=== PATIENT | female | born 1980 | race Caucasian/White ===

== ENCOUNTER → 2017-08-13 | Outpatient (CLI) | payer OTHER ==
[~2017-08-13] MED LIST: BENTYL10 MG/1 ML IV; LEVAQUIN500 MG PO; LEXAPRO10 MG PO
[2017-08-13 13:36] LABS: BASOPHILS # (AUTO) 0.1 (0.0-0.1); BASOPHILS % 0.7 % (0.0-1.0); EOSINOPHILS # (AUTO) 0.3 (0.0-0.4); HEMATOCRIT 42.3 % (34.2-44.1); HEMOGLOBIN 14.4 g/dL (12.0-16.0); LYMPHOCYTES # (AUTO) 2.6 (1.0-3.2); LYMPHOCYTES % 27.5 % (18.0-39.1); MEAN CORPUSCULAR HEMOGLOBIN 31.2 pg (28-32); MEAN CORPUSCULAR VOLUME 91.8 fL (81-99); MONOCYTES # (AUTO) 0.8 (0.2-0.8); MONOCYTES % 8.7 % (4.4-11.3); NEUTROPHILS # (AUTO) 5.7 (2.1-6.9); NEUTROPHILS % 59.9 % (38.7-80.0); PLATELET COUNT 315 x10e3/uL (140-360); RED BLOOD COUNT 4.61 x10e6/uL (3.6-5.1); RED CELL DISTRIBUTION WIDTH 12.6 % (11.7-14.4)
[2017-08-13 13:37] LABS: BILIRUBIN,URINE NEGATIVE (NEGATIVE); KETONES,URINE NEGATIVE (NEGATIVE); LEUKOCYTE ESTERASE ,URINE NEGATIVE (NEGATIVE); NITRITE,URINE NEGATIVE (NEGATIVE); PROTEIN,URINE DIPSTICK NEGATIVE (NEGATIVE); URINE UROBILINOGEN 0.2 mg/dL (0.2 - 1)
[2017-08-13 13:45] LABS: CLARITY,URINE SL CLOUDY (CLEAR); COLOR,URINE YELLOW (YELLOW)
[2017-08-13 13:56] LABS: ALANINE AMINOTRANSFERASE 28 IU/L (0-55); ALBUMIN/GLOBULIN RATIO 1.5 (0.8-2.0); ALKALINE PHOSPHATASE 52 IU/L (40-150); ANION GAP 12.2 mmol/L (8-16); BLOOD UREA NITROGEN 14 mg/dL (7-26); BUN/CREATININE RATIO 21 (6-25); CALCIUM 9.5 mg/dL (8.4-10.2); CARBON DIOXIDE 28 mmol/L (22-29); CHLORIDE 104 mmol/L (98-107); CREATININE, SERUM 0.68 mg/dL (0.57-1.11); EST GLOMERULAR FILTRATION RATE > 60 ML/MIN (60-); GLUCOSE 97 mg/dL (74-118); POTASSIUM 5.2 mmol/L (3.5-5.1); SODIUM 139 mmol/L (136-145)
[2017-08-13 14:13] LABS: BACTERIA,URINE RARE /HPF; EPITHELIAL CELLS,URINE MODERATE /LPF; WBC,URINE (MAN) 0-5 /HPF (0-5)
--- NOTE | 2017-08-13 14:59 | Diagnostic Imaging Report ---
PROCEDURE:US GALLBLADDER COMPARISON:None. INDICATIONS:ABDOMINAL PAIN FINDINGS: LIVER: Size:17.2 cm in the right midclavicular line, enlarged Appearance:Increased echogenicity, smooth contour Mass:No focal masses GALLBLADDER: Stones/Sludge:Stones and sludge Appearance:Wall is thickened measuring 5 mm. No pericholecystic fluid or hydrops. Sonographic Qureshi's Sign:Negative BILE DUCTS: Intrahepatic Ducts:No dilation Extrahepatic Ducts:Common bile duct measures 0.9 cm, mildly dilated PANCREAS: Visualized portions of the neck and proximal body are normal. RIGHT KIDNEY: Size:11.3 cm in length Echogenicity:Normal Collecting System:No hydronephrosis Stone:None Cyst/Mass:None VESSELS: Aorta:Visualized portions are normal. Inferior Vena Cava:Visualized portions are normal. Main Portal Vein:1.3 cm, normal size with hepatopetal flow. FREE FLUID: No ascites or pleural effusions. CONCLUSION: Cholelithiasis with mild gallbladder wall thickening but without sonographic Qureshi's sign. Findings are suspicious for acute cholecystitis. Mildly dilated common bile duct measuring 9 mm which raises concern for choledocholithiasis. Consider MRCP for further evaluation. Findings discussed with Dr. Sheffield on 08/13/2017 at 2:55 pm. Dictated by: Oren Morse M.D. on 08/13/2017 at 14:44 Electronically approved by: Oren Morse M.D. on 08/13/2017 at 14:59
== END ==
LOC: US 12:25
PROVIDERS: ATTEND Surgery
DX: R10.9 Unspecified abdominal pain (principal); Z87.19 Personal history of other diseases of the digestive system
CPT/HCPCS: 36415; 76705; 80053; 81001; 85025

== ENCOUNTER → 2017-08-16 | Day surgery (SDC) | payer OTHER ==
[~2017-08-16] MED LIST changes: +ACETAMINOPHEN 1000 MG/100 ML IV ONE; +BUPIVACAINE 0.25%/EPI 30ML SDV INJ ONE; +DEXAMETHASONE SOD PHOS INJ 4 MG/ML VIAL ONE; +FENTANYL CITRATE/PF 100MCG/2 ML INJ ONE; +GLYCOPYRROLATE INJ 1MG/ 5 ML SYR ONE; +LIDOCAINE HCL 2% LOCAL INJ 5 ML SDV VIAL INJ ONE; +MIDAZOLAM HCL 2 MG/2 ML VIAL ONE; +NEOSTIGMINE 5 MG/5ML SYR ONE; +ONDANSETRON HCL INJ 2 MG/ML VIAL ONE; +PROPOFOL IV EMULSION 10 MG/ML 20 ML VIAL ONE; +ROCURONIUM BROMIDE 10 MG/ML 5ML VIAL ONE; +SEVOFLURANE INHAL SOLN 250 ML PEN BTL ONE; +TYLENOL # 31 EA PO
--- OUTSIDE RECORDS SUMMARY | 2017-08-16 07:53 | XMS REPORT ---
Author Author [facility] Address Unknown Phone Unavailable Care Team Providers Care Metal Weather Stripper Name Role Phone ABDOUL SHEFFIELD Unavailable Unavailable Problems This patient has no known problems. Allergies, Adverse Reactions, Alerts This patient has no known allergies or adverse reactions. Medications This patient has no known medications. Results Test Description Test Time Test Comments Text Results Atomic Results Result Comments US GALLBLADDER [place] [address] Patient Name: DARÍO GRAYSON MR #: [id number] : 1980 Age/Sex: 37/F Req #: [id number] Adm Physician: Ordered by: ABDOUL SHEFFIELD MD Report #: [id number] Location: US Room/Bed: __ Procedure: [id number] US/US GALLBLADDER Exam Date: Exam Time: REPORT STATUS: Signed PROCEDURE: US GALLBLADDER COMPARISON: None. INDICATIONS: ABDOMINAL PAIN FINDINGS: LIVER: Size: 17.2 cm in the right midclavicular line, enlarged Appearance: Increased echogenicity, smooth contour Mass: No focal masses GALLBLADDER: Stones/Sludge: Stones and sludge Appearance: Wall is thickened measuring 5 mm. No pericholecystic fluid or hydrops. Sonographic Qureshi's Sign: Negative BILE DUCTS: Intrahepatic Ducts: No dilation Extrahepatic Ducts: Common bile duct measures 0.9 cm, mildly dilated PANCREAS: Visualized portions of the neck and proximal body are normal. RIGHT KIDNEY: Size: 11.3 cm in length Echogenicity : Normal Collecting System: No hydronephrosis Stone: None Cyst/Mass : None VESSELS: Aorta: Visualized portions are normal. Inferior Vena Cava: Visualized portions are normal. Main Portal Vein: 1.3 cm, normal size with hepatopetal flow. FREE FLUID: No ascites or pleural effusions. CONCLUSION: Cholelithiasis with mild gallbladder wall thickening but without sonographic Qureshi's sign. Findings are suspicious for acute cholecystitis. Mildly dilated common bile duct measuring 9 mm which raises concern for choledocholithiasis. Consider MRCP for further evaluation. Findings discussed with Dr. Sheffield on 08/13/2017 at 2:55 pm. Dictated by: Oren Conklin M.D. on 08/13/2017 at 14:44 Electronically approved by: Oren Conklin M.D. on 08/13/2017 at 14:59 Dictated By: OREN CONKLIN MD 0900 Transcribed By: ROSENDA on 08/13/17 [id number] COPY TO: ABDOUL SHEFFIELD MD
--- NOTE | 2017-08-16 13:30 | Operative Report ---
DATE OF PROCEDURE: August 16, 2017 PREOPERATIVE DIAGNOSIS: Cholelithiasis, chronic cholecystitis. POSTOPERATIVE DIAGNOSIS: Cholelithiasis, chronic cholecystitis. PROCEDURE PERFORMED: Laparoscopic cholecystectomy. CENSUS TAKER: DIANA Franklin ESTIMATED BLOOD LOSS: Minimal. DRAINS: None. COMPLICATIONS: None. INDICATIONS AND FINDINGS: This patient is a 37-year-old female with at least an 11 year history of right upper quadrant pain radiating to the back, associated with fatty food. The patient was diagnosed at least 11 years ago when living in [place]. She was advised surgery, because of personal reasons was not able to proceed. The patient was seen by me in the office as an outpatient. She had an ultrasound that revealed gallstones. Liver chemistries were normal. There was no history of jaundice. INTRAOPERATIVE FINDINGS: The patient had a short cystic duct that did not appear to be dilated. There were at least 2 large stones in the neck of the gallbladder. DESCRIPTION OF PROCEDURE: With the patient lying on the operative table in the supine position, after administration of general anesthesia, she was prepped and draped for laparoscopic cholecystectomy. The procedure was begun by establishing a pneumoperitoneum in the right upper quadrant midclavicular line because of a previous tubal ligation. The pneumoperitoneum was insufflated to 15 mm of pressure, and then the 5 mm trocar was placed in that location and then the 5 mm camera introduced. Under direct vision with the camera, we placed an umbilical 10-11 trocar port site away from some adhesions to the omentum in the suprapubic region. After placement of the left anterior trocar, we rotated the patient to the left and with the head up and placed a 10-11 subxiphoid port and finally a right anterior axillary line trocar. The gallbladder was rather long. It was tense. It contained 2 large stones in its neck, and the wall was thickened. The upper part of the gallbladder was intrahepatic. All of this was consistent with chronic cholecystitis. We milked the 2 stones upwards at the area of the neck of the gallbladder and then retracted the gallbladder cephalad with grasping forceps through the 5 mm trocar in the right midclavicular line, and the neck of the gallbladder was retracted laterally and inferiorly with another 5 mm trocar. We began the dissection until we identified the cystic duct as well as the cystic artery. The junction with the common bile duct was seen 360 degrees circumferentially. At this point, we clipped the cystic duct distally 3 times, once proximally, as well as the cystic artery and then transected the 2 structures between titanium clips. Then we took the gallbladder down from the liver bed using a combination of electrocautery, hydrodissection, traction and countertraction. The gallbladder, as stated previously, was very long with the fundus of the gallbladder somewhat intrahepatic. We were able to dissect the gallbladder from the liver bed. Bleeding points were cauterized. The gallbladder was placed in an endobag and removed through the umbilical port. We had to enlarge the incision significantly to remove this large gallbladder. After we did that, we placed under direct vision with the camera four 1 Vicryls to close the large defect in the umbilical site and then reinstituted the pneumoperitoneum with a 10-11 trocar placed in that location. Inspected the operative field. There was no bile leak, no bleeding. We irrigated the right upper quadrant, the subhepatic fossa, and there was no bleeding, no bowel injury, no bile leak. We released the pneumoperitoneum. We tied the umbilical stitches, and then we placed two 0 Vicryls in the umbilical port site as well as the subxiphoid port, and then the skin of the umbilical port was closed using 3-0 silk interrupted vertical mattress. The remaining skin port sites were closed using wally. Marcaine 0.25% with epinephrine was given as a local block at the end of the case. The patient tolerated the procedure well and was taken to the recovery room in stable condition. Job#: [id number] CARMEN
== END | disposition home or self-care (01) ==
LOC: OR 07:50
PROVIDERS: ATTEND Surgery
DX: K80.00 Calculus of gallbladder with acute cholecystitis without obstruction (principal); K80.10 Calculus of gallbladder with chronic cholecystitis without obstruction; Z68.35 Body mass index [BMI] 35.0-35.9, adult; Z87.891 Personal history of nicotine dependence
CPT/HCPCS: 47562; 81025; 88304; C1766; J1100; J2001; J2250; J2405

== ENCOUNTER 2017-08-19 15:36 | Inpatient (IN) | payer OTHER ==
[~2017-08-19] VITALS: Ht 157.5 cm; Wt 88.0 kg
[~2017-08-19 15:36] MED LIST changes: -ACETAMINOPHEN 1000 MG/100 ML IV ONE; -BUPIVACAINE 0.25%/EPI 30ML SDV INJ ONE; -DEXAMETHASONE SOD PHOS INJ 4 MG/ML VIAL ONE; -FENTANYL CITRATE/PF 100MCG/2 ML INJ ONE; -GLYCOPYRROLATE INJ 1MG/ 5 ML SYR ONE; -LIDOCAINE HCL 2% LOCAL INJ 5 ML SDV VIAL INJ ONE; -MIDAZOLAM HCL 2 MG/2 ML VIAL ONE; -NEOSTIGMINE 5 MG/5ML SYR ONE; -ONDANSETRON HCL INJ 2 MG/ML VIAL ONE; -PROPOFOL IV EMULSION 10 MG/ML 20 ML VIAL ONE; -ROCURONIUM BROMIDE 10 MG/ML 5ML VIAL ONE; -SEVOFLURANE INHAL SOLN 250 ML PEN BTL ONE; -TYLENOL # 31 EA PO
[2017-08-19] MEDS ORDERED: KETOROLAC TROMETHAMINE 30 MG/ML VIAL IV STA (16:20)
[2017-08-19 16:26] LABS: BASOPHILS # (AUTO) 0.1 (0.0-0.1); BASOPHILS % 0.4 % (0.0-1.0); EOSINOPHILS # (AUTO) 0.2 (0.0-0.4); EOSINOPHILS % 1.8 % (0.0-6.0); HEMATOCRIT 44.1 % (34.2-44.1); HEMOGLOBIN 15.3 g/dL (12.0-16.0); LYMPHOCYTES # (AUTO) 1.8 (1.0-3.2); LYMPHOCYTES % 16.1 % (18.0-39.1); MEAN CORPUSCULAR HEMOGLOBIN 31.1 pg (28-32); MEAN CORPUSCULAR HGB CONC 34.7 g/dL (31-35); MEAN CORPUSCULAR VOLUME 89.6 fL (81-99); MONOCYTES # (AUTO) 0.8 (0.2-0.8); MONOCYTES % 7.3 % (4.4-11.3); NEUTROPHILS # (AUTO) 8.3 (2.1-6.9); PLATELET COUNT 315 x10e3/uL (140-360); RED BLOOD COUNT 4.92 x10e6/uL (3.6-5.1); RED CELL DISTRIBUTION WIDTH 12.3 % (11.7-14.4)
[2017-08-19 16:28] LABS: BILIRUBIN,URINE NEGATIVE (NEGATIVE); CLARITY,URINE SL CLOUDY (CLEAR); COLOR,URINE YELLOW (YELLOW); KETONES,URINE NEGATIVE (NEGATIVE); LEUKOCYTE ESTERASE ,URINE NEGATIVE (NEGATIVE); NITRITE,URINE NEGATIVE (NEGATIVE); PROTEIN,URINE DIPSTICK NEGATIVE (NEGATIVE); URINE UROBILINOGEN 0.2 mg/dL (0.2 - 1)
[2017-08-19 16:30] LABS: PREGNANCY TEST, URINE NEGATIVE (NEGATIVE)
[2017-08-19 16:38] LABS: ALANINE AMINOTRANSFERASE 672 IU/L (0-55); ALBUMIN/GLOBULIN RATIO 1.2 (0.8-2.0); ALKALINE PHOSPHATASE 193 IU/L (40-150); ANION GAP 14.7 mmol/L (8-16); BLOOD UREA NITROGEN 9 mg/dL (7-26); BUN/CREATININE RATIO 13 (6-25); CARBON DIOXIDE 25 mmol/L (22-29); CHLORIDE 102 mmol/L (98-107); CREATININE, SERUM 0.71 mg/dL (0.57-1.11); EST GLOMERULAR FILTRATION RATE > 60 ML/MIN (60-); GLUCOSE 105 mg/dL (74-118); POTASSIUM 3.7 mmol/L (3.5-5.1); SODIUM 138 mmol/L (136-145)
[2017-08-19 16:39] LABS: AMYLASE 28 U/L (25-125); LIPASE 16 U/L (8-78); RBC,URINE 0-5 /HPF (0-5); WBC,URINE (MAN) 0-5 /HPF (0-5)
[2017-08-19 16:40] LABS: BACTERIA,URINE FEW /HPF; EPITHELIAL CELLS,URINE MANY /LPF
[2017-08-19] MEDS ORDERED: ONDANSETRON HCL 4 MG ORAL DISINTEGRATING TAB PO STA (16:42)
[2017-08-19] MEDS ORDERED: HYDROMORPHONE 1MG/1ML INJ IV STA (16:42)
[2017-08-19] MEDS ORDERED: SODIUM CHLORIDE 0.9% 1000 ML BAG IV ONE (16:45)
[2017-08-19] MEDS ORDERED: DIATRIZOATE MEGL/DIATRIZOA SOD 30 ML BTL PO ONE (17:05)
[2017-08-19] MEDS ORDERED: METRONIDAZOLE 500MG/NS 100ML 100 ML IV STA (17:06)
[2017-08-19] MEDS ORDERED: LEVOFLOXACIN 750MG/D5W 150ML 150 ML IV ONE (17:15)
[2017-08-19 17:28] LABS: CREATINE KINASE 63 IU/L (29-168)
--- NOTE | 2017-08-19 18:51 | Diagnostic Imaging Report ---
PROCEDURE: CT ABDOMEN AND PELVIS WITH CONTRAST TECHNIQUE: The abdomen and pelvis were scanned utilizing a multidetector helical scanner from the diaphragm to the lesser trochanter after the IV administration of 100 cc of Isovue 370 and the oral administration of Gastrografin mixture. Coronal and sagittal multiplanar reformations were obtained. COMPARISON: None. INDICATIONS: ADB PAIN POST CHOLECYSCTECOTMY. Umbilical pain that radiates straight back. Onset around 2:30. FINDINGS: LOWER THORAX: Normal. HEPATOBILIARY: No focal hepatic lesions. No biliary ductal dilatation. Common bile duct measures 0.6 cm. 0.6 cm hypodensity adjacent to the distal common bile duct near the ampulla of Vater. On the sagittal and coronal images this is abutting the duct but does not appear to be intraluminal. Postoperative changes of a cholecystectomy with mild inflammatory changes and trace fluid adjacent to the liver. SPLEEN: No splenomegaly. PANCREAS: No focal masses or ductal dilatation. ADRENALS: No adrenal nodules. KIDNEYS/URETERS: No hydronephrosis, stones, or solid mass lesions. PELVIC ORGANS/BLADDER: Unremarkable. PERITONEUM / RETROPERITONEUM: Trace free fluid in the deep pelvis. LYMPH NODES: No lymphadenopathy. VESSELS: Unremarkable. GI TRACT: No distention or wall thickening. BONES AND SOFT TISSUES:. Fat stranding around the umbilicus related to laparoscopic approach. Several overlying skin wally consistent with arthroscopic port insertion.. IMPRESSION: 1. New postoperative changes of cholecystectomy with postoperative changes in the cholecystectomy bed with trace of free fluid adjacent to the right hepatic lobe anteriorly. 2. 0.6 cm hyperdensity in the pancreatic head and ampulla Vater abutting the common bile duct. This may represent a stone within the common bile duct. However, on several images it appears to abut the duct and is not within the duct. 3. Otherwise, no acute abnormalities identified. Dictated by: Luis Soas M.D. on 08/19/2017 at 18:52 Electronically approved by: Luis Sosa M.D. on 08/19/2017 at 18:52
--- NOTE | 2017-08-19 18:58 | History and Physical ---
CHIEF COMPLAINT: Abdominal pain. The patient is a 37-year-old female, who underwent laparoscopic cholecystectomy on August 16, 2017. The procedure was performed as an outpatient and she was discharged home. She was doing well until today, when she suddenly developed abdominal pain. The pain was located in the umbilical and suprapubic area and radiated to the side. No nausea, no vomiting, no fever or chills. The patient has been seen in the emergency room, where she is awaiting a CAT scan. The patient's white count is 11.7. His liver chemistries show normal bilirubin with an elevation of the AST to 119, ALT to 672, and alkaline phosphatase to 193. The patient's intraoperative findings were cholelithiasis with thickening of the gallbladder, large stones that were impacted in the neck of the gallbladder. Preoperatively, her liver chemistries were normal twice. She had an ultrasound as well as a CT scan preoperatively. Common bile duct was 0.9 cm. The patient's history dates back to at least 11 years with right upper quadrant pain. Because of personal reasons, she was not able to have surgery done at that time, when she lived in [place]. The past medical history and the rest of the history unchanged from the previous admission. Of note is the fact that the patient has a history of anxiety disorder. PAST MEDICAL HISTORY: Unchanged from preivous admission. REVIEW OF SYSTEMS : As per history of present illness. PHYSICAL EXAMINATION GENERAL: A 37-year-old female, in no acute distress. VITALS: She is afebrile with stable vital signs. HEAD, EYES, EARS, NOSE, AND THROAT: No acute process. LUNGS: Clear. HEART: Regular rhythm. ABDOMEN: Soft with some right upper quadrant tenderness. The wounds are healing well. ASSESMENT : Rule bile leak vs retaines common duct stone. PLAN : The patient is currently awaiting to undergo a CT scan of the abdomen and pelvis. This will guide further management. The plans for admission and for workup were discussed with the patient and she agrees with the plan. Job#: [id number] CQ MTDAlicia
[2017-08-19] MEDS ORDERED: ONDANSETRON HCL INJ 2 MG/ML VIAL IV PRN (19:00)
[2017-08-19] MEDS ORDERED: LEVOFLOXACIN 500MG/D5W 100ML IV SCH (19:00)
[2017-08-19] MEDS ORDERED: HYDROMORPHONE 1MG/1ML INJ IV PRN (19:00)
[2017-08-19] MEDS: D5.45%NS/KCL 20MEQ 1,000 ML IV SCH (19:41)
[2017-08-19] MEDS: KETOROLAC TROMETHAMINE 30 MG/ML VIAL IV PRN (21:10)
[2017-08-19 21:25] VITALS: BP 179/80
[2017-08-19] MEDS ORDERED: SODIUM CHLORIDE 0.9% 50ML 50 ML ONE (21:39)
[2017-08-19] MEDS ORDERED: IOPAMIDOL 370 MG/ML 200 ML INFUS..BTL INJ ONE (21:40)
[2017-08-19 23:06] VITALS: BP 179/80
[2017-08-20] VITALS: BP 179/80
[2017-08-20] MEDS ORDERED: METRONIDAZOLE 500MG/NS 100ML IV SCH
[2017-08-20] MEDS ORDERED: SODIUM CHLORIDE 0.9% 50ML 0 ML ONE (02:02)
[2017-08-20] MEDS ORDERED: IOPAMIDOL 370 MG/ML 200 ML INFUS..BTL INJ ONE (02:03)
[2017-08-20] MEDS: METRONIDAZOLE 500MG/NS 100ML 100 ML IV SCH ×4 (02:24→18:14)
[2017-08-20 02:31] VITALS: BP 105/58
[2017-08-20 04:00] VITALS: BP 115/65
[2017-08-20] MEDS: D5.45%NS/KCL 20MEQ 1,000 ML IV SCH ×3 (06:54→19:00)
[2017-08-20] MEDS: KETOROLAC TROMETHAMINE 30 MG/ML VIAL IV PRN (06:55)
[2017-08-20 06:57] LABS: BASOPHILS # (AUTO) 0.1 (0.0-0.1); BASOPHILS % 0.6 % (0.0-1.0); EOSINOPHILS # (AUTO) 0.2 (0.0-0.4); EOSINOPHILS % 2.3 % (0.0-6.0); HEMATOCRIT 35.1 % (34.2-44.1); HEMOGLOBIN 11.9 g/dL (12.0-16.0); LYMPHOCYTES # (AUTO) 1.6 (1.0-3.2); LYMPHOCYTES % 16.5 % (18.0-39.1); MEAN CORPUSCULAR HGB CONC 33.9 g/dL (31-35); MEAN CORPUSCULAR VOLUME 91.4 fL (81-99); MONOCYTES # (AUTO) 0.8 (0.2-0.8); MONOCYTES % 8.4 % (4.4-11.3); NEUTROPHILS % 71.8 % (38.7-80.0); PLATELET COUNT 278 x10e3/uL (140-360); RED BLOOD COUNT 3.84 x10e6/uL (3.6-5.1); RED CELL DISTRIBUTION WIDTH 12.3 % (11.7-14.4)
[2017-08-20 07:18] LABS: ALANINE AMINOTRANSFERASE 394 IU/L (0-55); ALBUMIN 3.2 g/dL (3.5-5.0); ALBUMIN/GLOBULIN RATIO 1.2 (0.8-2.0); ALKALINE PHOSPHATASE 170 IU/L (40-150); ANION GAP 10.7 mmol/L (8-16); BLOOD UREA NITROGEN 7 mg/dL (7-26); BUN/CREATININE RATIO 11 (6-25); CALCIUM 8.9 mg/dL (8.4-10.2); CARBON DIOXIDE 25 mmol/L (22-29); CHLORIDE 106 mmol/L (98-107); CREATININE, SERUM 0.62 mg/dL (0.57-1.11); EST GLOMERULAR FILTRATION RATE > 60 ML/MIN (60-); GLUCOSE 103 mg/dL (74-118); POTASSIUM 3.7 mmol/L (3.5-5.1); SODIUM 138 mmol/L (136-145)
[2017-08-20 08:20] VITALS: BP 114/75
[2017-08-20 20:00] VITALS: BP 122/73
[2017-08-20 20:05] VITALS: BP 122/73
[2017-08-20] MEDS: LEVOFLOXACIN 500MG/D5W 100ML 100 ML IV SCH ×2 (20:46→20:47)
[2017-08-21] VITALS: BP 110/52
[2017-08-21] MEDS: METRONIDAZOLE 500MG/NS 100ML 100 ML IV SCH ×2 (00:20→05:28)
[2017-08-21] MEDS: D5.45%NS/KCL 20MEQ 1,000 ML IV SCH (03:00)
[2017-08-21 04:00] VITALS: BP 125/59
[2017-08-21 07:29] LABS: BASOPHILS # (AUTO) 0.1 (0.0-0.1); BASOPHILS % 0.6 % (0.0-1.0); EOSINOPHILS # (AUTO) 0.4 (0.0-0.4); EOSINOPHILS % 4.9 % (0.0-6.0); HEMATOCRIT 35.2 % (34.2-44.1); HEMOGLOBIN 11.8 g/dL (12.0-16.0); LYMPHOCYTES # (AUTO) 2.1 (1.0-3.2); LYMPHOCYTES % 24.6 % (18.0-39.1); MEAN CORPUSCULAR HGB CONC 33.5 g/dL (31-35); MEAN CORPUSCULAR VOLUME 92.4 fL (81-99); MONOCYTES # (AUTO) 0.7 (0.2-0.8); MONOCYTES % 8.4 % (4.4-11.3); NEUTROPHILS # (AUTO) 5.1 (2.1-6.9); NEUTROPHILS % 61.3 % (38.7-80.0); PLATELET COUNT 278 x10e3/uL (140-360); RED BLOOD COUNT 3.81 x10e6/uL (3.6-5.1); RED CELL DISTRIBUTION WIDTH 12.5 % (11.7-14.4)
[2017-08-21 07:59] LABS: ALANINE AMINOTRANSFERASE 229 IU/L (0-55); ALBUMIN/GLOBULIN RATIO 1.3 (0.8-2.0); ALKALINE PHOSPHATASE 145 IU/L (40-150); ANION GAP 9.7 mmol/L (8-16); BLOOD UREA NITROGEN 10 mg/dL (7-26); BUN/CREATININE RATIO 16 (6-25); CALCIUM 8.9 mg/dL (8.4-10.2); CARBON DIOXIDE 25 mmol/L (22-29); CHLORIDE 108 mmol/L (98-107); CREATININE, SERUM 0.64 mg/dL (0.57-1.11); EST GLOMERULAR FILTRATION RATE > 60 ML/MIN (60-); GLUCOSE 114 mg/dL (74-118); POTASSIUM 3.7 mmol/L (3.5-5.1); SODIUM 139 mmol/L (136-145)
[2017-08-21 08:33] VITALS: BP 123/69
[2017-08-21 11:19] VITALS: BP 123/69
[2017-08-22] MEDS ORDERED: TYLENOL # 31 EA PO (10:32)
--- NOTE | 2017-09-02 09:17 | Diagnostic Imaging Report ---
PROCEDURE: MRCP WITHOUT CONTRAST TECHNIQUE: Multisequence multiplanar MRCP images were obtained of the abdomen without administration contrast. COMPARISON: CT 08/19/2017 INDICATIONS: Not provided. FINDINGS: LACK OF GADOLINIUM DECREASES SENSITIVITY FOR DETECTION OF INTRA-ABDOMINAL PATHOLOGY. LIVER: Normal signal and contour. No focal signal abnormalities. BILIARY: Cholecystectomy with fluid and stranding within the surgical bed. No ductal dilatation or filling defect. Calcifications are difficult to visualize with MRI. Previous punctate density in the pancreatic head on CT is not seen as a filling defect on the current MRI suggesting this represents a parenchymal, CBD wall, or vascular calcification. PANCREAS: No mass or ductal dilatation. SPLEEN: No splenomegaly. ADRENALS: No nodules. KIDNEYS: No hydronephrosis or mass in the imaged portion of the kidneys. PERITONEUM / RETROPERITONEUM: Trace perihepatic free fluid. LYMPH NODES: No upper abdominal lymphadenopathy. VESSELS: Unremarkable. BONES AND SOFT TISSUES: No suspicious marrow signal abnormalities. T2 hyperintense edema in the epigastric fat deep to an area of dephasing from skin wally. IMPRESSION: 1. No intrahepatic or extrahepatic biliary ductal dilatation. No evidence of choledocholithiasis. 2. Cholecystectomy with post-operative stranding and fluid in the surgical bed. Dictated by: Oren Morse M.D. on 08/20/2017 at 13:08 Electronically approved by: Oren Morse M.D. on 08/20/2017 at 13:08
== END 2017-08-21 13:03 | disposition home or self-care (01) | DRG 395 ==
LOC: ER 15:36 → MED/SURG 19:22
PROVIDERS: ADMIT Surgery; ATTEND Surgery
DX: K91.86 Retained cholelithiasis following cholecystectomy (principal); F41.9 Anxiety disorder, unspecified; Y83.6 Removal of other organ (partial) (total) as the cause of abnormal reaction of the patient, or of later complication, without mention of misadventure at the time of the procedure
CPT/HCPCS: 36415; 74177; 74181; 80053; 81001; 81025; 82150; 82550; 82553; 83605; 83690; 84484; 85025; 87040; 99284; J1170; J1885; J1956; J7030; Q9967

== ENCOUNTER 2017-08-22 04:50 | Inpatient (IN) | payer OTHER ==
[~2017-08-22] VITALS: Ht 160 cm; Wt 92.5 kg
--- OUTSIDE RECORDS SUMMARY | 2017-08-22 04:53 | XMS REPORT | Continuity of Care Document ---
Author Author [facility] Organization [facility] Address [address] [place] [address] Phone Unavailable Care Team Providers Care Automotive Sales Professional Name Role Phone JANICEELIANE FLEMING PCP Insurance Providers Guarantor Josette Barajaserine Address [address] [place] [address] Email [email or web address] [email or web address] [employer] Hmo Policy Number [id number] Subscriber's Name YolandasavannahDarío Relationship 18 Self / Same As Patient Group Number [id number] Group Name RAMEZ Effective Date 17 Advance Directives Directive Response Recorded Date/Time Does the patient have an advance directive? No 08/19/17 10:41pm If yes, is advance directive on file with [facility]? No 08/19/17 10:41pm If not on file with [facility] will patient provide a copy? No 08/19/17 10:41pm Do you have a Directive to Physician? No 08/19/17 6:34pm Do you have a Medical Power of Rand Maker? No 08/19/17 6:34pm Do you have an out of hospital Do Not Resuscitate Order? No 08/19/17 6:34pm Do you have any special needs we should be aware of? No 08/19/17 6:34pm Do you have a support person here with you today? Yes 08/19/17 6:34pm Did patient receive Notice of Privacy Practices? Yes 08/19/17 6:34pm Did patient receive patient rights and responsibilities? Yes 08/19/17 6:34pm Problems Medical Problem Onset Date Status Common bile duct stone Unknown Medications Current Home Medications Medication Dose Units Route Directions Days Qty Instructions Start Date Dicyclomine Hcl (Bentyl) 10 Mg/1 Ml Ampul 10 Mg Intraven Four Times Daily Escitalopram Oxalate (Lexapro) 10 Mg Tablet 10 Mg Oral Daily 30 Tab Levofloxacin (Levaquin) 500 Mg Tablet 500 Mg Oral Daily Social History Social History Problem Response Recorded Date/Time Onset Date Status Hx Psychiatric Problems No 08/19/2017 10:41pm Not Applicable Not Applicable Hx Eating Disorder No 08/19/2017 10:41pm Not Applicable Not Applicable Hx Substance Use Disorder No 08/19/2017 10:41pm Not Applicable Not Applicable Hx Depression No 08/19/2017 10:41pm Not Applicable Not Applicable Hx Alcohol Use No 08/19/2017 10:41pm Not Applicable Not Applicable Hx Substance Use Treatment No 08/19/2017 10:41pm Not Applicable Not Applicable Hx Physical Abuse No 08/19/2017 10:41pm Not Applicable Not Applicable Smoking Status Start Date Stop Date Current every day smoker Hospital Discharge Instructions No hospital discharge instruction information available. Plan of Care Discharge Date 08/21/17 1:03pm Disposition HOME, SELF-CARE Instructions/Education Provided Abdominal Pain - Adult Prescriptions See Medication Section Additional Instructions/Education diet as tolerated follow up with your pcp follow up with Dr. Kim Winter in (1) week return to ER if any symptoms persist Functional Status Query Response Date Recorded Assistive Devices None August 19, 2017 11:06pm Ambulation Ability Independent August 19, 2017 11:06pm Toileting Ability Independent August 19, 2017 11:06pm Allergies, Adverse Reactions, Alerts No known allergies. Immunizations No immunization information available. Vital Signs Acute Vital Signs Vital Response Date/Time Temperature (Fahrenheit) 97.8 degrees F (97.6 - 99.5) 08/21/2017 11:19am Pulse Pulse Rate (adult) 81 bpm (60 - 90) 08/21/2017 11:19am Respiratory Rate 18 bpm (12 - 24) 08/21/2017 11:19am Blood Pressure 123/69 mm Hg 08/21/2017 11:19am Height 5 ft 2 in 08/19/2017 4:13pm Weight 194 lb 08/19/2017 4:13pm Body Mass Index 35.5 kg/m^2 08/19/2017 10:41pm Results Laboratory Results Test Name Result Units Flags Reference Collection Date/Time Result Date/ Time Comments White Blood Count 8.33 x10e3/uL 4.8-10.8 08/21/2017 6:40am 08/21/2017 7 :44am Red Blood Count 3.81 x10e6/uL 3.6-5.1 08/21/2017 6:40am 08/21/2017 7: 44am Hemoglobin 11.8 g/dL L 12.0-16.0 08/21/2017 6:40am 08/21/2017 7:44am Hematocrit 35.2 % 34.2-44.1 08/21/2017 6:40am 08/21/2017 7:44am Mean Corpuscular Volume 92.4 fL 81-99 08/21/2017 6:40am 08/21/2017 7: 44am Mean Corpuscular Hemoglobin 31.0 pg 28-32 08/21/2017 6:40am 08/21/2017 7:44am Mean Corpuscular Hemoglobin Concent 33.5 g/dL 31-35 08/21/2017 6:40am 08/21/2017 7:44am Red Cell Distribution Width 12.5 % 11.7-14.4 08/21/2017 6:40am 2017 7:44am Platelet Count 278 x10e3/uL 140-360 08/21/2017 6:40am 08/21/2017 7: 44am Neutrophils (%) (Auto) 61.3 % 38.7-80.0 08/21/2017 6:40am 08/21/2017 7: 44am Lymphocytes (%) (Auto) 24.6 % 18.0-39.1 08/21/2017 6:40am 08/21/2017 7: 44am Monocytes (%) (Auto) 8.4 % 4.4-11.3 08/21/2017 6:40am 08/21/2017 7: 44am Eosinophils (%) (Auto) 4.9 % 0.0-6.0 08/21/2017 6:40am 08/21/2017 7: 44am Basophils (%) (Auto) 0.6 % 0.0-1.0 08/21/2017 6:40am 08/21/2017 7:44am IM GRANULOCYTES % 0.2 % 0.0-1.0 08/21/2017 6:40am 08/21/2017 7:44am Neutrophils # (Auto) 5.1 2.1-6.9 08/21/2017 6:40am 08/21/2017 7:44am Lymphocytes # (Auto) 2.1 1.0-3.2 08/21/2017 6:40am 08/21/2017 7:44am Monocytes # (Auto) 0.7 0.2-0.8 08/21/2017 6:40am 08/21/2017 7:44am Eosinophils # (Auto) 0.4 0.0-0.4 08/21/2017 6:40am 08/21/2017 7:44am Basophils # (Auto) 0.1 0.0-0.1 08/21/2017 6:40am 08/21/2017 7:44am Absolute Immature Granulocyte (auto 0.02 x10e3/uL 0-0.1 08/21/2017 6: 40am 08/21/2017 7:44am Urine Color YELLOW YELLOW 08/19/2017 4:00pm 08/19/2017 4:28pm Urine Clarity SL CLOUDY CLEAR 08/19/2017 4:00pm 08/19/2017 4:28pm Urine Specific Ruth 1.015 1.010-1.025 08/19/2017 4:00pm 2017 4:28pm Urine pH 8 H 5 - 7 08/19/2017 4:00pm 08/19/2017 4:28pm Urine Leukocyte Esterase NEGATIVE NEGATIVE 08/19/2017 4:00pm 2017 4:28pm Urine Nitrite NEGATIVE NEGATIVE 08/19/2017 4:00pm 08/19/2017 4:28pm Urine Protein NEGATIVE NEGATIVE 08/19/2017 4:00pm 08/19/2017 4:28pm Urine Glucose (UA) NEGATIVE NEGATIVE 08/19/2017 4:00pm 08/19/2017 4: 28pm Urine Ketones NEGATIVE NEGATIVE 08/19/2017 4:00pm 08/19/2017 4:28pm Urine Urobilinogen 0.2 mg/dL 0.2 - 1 08/19/2017 4:00pm 08/19/2017 4: 28pm Urine Bilirubin NEGATIVE NEGATIVE 08/19/2017 4:00pm 08/19/2017 4: 28pm Urine Blood 4+ H NEGATIVE 08/19/2017 4:00pm 08/19/2017 4:28pm Urine WBC 0-5 /HPF 0-5 08/19/2017 4:00pm 08/19/2017 4:40pm Urine RBC 0-5 /HPF 0-5 08/19/2017 4:00pm 08/19/2017 4:40pm Urine Bacteria FEW /HPF NONE 08/19/2017 4:00pm 08/19/2017 4:40pm Urine Epithelial Cells MANY /LPF NONE 08/19/2017 4:00pm 08/19/2017 4: 40pm Urine Test NEGATIVE NEGATIVE 08/19/2017 4:00pm 08/19/2017 4 :30pm Sodium Level 139 mmol/L 136-145 08/21/2017 6:40am 08/21/2017 8:01am Potassium Level 3.7 mmol/L 3.5-5.1 08/21/2017 6:40am 08/21/2017 8:01am Chloride Level 108 mmol/L H 98-107 08/21/2017 6:40am 08/21/2017 8:01am Carbon Dioxide Level 25 mmol/L -08/21/2017 6:40am 08/21/2017 8: 01am Anion Gap 9.7 mmol/L 8-08/21/2017 6:40am 08/21/2017 8:01am Blood Urea Nitrogen 10 mg/dL 7-08/21/2017 6:40am 08/21/2017 8:01am Creatinine 0.64 mg/dL 0.57-1.11 08/21/2017 6:40am 08/21/2017 8:01am BUN/Creatinine Ratio 16 6-25 08/21/2017 6:40am 08/21/2017 8:01am Estimat Glomerular Filtration Rate > 60 ML/MIN 60- 08/21/2017 6:40am 8:01am Ranges were taken from the National Kidney Disease Education Program and the National Kidney Foundation literature. Reference ranges: 60 or greater: Normal 16-59 (for 3 consecutive months): Chronic kidney disease 15 or less: Kidney failure Glucose Level 114 mg/dL 74-118 08/21/2017 6:40am 08/21/2017 8:01am Calcium Level 8.9 mg/dL 8.4-10.2 08/21/2017 6:40am 08/21/2017 8:01am Lactic Acid Level 10.0 MG/DL 4.5-19.8 08/19/2017 4:20pm 08/19/2017 5: 15pm Total Bilirubin 0.3 mg/dL 0.2-1.2 08/21/2017 6:40am 08/21/2017 8:01am Aspartate Amino Transf (AST/SGOT) 16 IU/L 5-34 08/21/2017 6:40am 2017 8:01am Alanine Aminotransferase (ALT/SGPT) 229 IU/L H 0-55 08/21/2017 6:40am 8:01am Total Protein 5.4 g/dL L 6.5-8.1 08/21/2017 6:40am 08/21/2017 8:01am Albumin 3.0 g/dL L 3.5-5.0 08/21/2017 6:40am 08/21/2017 8:01am Globulin 2.4 g/dL 2.3-3.5 08/21/2017 6:40am 08/21/2017 8:01am Albumin/Globulin Ratio 1.3 0.8-2.0 08/21/2017 6:40am 08/21/2017 8: 01am Alkaline Phosphatase 145 IU/L 40-150 08/21/2017 6:40am 08/21/2017 8: 01am Creatine Kinase 63 IU/L 29-168 08/19/2017 4:00pm 08/19/2017 5:29pm Creatine Kinase MB 0.30 ng/mL 0-5.0 08/19/2017 4:00pm 08/19/2017 5: 37pm Troponin I < 0.001 ng/mL 0-0.300 08/19/2017 4:00pm 08/19/2017 5:37pm Amylase Level 28 U/L 25-125 08/19/2017 4:00pm 08/19/2017 4:40pm Lipase 16 U/L 8-78 08/19/2017 4:00pm 08/19/2017 4:40pm Microbiology Results Procedure Source Organism/Result Collection Date/Time Result Date/Time Result Status Blood Culture Blood NO GROWTH AFTER 24 HOURS 08/19/2017 4:22pm 08/20/2017 4:43pm Preliminary Procedures Procedure Status Date Provider(s) Laparoscopic cholecystectomy Completed 08/16/17 ABDOUL ORNELAS MD US gallbladder Active 08/13/17 ABDOUL ORNELAS MD Computed tomography of abdomen and pelvis with contrast Active 08/19/17 DESTINEE STEVENS MD Magnetic resonance cholangiopancreatography (MRCP) without contrast Active DESTINEE STEVENS MD Encounters Encounter Location Arrival/Admit Date Discharge/Depart Date Attending Provider Discharged Inpatient [facility] 08/19/17 7:22pm 08/21/17 1:03pm ABDOUL ORNELAS MD Registered Surgical Day Care [facility] 08/16/17 8:13am ABDOUL ORNELAS MD Registered Clinic [facility] 08/13/17 12:25pm ABDOUL ORNELAS MD
[2017-08-22] MEDS ORDERED: KETOROLAC TROMETHAMINE 30 MG/ML VIAL IV STA (05:48)
[2017-08-22] MEDS ORDERED: PANTOPRAZOLE 40 MG 10ML VIAL IV STA (05:48)
[2017-08-22] MEDS ORDERED: SODIUM CHLORIDE 0.9% 1000ML 1,000 ML IV STA (05:48)
--- NOTE | 2017-08-22 05:49 | Diagnostic Imaging Report ---
ABDOMEN COMP INCL UPR or DECUB Clinical history: Laparoscopic cholecystectomy, abdominal pain Technique: AP view abdomen Comparison: None Findings: Limited by portable technique. Clips and wally overlie the right upper abdomen. Moderate stool intermixed with contrast is seen in the colon. Mottled lucencies over the pelvis, presumably intraluminal contents/stool. No evidence of free air. Impression: Nonobstructive bowel gas pattern with moderate stool burden. Signed by: Dr Antoinette Thurman MD on 08/22/2017 5:46 AM
[2017-08-22 06:34] LABS: BASOPHILS # (AUTO) 0.1 (0.0-0.1); BASOPHILS % 0.5 % (0.0-1.0); EOSINOPHILS # (AUTO) 0.2 (0.0-0.4); EOSINOPHILS % 1.7 % (0.0-6.0); HEMATOCRIT 43.1 % (34.2-44.1); HEMOGLOBIN 14.5 g/dL (12.0-16.0); LYMPHOCYTES # (AUTO) 1.8 (1.0-3.2); LYMPHOCYTES % 13.1 % (18.0-39.1); MEAN CORPUSCULAR HEMOGLOBIN 30.9 pg (28-32); MEAN CORPUSCULAR HGB CONC 33.6 g/dL (31-35); MEAN CORPUSCULAR VOLUME 91.7 fL (81-99); NEUTROPHILS # (AUTO) 10.7 (2.1-6.9); NEUTROPHILS % 77.3 % (38.7-80.0); PLATELET COUNT 343 x10e3/uL (140-360); RED CELL DISTRIBUTION WIDTH 12.3 % (11.7-14.4)
[2017-08-22 06:38] LABS: INR 0.99; PROTHROMBIN TIME 12.3 seconds (11.9-14.5)
[2017-08-22 06:39] LABS: PARTIAL THROMBOPLASTIN TIME 31.9 seconds (23.8-35.5)
[2017-08-22 06:49] LABS: ALANINE AMINOTRANSFERASE 223 IU/L (0-55); ALBUMIN/GLOBULIN RATIO 1.2 (0.8-2.0); ALKALINE PHOSPHATASE 169 IU/L (40-150); AMYLASE 43 U/L (25-125); ANION GAP 13.9 mmol/L (8-16); BLOOD UREA NITROGEN 12 mg/dL (7-26); BUN/CREATININE RATIO 17 (6-25); CARBON DIOXIDE 23 mmol/L (22-29); CHLORIDE 103 mmol/L (98-107); CREATINE KINASE 32 IU/L (29-168); CREATININE, SERUM 0.71 mg/dL (0.57-1.11); EST GLOMERULAR FILTRATION RATE > 60 ML/MIN (60-); GLUCOSE 119 mg/dL (74-118); LIPASE 38 U/L (8-78); MAGNESIUM 1.9 MG/DL (1.3-2.1); POTASSIUM 3.9 mmol/L (3.5-5.1); SODIUM 136 mmol/L (136-145)
[2017-08-22] MEDS ORDERED: ONDANSETRON HCL INJ 2 MG/ML VIAL IV STA (07:31)
[2017-08-22] MEDS ORDERED: HYDROMORPHONE 1MG/1ML INJ IV STA ×2 (07:31→21:26)
[2017-08-22 07:32] LABS: CLARITY,URINE HAZY (CLEAR); COLOR,URINE AMBER (YELLOW)
[2017-08-22 07:33] LABS: BILIRUBIN,URINE NEGATIVE (NEGATIVE); KETONES,URINE NEGATIVE (NEGATIVE); LEUKOCYTE ESTERASE ,URINE NEGATIVE (NEGATIVE); NITRITE,URINE NEGATIVE (NEGATIVE); PROTEIN,URINE DIPSTICK NEGATIVE (NEGATIVE); URINE UROBILINOGEN 0.2 mg/dL (0.2 - 1)
[2017-08-22 07:44] LABS: RBC,URINE 0-5 /HPF (0-5); WBC,URINE (MAN) 0-5 /HPF (0-5)
[2017-08-22 07:45] LABS: BACTERIA,URINE MODERATE /HPF; EPITHELIAL CELLS,URINE MANY /LPF
[2017-08-22] MEDS: SODIUM CHLORIDE 0.9% 1000ML 1,000 ML IV SCH ×3 (08:03→23:40)
[2017-08-22] MEDS: METRONIDAZOLE 500MG/NS 100ML 100 ML IV SCH ×3 (08:03→17:30)
[2017-08-22] MEDS: PIPER-TAZ 3.375 GM 50 ML IV SCH ×4 (09:00→23:47)
[2017-08-22] MEDS: HYDROMORPHONE 1MG/1ML INJ IV PRN ×5 (09:45→23:20)
[2017-08-22 10:10] VITALS: BP 183/79
[2017-08-22] MEDS ORDERED: TYLENOL # 31 EA PO (10:32)
[2017-08-22 10:35] VITALS: BP 183/79
[2017-08-22] MEDS: KETOROLAC TROMETHAMINE 30 MG/ML VIAL IV PRN ×2 (11:25→18:15)
[2017-08-22] MEDS ORDERED: KETOROLAC TROMETHAMINE 30 MG/ML VIAL IM PRN (12:00)
[2017-08-22 20:34] VITALS: BP 144/89
[2017-08-22 21:20] VITALS: BP 144/89
[2017-08-22 21:44] LABS: BASOPHILS % 0.2 % (0.0-1.0); EOSINOPHILS % 0.1 % (0.0-6.0); HEMATOCRIT 36.9 % (34.2-44.1); HEMOGLOBIN 12.6 g/dL (12.0-16.0); LYMPHOCYTES # (AUTO) 1.3 (1.0-3.2); LYMPHOCYTES % 6.6 % (18.0-39.1); MEAN CORPUSCULAR HEMOGLOBIN 31.2 pg (28-32); MEAN CORPUSCULAR HGB CONC 34.1 g/dL (31-35); MEAN CORPUSCULAR VOLUME 91.3 fL (81-99); MONOCYTES # (AUTO) 1.5 (0.2-0.8); MONOCYTES % 7.9 % (4.4-11.3); NEUTROPHILS # (AUTO) 16.1 (2.1-6.9); NEUTROPHILS % 84.6 % (38.7-80.0); PLATELET COUNT 308 x10e3/uL (140-360); RED BLOOD COUNT 4.04 x10e6/uL (3.6-5.1); RED CELL DISTRIBUTION WIDTH 12.3 % (11.7-14.4)
[2017-08-22 22:04] LABS: ALANINE AMINOTRANSFERASE 166 IU/L (0-55); ALBUMIN 3.4 g/dL (3.5-5.0); ALBUMIN/GLOBULIN RATIO 1.2 (0.8-2.0); ALKALINE PHOSPHATASE 157 IU/L (40-150); AMYLASE 18 U/L (25-125); ANION GAP 11.9 mmol/L (8-16); BLOOD UREA NITROGEN 16 mg/dL (7-26); BUN/CREATININE RATIO 27 (6-25); CARBON DIOXIDE 24 mmol/L (22-29); CHLORIDE 102 mmol/L (98-107); CREATININE, SERUM 0.59 mg/dL (0.57-1.11); EST GLOMERULAR FILTRATION RATE > 60 ML/MIN (60-); GLUCOSE 113 mg/dL (74-118); POTASSIUM 3.9 mmol/L (3.5-5.1); SODIUM 134 mmol/L (136-145)
[2017-08-22] MEDS ORDERED: SODIUM CHLORIDE 0.9% 50ML 50 ML ONE (22:43)
[2017-08-22] MEDS ORDERED: IOPAMIDOL 370 MG/ML 200 ML INFUS..BTL INJ ONE (22:44)
--- NOTE | 2017-08-22 23:38 | Diagnostic Imaging Report ---
EXAM: CT ABDOMEN/PELVIS W DATE: 08/22/2017 10:34 PM INDICATION: \S\(R) LOWER ANTERIOR ABD PAIN, 03/02 NEW ONSET, IV CONTRAST \S\[id number] \S\2252 \S\Y COMPARISON: CT 08/19/2017, MRI 08/20/2017 TECHNIQUE: The abdomen and pelvis were scanned using a multidetector helical scanner. Coronal and sagittal reformations were obtained. Routine protocol performed. IV Contrast: 100 ml Isovue 370 FINDINGS: LOWER THORAX: New small right greater than left pleural effusions with increasing basilar opacity, likely atelectasis LIVER/BILIARY/PERITONEUM: Status post cholecystectomy. There is mild central intrahepatic and extrahepatic biliary ductal dilation. Radiopaque density seen on prior is lateral to the distal common bile duct (coronal image 48) on current study. There is increasing moderate perihepatic fluid and fluid in the gallbladder fossa. Small to moderate fluid tracks into the right paracolic gutter and pelvis. SPLEEN: Unremarkable PANCREAS: Unremarkable ADRENALS: No nodules KIDNEYS: Symmetric perfusion. No enhancing masses. No hydronephrosis. GI TRACT: Moderate colonic dilation which is also filled with stool contents and oral contrast from prior study. Normal appendix. VESSELS: Mild atherosclerotic changes. LYMPH NODES: No lymphadenopathy REPRODUCTIVE ORGANS/BLADDER: Unremarkable SOFT TISSUES: Unremarkable BONES: No suspicious bone lesions. IMPRESSION: 1. Increasing moderate perihepatic and gallbladder fossa fluid most compatible with a bile/cystic duct leak. 2. Colonic ileus. Findings discussed with Dr. Sheffield at the time of the study. Signed by: Dr Antoinette Thurman MD on 08/22/2017 11:34 PM
[2017-08-23 00:19] VITALS: BP 127/74
[2017-08-23] MEDS: METRONIDAZOLE 500MG/NS 100ML 100 ML IV SCH ×5 (00:20→17:54)
[2017-08-23] MEDS ORDERED: BUPIVACAINE 0.25%/EPI 30ML SDV INJ ONE (01:45)
--- NOTE | 2017-08-23 02:32 | Pre Op History & Physical ---
PREOPERATIVE HISTORY AND PHYSICAL CHIEF COMPLAINT: Abdominal pain. HISTORY OF PRESENT ILLNESS: The patient is a 37-year-old female who a week ago underwent laparoscopic cholecystectomy for chronic cholecystitis. The patient had the procedure performed as an outpatient and she was discharged home and she did well until Good Wednesday, at which time she experienced abdominal pain, which was severe, reason for which she came to the emergency room and subsequently admitted. At that time, workup revealed some mild elevation of the liver chemistries, transaminases, and alkaline phosphatase with normal bilirubin. CT scan of the abdomen revealed postoperative changes. The patient underwent an MRCP that revealed no choledocholithiasis. The patient was observed overnight. She was anxious to go home. She was evaluated by GI during that admission and the plan was to follow her up as an outpatient. She was discharged home on Wednesday, tolerating a regular diet well, she was afebrile, and the liver chemistries were coming down. The patient on August 21, 2017 came back to the hospital through the emergency room complaining again of severe pain. Her white count was 18,000. Her liver chemistries were minimally elevated. A repeat CT scan of the abdomen and pelvis revealed changes consistent with bile leak this time postoperative changes, there was increasing amount of fluid in the gallbladder bed fossa and perihepatic subdiaphragmatic area. There was no evidence of bowel perforation. At this point, the patient appears to have a bile leak and the plan is to proceed with laparoscopy, possible laparotomy and will drain the abdomen unless a major bile duct injury is found and then she will tentatively undergo ERCP first thing in the morning. PAST HISTORY: Remarkable for what has already been stated. There have been no previous changes. REVIEW OF SYSTEMS: Remarkable for what has already been stated. PHYSICAL EXAMINATION: GENERAL: Reveals a 37-year-old female. At this point, she has been sedated and is in no acute distress. ABDOMEN: Revealed some mild tenderness throughout, mainly in the upper abdomen. Bowel sounds are diminished. LUNGS: Clear. HEART: Revealed regular sinus rhythm. IMPRESSION: Probable bile leak. PLAN: As has been stated previously. Job#: [id number]
[2017-08-23] MEDS ORDERED: ACETAMINOPHEN 1000 MG/100 ML IV PRN (03:00)
[2017-08-23] MEDS ORDERED: FENTANYL CITRATE/PF 100MCG/2 ML INJ ONE ×3 (03:29→18:26)
[2017-08-23 04:00] VITALS: BP_SYST 130; BP_SYST 135; BP_DIAS 75
[2017-08-23] MEDS: DEXTROSE 5%/LACTATED RINGERS 1,000 ML IV SCH ×3 (04:30→18:07)
--- NOTE | 2017-08-23 04:45 | Operative Report ---
DATE OF PROCEDURE: August 23, 2017 PREOPERATIVE DIAGNOSIS: Bile peritonitis. POSTOPERATIVE DIAGNOSIS: Bile peritonitis secondary to gallbladder fossa duct of Luschka leak. OPERATIONS PERFORMED 1. Laparoscopic ligation of gallbladder fossa bile leak. 2. Peritoneal lavage and drainage of gallbladder fossa. BLOOD TYPER: Dr. Kody Sheffield ANESTHESIA: General. COMPLICATIONS: None. ESTIMATED BLOOD LOSS: Minimal. DESCRIPTION OF PROCEDURE: With the patient lying in bed in the supine position under good general endotracheal anesthesia, the abdomen was prepped with Betadine solution and draped in the usual manner. The old wally and sutures were then removed. The fascial Vicryl sutures at the umbilicus were then removed, and the abdomen was entered. Upon entering the abdominal cavity, immediately some clear colored bile fluid was encountered. Cultures were taken. A Nelda trocar was then fixed to the fascia. Pneumoperitoneum was then established. Under direct vision, an 11-mm trocar and two 5-mm trocars were placed in the upper abdomen through the old incisions. Laparoscopy at this point revealed the fact that there was as expected some free bile in the abdominal cavity. This was aspirated. At this point, I extended all the way down into the pelvis and also in the left upper quadrant. The majority of the fluid was then perihepatic area where there was already some fibrinous material in the dome of the liver and the undersurface of the diaphragm. All of this was aspirated. The omentum was stuck to the gallbladder fossa and this was slowly and carefully . At this point, we were able to get a good view of the entire gallbladder fossa, as well as the common bile duct and cystic duct junction. The clips of the cystic duct were in good position. There was no sign of any leakage from the cystic duct remnant. The cystic duct appeared to be well sealed. There was, however, upon further examination a small duct in the base of the gallbladder fossa were there was some clear bile emanating from this area. This was clearly the source of the bile leak. The small duct at the base of the gallbladder fossa was then oversewn with a 3-0 silk suture ligature. This seemed to totally stop the leakage. At this point, the abdomen was then copiously irrigated with many liters of saline solution. All 4 quadrants were irrigated. All of the fluid and fibrinous material was aspirated. We went back and checked the gallbladder fossa multiple times, and no further bile leak could be seen. Once the abdomen had been copiously irrigated and all of the bilious material that could be seen had been aspirated, a 10 flat Henry-Phoenix drain was then brought out through the lateral most trocar site, and left in the hepatorenal fossa, and sutured to the skin with 2-0 silk. The pneumoperitoneum was then evacuated, and all of the trocars were removed under direct vision. The midline fascia at the umbilicus was then closed with 3 [id number] of 0 Vicryl. All layers were infiltrated on the way out with a solution of 0.25% Marcaine. Subcutaneous tissue was approximated with 3-0 Vicryl and the skin was closed with clips. Dressings were applied. The sponge, lap and needle count was correct. The patient tolerated the procedure well and returned to the recovery room in stable condition. Job#: [id number] BONI
[2017-08-23] MEDS: PANTOPRAZOLE 40 MG 10ML VIAL IV SCH (05:49)
[2017-08-23] MEDS: PIPER-TAZ 3.375 GM 50 ML IV SCH ×3 (05:50→17:54)
[2017-08-23] MEDS: KETOROLAC TROMETHAMINE 30 MG/ML VIAL IV PRN ×2 (05:50→11:59)
[2017-08-23 09:07] VITALS: BP 132/64
[2017-08-23] MEDS: HYDROMORPHONE 1MG/1ML INJ IV PRN ×4 (09:40→20:59)
[2017-08-23] MEDS: ONDANSETRON HCL INJ 2 MG/ML VIAL IV PRN ×2 (09:40→14:53)
[2017-08-23] MEDS ORDERED: IOPAMIDOL 300MG/ML 50ML INFUS..BTL IV ONE (12:30)
[2017-08-23] MEDS ORDERED: INDOMETHACIN 50 MG SUPP.RECT RC ONE (12:58)
--- NOTE | 2017-08-23 14:07 | Operative Report ---
DATE OF PROCEDURE: August 23, 2017 REFERRING PHYSICIAN: Kim Sheffield MD PROCEDURE PERFORMED: Endoscopic retrograde cholangiopancreatography. INDICATIONS FOR PROCEDURE: Bile leak post lap ciarra. MEDICATION: Patient was done under MAC. Please see anesthesiologist's note. PROCEDURE: With the patient in the prone position, the flexible fiberoptic Olympus side-viewing scope was inserted into the esophagus and advanced all the way to the 2nd portion of the duodenum. The ampulla was identified. It appeared to be within normal limits. There was some bile noted. Despite being in the common bile duct position, the common bile duct could not be cannulated despite multiple attempts. The scope was subsequently withdrawn. Patient tolerated the procedure well. IMPRESSION 1. Ampulla within normal limits. 2. Common bile duct could not be cannulated despite multiple attempts. PLAN: As ordered. Job#: [id number] MH cc:ABDOUL SHEFFIELD MD
[2017-08-23] MEDS ORDERED: SODIUM CHLORIDE 0.9% 1000ML 1,000 ML ONE (14:13)
[2017-08-23 16:00] VITALS: BP 127/74
[2017-08-23 16:45] VITALS: BP 127/74
[2017-08-23] MEDS ORDERED: GLUCAGON FOR INJ 1 MG VIAL ONE (17:21)
[2017-08-23] MEDS ORDERED: PROPOFOL IV EMULSION 10 MG/ML 50 ML VIAL ONE (17:21)
[2017-08-23] MEDS ORDERED: LIDOCAINE HCL 2% LOCAL INJ 5 ML SDV VIAL INJ ONE ×2 (17:21→17:34)
[2017-08-23] MEDS ORDERED: ROCURONIUM BROMIDE 10 MG/ML 5ML VIAL ONE (17:34)
[2017-08-23] MEDS ORDERED: DEXAMETHASONE SOD PHOS INJ 4 MG/ML VIAL ONE (17:34)
[2017-08-23] MEDS ORDERED: SEVOFLURANE INHAL SOLN 250 ML PEN BTL ONE (17:34)
[2017-08-23] MEDS ORDERED: ONDANSETRON HCL INJ 2 MG/ML VIAL ONE (17:34)
[2017-08-23] MEDS ORDERED: LABETALOL HCL 5 MG/ML 20ML VIAL ONE (17:34)
[2017-08-23] MEDS ORDERED: SUCCINYLCHOLINE 200 MG/10 ML SYR ONE (17:34)
[2017-08-23] MEDS ORDERED: PROPOFOL IV EMULSION 10 MG/ML 20 ML VIAL ONE (17:34)
[2017-08-23] MEDS ORDERED: MIDAZOLAM HCL 2 MG/2 ML VIAL ONE ×2 (18:25→18:26)
[2017-08-23 20:00] VITALS: BP 151/72
[2017-08-24] VITALS (7 sets, daily range): BP systolic 112–134; BP diastolic 57–74
[2017-08-24] MEDS: PIPER-TAZ 3.375 GM 50 ML IV SCH ×4 (00:13→18:33)
[2017-08-24] MEDS: METRONIDAZOLE 500MG/NS 100ML 100 ML IV SCH ×4 (00:35→18:33)
[2017-08-24] MEDS: HYDROMORPHONE 1MG/1ML INJ IV PRN ×3 (02:17→21:40)
[2017-08-24] MEDS: DEXTROSE 5%/LACTATED RINGERS 1,000 ML IV SCH ×3 (03:00→18:33)
[2017-08-24] MEDS: PANTOPRAZOLE 40 MG 10ML VIAL IV SCH (05:39)
[2017-08-24] MEDS: KETOROLAC TROMETHAMINE 30 MG/ML VIAL IV PRN ×2 (06:26→17:16)
[2017-08-24 07:24] LABS: BASOPHILS # (AUTO) 0.1 (0.0-0.1); BASOPHILS % 0.5 % (0.0-1.0); EOSINOPHILS # (AUTO) 0.5 (0.0-0.4); EOSINOPHILS % 4.7 % (0.0-6.0); HEMATOCRIT 31.5 % (34.2-44.1); HEMOGLOBIN 10.3 g/dL (12.0-16.0); LYMPHOCYTES # (AUTO) 2.1 (1.0-3.2); LYMPHOCYTES % 21.2 % (18.0-39.1); MEAN CORPUSCULAR HEMOGLOBIN 30.8 pg (28-32); MEAN CORPUSCULAR HGB CONC 32.7 g/dL (31-35); MEAN CORPUSCULAR VOLUME 94.3 fL (81-99); MONOCYTES % 9.8 % (4.4-11.3); NEUTROPHILS # (AUTO) 6.4 (2.1-6.9); NEUTROPHILS % 63.2 % (38.7-80.0); PLATELET COUNT 278 x10e3/uL (140-360); RED BLOOD COUNT 3.34 x10e6/uL (3.6-5.1); RED CELL DISTRIBUTION WIDTH 12.6 % (11.7-14.4)
[2017-08-24 07:55] LABS: ALANINE AMINOTRANSFERASE 92 IU/L (0-55); ALBUMIN 2.6 g/dL (3.5-5.0); ALKALINE PHOSPHATASE 106 IU/L (40-150); AMYLASE 21 U/L (25-125); ANION GAP 9.7 mmol/L (8-16); BLOOD UREA NITROGEN 10 mg/dL (7-26); BUN/CREATININE RATIO 16 (6-25); CALCIUM 8.6 mg/dL (8.4-10.2); CARBON DIOXIDE 26 mmol/L (22-29); CHLORIDE 110 mmol/L (98-107); CREATININE, SERUM 0.64 mg/dL (0.57-1.11); EST GLOMERULAR FILTRATION RATE > 60 ML/MIN (60-); GLUCOSE 94 mg/dL (74-118); POTASSIUM 3.7 mmol/L (3.5-5.1); SODIUM 142 mmol/L (136-145)
[2017-08-24] MEDS: ONDANSETRON HCL INJ 2 MG/ML VIAL IV PRN (21:40)
[2017-08-25] VITALS: BP 123/70
[2017-08-25] MEDS: METRONIDAZOLE 500MG/NS 100ML 100 ML IV SCH ×4 (00:46→18:33)
[2017-08-25] MEDS: PIPER-TAZ 3.375 GM 50 ML IV SCH ×4 (01:00→18:33)
[2017-08-25] MEDS: KETOROLAC TROMETHAMINE 30 MG/ML VIAL IV PRN ×2 (02:30→09:05)
[2017-08-25] MEDS: DEXTROSE 5%/LACTATED RINGERS 1,000 ML IV SCH ×2 (02:51→11:00)
[2017-08-25 04:00] VITALS: BP 130/64
[2017-08-25] MEDS: PANTOPRAZOLE 40 MG 10ML VIAL IV SCH (06:37)
[2017-08-25 07:03] LABS: BASOPHILS # (AUTO) 0.1 (0.0-0.1); BASOPHILS % 0.8 % (0.0-1.0); EOSINOPHILS # (AUTO) 0.4 (0.0-0.4); EOSINOPHILS % 6.3 % (0.0-6.0); HEMATOCRIT 28.8 % (34.2-44.1); HEMOGLOBIN 9.6 g/dL (12.0-16.0); LYMPHOCYTES # (AUTO) 1.7 (1.0-3.2); LYMPHOCYTES % 26.2 % (18.0-39.1); MEAN CORPUSCULAR HEMOGLOBIN 31.1 pg (28-32); MEAN CORPUSCULAR HGB CONC 33.3 g/dL (31-35); MEAN CORPUSCULAR VOLUME 93.2 fL (81-99); MONOCYTES # (AUTO) 0.6 (0.2-0.8); MONOCYTES % 8.4 % (4.4-11.3); NEUTROPHILS # (AUTO) 3.8 (2.1-6.9); NEUTROPHILS % 57.8 % (38.7-80.0); PLATELET COUNT 288 x10e3/uL (140-360); RED BLOOD COUNT 3.09 x10e6/uL (3.6-5.1); RED CELL DISTRIBUTION WIDTH 12.3 % (11.7-14.4)
[2017-08-25 07:22] LABS: ALANINE AMINOTRANSFERASE 60 IU/L (0-55); ALBUMIN 2.4 g/dL (3.5-5.0); ALKALINE PHOSPHATASE 96 IU/L (40-150); AMYLASE 21 U/L (25-125); ANION GAP 7.9 mmol/L (8-16); BLOOD UREA NITROGEN 12 mg/dL (7-26); BUN/CREATININE RATIO 19 (6-25); CALCIUM 8.5 mg/dL (8.4-10.2); CARBON DIOXIDE 26 mmol/L (22-29); CHLORIDE 109 mmol/L (98-107); CREATININE, SERUM 0.63 mg/dL (0.57-1.11); EST GLOMERULAR FILTRATION RATE > 60 ML/MIN (60-); GLUCOSE 98 mg/dL (74-118); POTASSIUM 3.9 mmol/L (3.5-5.1); SODIUM 139 mmol/L (136-145)
[2017-08-25] MEDS: ONDANSETRON HCL INJ 2 MG/ML VIAL IV PRN (09:05)
[2017-08-25 09:19] VITALS: BP 141/70
[2017-08-25 13:31] VITALS: BP 158/77
[2017-08-25 20:00] VITALS: BP 160/81
[2017-08-26] VITALS: BP 160/81
[2017-08-26] MEDS: METRONIDAZOLE 500MG/NS 100ML 100 ML IV SCH ×4 (00:25→17:34)
[2017-08-26] MEDS: KETOROLAC TROMETHAMINE 30 MG/ML VIAL IV PRN (00:35)
[2017-08-26] MEDS: PIPER-TAZ 3.375 GM 50 ML IV SCH ×4 (01:58→17:34)
[2017-08-26 03:13] VITALS: BP 145/68
[2017-08-26 04:00] VITALS: BP 139/66
[2017-08-26] MEDS: PANTOPRAZOLE 40 MG 10ML VIAL IV SCH (05:59)
[2017-08-26 07:14] LABS: BASOPHILS # (AUTO) 0.1 (0.0-0.1); BASOPHILS % 0.9 % (0.0-1.0); EOSINOPHILS # (AUTO) 0.3 (0.0-0.4); HEMATOCRIT 29.2 % (34.2-44.1); HEMOGLOBIN 9.8 g/dL (12.0-16.0); LYMPHOCYTES # (AUTO) 1.6 (1.0-3.2); LYMPHOCYTES % 27.4 % (18.0-39.1); MEAN CORPUSCULAR HEMOGLOBIN 30.8 pg (28-32); MEAN CORPUSCULAR HGB CONC 33.6 g/dL (31-35); MEAN CORPUSCULAR VOLUME 91.8 fL (81-99); MONOCYTES # (AUTO) 0.6 (0.2-0.8); MONOCYTES % 9.6 % (4.4-11.3); NEUTROPHILS # (AUTO) 3.3 (2.1-6.9); NEUTROPHILS % 56.9 % (38.7-80.0); PLATELET COUNT 336 x10e3/uL (140-360); RED BLOOD COUNT 3.18 x10e6/uL (3.6-5.1); RED CELL DISTRIBUTION WIDTH 12.1 % (11.7-14.4)
[2017-08-26 07:30] LABS: ALANINE AMINOTRANSFERASE 48 IU/L (0-55); ALBUMIN 2.5 g/dL (3.5-5.0); ALKALINE PHOSPHATASE 99 IU/L (40-150); AMYLASE 23 U/L (25-125); ANION GAP 9.7 mmol/L (8-16); BLOOD UREA NITROGEN 11 mg/dL (7-26); BUN/CREATININE RATIO 16 (6-25); CALCIUM 8.7 mg/dL (8.4-10.2); CARBON DIOXIDE 25 mmol/L (22-29); CHLORIDE 108 mmol/L (98-107); CREATININE, SERUM 0.68 mg/dL (0.57-1.11); EST GLOMERULAR FILTRATION RATE > 60 ML/MIN (60-); GLUCOSE 100 mg/dL (74-118); POTASSIUM 3.7 mmol/L (3.5-5.1); SODIUM 139 mmol/L (136-145)
[2017-08-26 07:53] VITALS: BP 150/66
--- NOTE | 2017-08-26 13:35 | Discharge Summary ---
DISCHARGE DIAGNOSIS: Accessory duct bile leak with peritonitis. PROCEDURE PERFORMED DURING THIS HOSPITALIZATION 1. On August 23, 2017, diagnostic laparoscopy, laparoscopic ligation of gallbladder fossa bile leak, peritoneal lavage and drainage of gallbladder fossa by Dr. Nestor Sheffield. 2. On August 23, 2017, attempted cannulation of the common bile duct for stent placement by Dr. Kelsi Sorenson. HISTORY OF PRESENT ILLNESS AND HOSPITAL COURSE: The patient is a 37-year-old female with at least 11-year history of right upper quadrant pain radiating to the back, associated with fatty food intolerance. The patient was diagnosed with gallstone disease several years ago while living in [place]. At that time, she was advised surgery but because of personal reasons she was not able to proceed. The patient was seen by me in the office as an outpatient.Past medical history was unremarkable.Past surgical historry three C sections .She underwent urgently an ultrasound of the gallbladder that revealed gallstones. Liver chemistries were normal. There was no history of jaundice. She was then taken to the operating room on August 16, 2017, and underwent laparoscopic cholecystectomy. Findings were several large stones, evidence of chronic cholecystitis with gallbladder wall thickening and some inflammatory changes around the gallbladder. Patient was discharged home as an outpatient the day of the procedure, and she did well until August 19 when she developed sudden onset of upper abdominal pain again. It was severe. She then presented to the emergency room, where she had a CT scan of the abdomen that revealed changes consistent with the recent laparoscopic cholecystectomy. She had some elevation of the liver enzymes with ALT of 394, alk phosphatase of 170 and a normal bilirubin. The patient underwent a cholangio MRCP subsequent to that admission that revealed no gallstones, no choledocholithiasis. The patient's liver chemistries trended down. She insisted on going home and was then subsequently discharged home to be followed up as an outpatient. Dr. Kelsi Sorenson was consulted, saw the patient and was planning to follow her up as an outpatient for the possibility of having to perform an ERCP in the event that she had a retained stone. Twelve hours after that discharge, she returned back to the emergency room. At that time, she underwent a repeat CT scan of the abdomen and pelvis that revealed increasing fluid in the fossa and gutter consistent with a bile leak. The patient then on August 23, 2017, underwent a diagnostic laparoscopy, laparoscopic suture-ligation of a gallbladder bed fossa accessory duct and peritoneal irrigation with drainage of the abdominal cavity in the right upper quadrant. Postoperatively she did well. Her pain resolved. She had a Henry-Phoenix drain that never drained any bilious fluid. All of her output was serosanguineous and then more recently serous. Her liver chemistries normalized postoperatively with normal liver function tests on August 26, 2017, normal amylase and lipase, and white count was normal. The patient the day following the laparoscopy underwent ERCP and attempted common bile duct stenting, but the ampulla could not be canalized. This was performed by Dr. Kelsi Sorenson. The patient postoperatively was kept n.p.o., then her diet advanced. She was given intravenous antibiotics. Her pain resolved completely by the time of discharge. The Henry-Phoenix drain was draining serous fluid. The patient is going to be discharged home to be followed up as an outpatient. She will be referred to a tertiary care facility with Dr. Madsen for followup ERCP and possibly stenting of the common bile duct due to the accessory bile duct leak. She was discharged home on Levaquin 500 mg p.o. daily for a week. She was instructed to resume her Tylenol No. 3 as needed for pain. The patient was given instructions, and she agreed to follow up as an outpatient with Dr. Madsen and with us in the office next week for removal of the Henry-Phoenix drain. ABDOUL SHEFFIELD MD Job#: [id number] EV cc: KELSI SORENSON MD [facility]
[2017-08-26 20:00] VITALS: BP 152/74
[2017-08-27] VITALS: BP 149/76
[2017-08-27] MEDS: KETOROLAC TROMETHAMINE 30 MG/ML VIAL IV PRN (02:25)
[2017-08-27] MEDS: METRONIDAZOLE 500MG/NS 100ML 100 ML IV SCH ×2 (02:25→05:40)
[2017-08-27] MEDS: PIPER-TAZ 3.375 GM 50 ML IV SCH ×2 (03:25→06:47)
[2017-08-27 04:00] VITALS: BP 149/71
[2017-08-27] MEDS: PANTOPRAZOLE 40 MG 10ML VIAL IV SCH (05:40)
[2017-08-27 08:00] VITALS: BP 164/76
[2017-08-27 08:03] VITALS: BP 164/76
[2017-08-27 11:30] VITALS: BP 168/79
== END 2017-08-27 12:17 | disposition home or self-care (01) | DRG 862 ==
LOC: ER 04:50 → ERHOLD 08:43 → MED/SURG 08:45
PROVIDERS: ADMIT Surgery; ATTEND Surgery
PROC: 0W9G40Z Drainage of Peritoneal Cavity with Drainage Device, Percutaneous Endoscopic Approach (ICD-10-PCS; 2017-08-23)
PROC: 0F798ZZ Dilation of Common Bile Duct, Via Natural or Artificial Opening Endoscopic (ICD-10-PCS; 2017-08-23)
PROC: BF101ZZ Fluoroscopy of Bile Ducts using Low Osmolar Contrast (ICD-10-PCS; 2017-08-23)
PROC: 0FL Hepatobiliary System and Pancreas, Occlusion (ICD-10-PCS; principal; 2017-08-23 01:00)
DX: K68.11 Postprocedural retroperitoneal abscess (principal); K65.3 Choleperitonitis; Z90.49 Acquired absence of other specified parts of digestive tract
CPT/HCPCS: 36415; 74177; 80053; 81001; 82150; 82550; 82553; 83690; 83735; 84484; 85025; 85610; 85730; 87040; 87071; 87075; 87086; 87205; 96360; 96361; 99284; C1766; J1100; J1170; J1610; J1885; J2001; J2250; J2405; J2543; J7030; J7120; Q9967

== ENCOUNTER 2017-10-03 12:56 | Emergency (ER) | payer OTHER ==
[~2017-10-03] VITALS: Ht 160 cm; Wt 90.7 kg
[~2017-10-03 12:56] MED LIST changes: +TYLENOL # 31 EA PO
--- OUTSIDE RECORDS SUMMARY | 2017-10-03 12:59 | XMS REPORT | Clinical Summary ---
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 Latex 09/27/2017 Burned skin. Current Medications Prescription Sig. Disp. Refills Start End Date Status Date escitalopram oxalate Take 10 mg by mouth Active (LEXAPRO) 10 MG tablet nightly. Active Problems Not on file Encounters Date Type Specialty Care Team Description 09/28/2017 Hospital Gastroenterology Shayna Lin MD Encounter 09/28/2017 Procedure Pass Gastroenterology 09/28/2017 Surgery Gastroenterology Shayna Lin MD ERCP, PAPILLOTOMY 09/27/2017 Hospital Pre-Admission Testing Encounter 09/27/2017 Anesthesia Gastroenterology Kali Ch MD Event after 10/02/2016 Social History Tobacco Use Types Packs/Day Years Used Date Current Every Day Smoker 0.5 25 Smokeless Tobacco: Never Used Tobacco Cessation: Ready to Quit: No Comments: to be given on day of procedure. Alcohol Use Drinks/Week oz/Week Comments Yes occasionally Sex Assigned at Date Recorded Not on file Last Filed Vital Signs Vital Sign Reading Time Taken Blood Pressure 111/66 09/28/2017 5:35 PM CDT Pulse 69 09/28/2017 5:35 PM CDT Temperature 36.8 C (98.2 F) 09/28/2017 5:35 PM CDT Respiratory Rate 15 09/28/2017 5:35 PM CDT Oxygen Saturation 95% 09/28/2017 5:35 PM CDT Inhaled Oxygen - - Concentration Weight 89.1 kg (196 lb 6.4 oz) 09/28/2017 11:47 AM CDT Height 160 cm (5' 3") 09/28/2017 11:47 AM CDT Body Mass Index 34.79 09/28/2017 11:47 AM CDT Plan of Treatment Not on file Implants Implanted Type Area Manager Medical Affairs Device Expiration Model / Identifier Date Serial / Lot Stent Bili Duodenal [id number] Stents-Per [employer] 2019 3433 / - [id number] ipheral [id number] Implanted: Qty: 1 on 09/28/2017 by [id number] / Shayna Lin MD [id number] Advanix Pancreatic Stent [employer] 10/30/2018 [id number] Implanted: Qty: 1 on 09/28/2017 by / Shayna Lin MD / [id number] Procedures Procedure Name Priority Date/Time Associated Diagnosis Comments ERCP,PANCREATIC STENT 09/28/2017 Bile leak 1:30 PM CDT Special Needs (C-ARM) ERCP,BILIARY STENT 09/28/2017 Bile leak 1:30 PM CDT Special Needs (C-ARM) PROCEDURE W/ C-ARM 09/28/2017 Bile leak 1:30 PM CDT Special Needs (C-ARM) ERCP,PAPILLOTOMY 09/28/2017 Bile leak 1:30 PM CDT Special Needs (C-ARM) after 10/02/2016 Results * REPORT OF PROCEDURE - ENDOSCOPY URL (09/28/2017 4:45 PM) * [place] ERCP (09/28/2017 4:17 PM) Specimen Performing Laboratory GE RIS Narrative FINAL REPORT ERCP 8 views 09/28/2017 at 1624 CLINICAL HISTORY: Instrument localization COMPARISON: None available IMPRESSION: Please correlate imaging report findings with the procedure note prepared by Dr. Lin, as an intra-procedure imaging consultation was not requested. Reported fluoroscopy time: 1 minute, 39 seconds. Signed: oCrey Lora MD Report Verified Date/Time:09/29/2017 07:52:59 Reading Location: [facility] Radiology Reading Room Procedure Note Interface, External Ris In - 09/29/2017 7:55 AM CDT FINAL REPORT ERCP 8 views 09/28/2017 at 1624 CLINICAL HISTORY: Instrument localization COMPARISON: None available IMPRESSION: Please correlate imaging report findings with the procedure note prepared by Dr. Lin, as an intra-procedure imaging consultation was not requested. Reported fluoroscopy time: 1 minute, 39 seconds. Signed: Corey Lora MD Report Verified Date/Time: 09/29/2017 07:52:59 Reading Location: [facility] Radiology Reading Room * POCT , urine (09/28/2017 11:41 AM) Component Value Ref Range Test Urine, POC Negative Control line present?, Yes POC Background clear?, POC Yes UPT Cassette Lot #, POC [id number] UPT Cassette Expiration 05/23/2019 Date, POC after 10/02/2016
--- OUTSIDE RECORDS SUMMARY | 2017-10-03 12:59 | XMS REPORT | Continuity of Care Document ---
Author Author [facility] Organization [facility] Address [address] [place] [address] Phone Unavailable Care Team Providers Care Patternmaker Pressure Cast Name Role Phone JANICE ELIANE PCP Insurance Providers Guarantor AmmyrgmichelleDarío Address [address] [place] [address] Email [email or web address] Payer A[employer] Hmo Policy Number [id number] Subscriber's Name GangaanikaDarío nuñez Lesley Relationship 18 Self / Same As Patient Group Number [id number] Group Name RAMEZ Effective Date 17 Advance Directives Directive Response Recorded Date/Time Does the patient have an advance directive? No 08/22/17 10:36am If yes, is advance directive on file with [facility]? No 08/19/17 10:41pm If not on file with [facility] will patient provide a copy? No 08/19/17 10:41pm Do you have a Directive to Physician? No 08/22/17 4:48am Do you have a Medical Power of Regenerator Operator? No 08/22/17 4:48am Do you have an out of hospital Do Not Resuscitate Order? No 08/22/17 4:48am Do you have any special needs we should be aware of? No 08/22/17 4:48am Do you have a support person here with you today? Yes 08/22/17 4:48am Did patient receive Notice of Privacy Practices? Yes 08/22/17 4:48am Did patient receive patient rights and responsibilities? Yes 08/22/17 4:48am Problems Medical Problem Onset Date Status Abdominal pain Unknown Common bile duct stone Unknown Leukocytosis Unknown Post-op pain Unknown Medications Current Home Medications Medication Dose Units Route Directions Days Qty Instructions Start Date Acetaminophen/Codeine Phosphate (Tylenol # 3*) 1 Ea Tab 1 Oral Every 6 Hours as needed for Abdominal Pain Escitalopram Oxalate (Lexapro) 10 Mg Tablet 10 Mg Oral Daily 30 Tab Past Home Medications Medication Directions Ordered Status Dicyclomine Hcl (Bentyl) 10 Mg/1 Ml Ampul, 10 Mg Intraven Four Times Daily Discontinued Levofloxacin (Levaquin) 500 Mg Tablet, 500 Mg Oral Daily Discontinued Social History Social History Problem Response Recorded Date/Time Onset Date Status Hx Psychiatric Problems No 08/22/2017 10:36am Not Applicable Not Applicable Hx Eating Disorder No 08/22/2017 10:36am Not Applicable Not Applicable Hx Substance Use Disorder No 08/19/2017 10:41pm Not Applicable Not Applicable Hx Depression No 08/22/2017 10:36am Not Applicable Not Applicable Hx Alcohol Use Y - OCCASIONAL 08/22/2017 10:36am Not Applicable Not Applicable Hx Substance Use Treatment No 08/22/2017 10:36am Not Applicable Not Applicable Hx Physical Abuse No 08/22/2017 10:36am Not Applicable Not Applicable Smoking Status Start Date Stop Date Current every day smoker Hospital Discharge Instructions No hospital discharge instruction information available. Plan of Care Discharge Date 08/27/17 12:17pm Disposition HOME, SELF-CARE Instructions/Education Provided Abdominal Pain - Adult Prescriptions See Medication Section Additional Instructions/Education NO HEAVY LIFTING OVER 10LBS, KEEP THE INCISION SITE CLEAN AND DRY. JORGE DRAIN TO STAY, MD WILL REMOVE THE DRAIN ON WEDNESDAY. FOLLOW UP WITH DR Brook SORENSON [phone] FOR APPOINTMENT AT THE [facility]. FOLLOW UP WITH DR Kim SHEFFIELD ON WEDNESDAY [phone]. NOTIFY THE DOCTOR OF TEMPERATURE GREATER THAN 101, SEVERE ABDOMINAL PAIN NOT RELIEF BY YOUR PAIN MEDICATION AND EXCESSIVE DRAINAGE FROM THE INCISION SITE. Functional Status Query Response Date Recorded Assistive Devices None August 22, 2017 10:10am Ambulation Ability Moderate Assistance August 22, 2017 10:10am Toileting Ability Standby Assistance August 22, 2017 10:10am Allergies, Adverse Reactions, Alerts No known allergies. Immunizations No immunization information available. Vital Signs Acute Vital Signs Vital Response Date/Time Temperature (Fahrenheit) 97.4 degrees F (97.6 - 99.5) 08/27/2017 8:03am Pulse Pulse Rate (adult) 64 bpm (60 - 90) 08/27/2017 8:03am Respiratory Rate 16 bpm (12 - 24) 08/27/2017 8:03am Blood Pressure 164/76 mm Hg 08/27/2017 8:03am Height 5 ft 3 in 08/22/2017 10:36am Weight 204 lb 08/22/2017 10:36am Body Mass Index 36.1 kg/m^2 08/22/2017 10:36am Results Laboratory Results Test Name Result Units Flags Reference Collection Date/Time Result Date/ Time Comments Urine Test NEGATIVE NEGATIVE 08/19/2017 4:00pm 08/19/2017 4 :30pm Lactic Acid Level 10.0 MG/DL 4.5-19.8 08/19/2017 4:20pm 08/19/2017 5: 15pm White Blood Count 5.83 x10e3/uL 4.8-10.8 08/26/2017 6:50am 08/26/2017 7 :14am Red Blood Count 3.18 x10e6/uL L 3.6-5.1 08/26/2017 6:50am 08/26/2017 7: 14am Hemoglobin 9.8 g/dL L 12.0-16.0 08/26/2017 6:50am 08/26/2017 7:14am Hematocrit 29.2 % L 34.2-44.1 08/26/2017 6:50am 08/26/2017 7:14am Mean Corpuscular Volume 91.8 fL 81-99 08/26/2017 6:50am 08/26/2017 7: 14am Mean Corpuscular Hemoglobin 30.8 pg 28-32 08/26/2017 6:50am 08/26/2017 7:14am Mean Corpuscular Hemoglobin Concent 33.6 g/dL 31-35 08/26/2017 6:50am 08/26/2017 7:14am Red Cell Distribution Width 12.1 % 11.7-14.4 08/26/2017 6:50am 2017 7:14am Platelet Count 336 x10e3/uL 140-360 08/26/2017 6:50am 08/26/2017 7: 14am Neutrophils (%) (Auto) 56.9 % 38.7-80.0 08/26/2017 6:50am 08/26/2017 7: 14am Lymphocytes (%) (Auto) 27.4 % 18.0-39.1 08/26/2017 6:50am 08/26/2017 7: 14am Monocytes (%) (Auto) 9.6 % 4.4-11.3 08/26/2017 6:50am 08/26/2017 7: 14am Eosinophils (%) (Auto) 5.0 % 0.0-6.0 08/26/2017 6:50am 08/26/2017 7: 14am Basophils (%) (Auto) 0.9 % 0.0-1.0 08/26/2017 6:50am 08/26/2017 7:14am IM GRANULOCYTES % 0.2 % 0.0-1.0 08/26/2017 6:50am 08/26/2017 7:14am Neutrophils # (Auto) 3.3 2.1-6.9 08/26/2017 6:50am 08/26/2017 7:14am Lymphocytes # (Auto) 1.6 1.0-3.2 08/26/2017 6:50am 08/26/2017 7:14am Monocytes # (Auto) 0.6 0.2-0.8 08/26/2017 6:50am 08/26/2017 7:14am Eosinophils # (Auto) 0.3 0.0-0.4 08/26/2017 6:50am 08/26/2017 7:14am Basophils # (Auto) 0.1 0.0-0.1 08/26/2017 6:50am 08/26/2017 7:14am Absolute Immature Granulocyte (auto 0.01 x10e3/uL 0-0.1 08/26/2017 6: 50am 08/26/2017 7:14am Prothrombin Time 12.3 seconds 11.9-14.5 08/22/2017 5:00am 08/22/2017 6: 42am Prothromb Time International Ratio 0.99 08/22/2017 5:00am 2017 6:42am Oral Anticoagulant Therapy INR Values: 1. Low Intensity Therapy 1.5 - 2.0 2. Moderate Intensity Therapy 2.0 - 3.0 3. High Intensity Therapy(1) 2.5 - 3.5 4. High Intensity Therapy(2) 3.0 - 4.0 5. Panic Value INR > 5.0 Activated Partial Thromboplast Time 31.9 seconds 23.8-35.5 08/22/2017 5: 00am 08/22/2017 6:42am Urine Color KB YELLOW 08/22/2017 7:08/22/2017 7:33am Urine Clarity HAZY CLEAR 08/22/2017 7:08/22/2017 7:33am Urine Specific [place] 1.020 1.010-1.025 08/22/2017 7:2017 7:33am Urine pH 7 5 - 7 08/22/2017 7:08/22/2017 7:33am Urine Leukocyte Esterase NEGATIVE NEGATIVE 08/22/2017 7:2017 7:33am Urine Nitrite NEGATIVE NEGATIVE 08/22/2017 7:08/22/2017 7:33am Urine Protein NEGATIVE NEGATIVE 08/22/2017 7:08/22/2017 7:33am Urine Glucose (UA) NEGATIVE NEGATIVE 08/22/2017 7:08/22/2017 7: 33am Urine Ketones NEGATIVE NEGATIVE 08/22/2017 7:08/22/2017 7:33am Urine Urobilinogen 0.2 mg/dL 0.2 - 1 08/22/2017 7:11a08/22/2017 7: 33am Urine Bilirubin NEGATIVE NEGATIVE 08/22/2017 7:08/22/2017 7: 33am Urine Blood TRACE H NEGATIVE 08/22/2017 7:08/22/2017 7:33am Urine WBC 0-5 /HPF 0-5 08/22/2017 7:11a08/22/2017 7:45am Urine RBC 0-5 /HPF 0-5 08/22/2017 7:08/22/2017 7:45am Urine Bacteria MODERATE /HPF H NONE 08/22/2017 7:11a08/22/2017 7:45am Urine Epithelial Cells MANY /LPF NONE 08/22/2017 7:08/22/2017 7: 45am Sodium Level 139 mmol/L 136-145 08/26/2017 6:50am 08/26/2017 7:31am Potassium Level 3.7 mmol/L 3.5-5.1 08/26/2017 6:50am 08/26/2017 7:31am Chloride Level 108 mmol/L H 98-107 08/26/2017 6:50am 08/26/2017 7:31am Carbon Dioxide Level 25 mmol/L 22-29 08/26/2017 6:50am 08/26/2017 7: 31am Anion Gap 9.7 mmol/L 8-16 08/26/2017 6:50am 08/26/2017 7:31am Blood Urea Nitrogen 11 mg/dL 7-26 08/26/2017 6:50am 08/26/2017 7:31am Creatinine 0.68 mg/dL 0.57-1.11 08/26/2017 6:50am 08/26/2017 7:31am BUN/Creatinine Ratio 16 6-25 08/26/2017 6:50am 08/26/2017 7:31am Estimat Glomerular Filtration Rate > 60 ML/MIN 60- 08/26/2017 6:50am 7:31am Ranges were taken from the National Kidney Disease Education Program and the National Kidney Foundation literature. Reference ranges: 60 or greater: Normal 16-59 (for 3 consecutive months): Chronic kidney disease 15 or less: Kidney failure Glucose Level 100 mg/dL 74-118 08/26/2017 6:50am 08/26/2017 7:31am Calcium Level 8.7 mg/dL 8.4-10.2 08/26/2017 6:50am 08/26/2017 7:31am Magnesium Level 1.9 MG/DL 1.3-2.1 08/22/2017 5:00am 08/22/2017 7:12am Total Bilirubin 0.5 mg/dL 0.2-1.2 08/26/2017 6:50am 08/26/2017 7:31am Aspartate Amino Transf (AST/SGOT) 10 IU/L 5-34 08/26/2017 6:50am 2017 7:31am Alanine Aminotransferase (ALT/SGPT) 48 IU/L 0-55 08/26/2017 6:50am 09/2017 7:31am Total Protein 4.9 g/dL L 6.5-8.1 08/26/2017 6:50am 08/26/2017 7:31am Albumin 2.5 g/dL L 3.5-5.0 08/26/2017 6:50am 08/26/2017 7:31am Globulin 2.4 g/dL 2.3-3.5 08/26/2017 6:50am 08/26/2017 7:31am Albumin/Globulin Ratio 1.0 0.8-2.0 08/26/2017 6:50am 08/26/2017 7: 31am Alkaline Phosphatase 99 IU/L 40-150 08/26/2017 6:50am 08/26/2017 7: 31am Creatine Kinase 32 IU/L 29-168 08/22/2017 5:00am 08/22/2017 7:12am Creatine Kinase MB 0.40 ng/mL 0-5.0 08/22/2017 5:00am 08/22/2017 7: 12am Troponin I < 0.001 ng/mL 0-0.300 08/22/2017 5:00am 08/22/2017 7:12am Amylase Level 23 U/L L 25-125 08/26/2017 6:50am 08/26/2017 7:31am Lipase 38 U/L 8-78 08/22/2017 5:00am 08/22/2017 7:12am Microbiology Results Procedure Source Organism/Result Collection Date/Time Result Date/Time Result Status Blood Culture Blood NO GROWTH AFTER 5 DAYS, FINAL REPORT 08/22/2017 8:00am 08/27/2017 9:19am Final [place] [id number] Patient Name: DARÍO GRAYSON MR # :[id number] : 1980 Age/Sex: 37/F Admit Physician: ABDOUL SHEFFIELD MD Admit Date: 08/22/17 Location/Room/Bed: [facility]/SURG- 110-1 Discharge Date: Report: Discharge Summary DISCHARGE DIAGNOSIS: Accessory duct bile leak with peritonitis. PROCEDURE PERFORMED DURING THIS HOSPITALIZATION 1. On August 23, 2017, diagnostic laparoscopy, laparoscopic ligation of gallbladder fossa bile leak, peritoneal lavage and drainage of gallbladder fossa by Dr. Gil Sheffield. 2. On August 23, 2017, attempted cannulation of the common bile duct for stent placement by Dr. Kelsi Sorenson. HISTORY OF PRESENT ILLNESS AND HOSPITAL COURSE: The patient is a 37-year-old female with at least 11-year history of right upper quadrant pain radiating to the back, associated with fatty food intolerance. The patient was diagnosed with gallstone disease several years ago while living in [place]. At that time, she was advised surgery but because of personal reasons she was not able to proceed. The patient was seen by me in the office as an outpatient.Past medical history was unremarkable.Past surgical historry three C sections .She underwent urgently an ultrasound of the gallbladder that revealed gallstones. Liver chemistries were normal. There was no history of jaundice. She was then taken to the operating room on August 16, 2017, and underwent laparoscopic cholecystectomy. Findings were several large stones, evidence of chronic cholecystitis with gallbladder wall thickening and some inflammatory changes around the gallbladder. Patient was discharged home as an outpatient the day of the procedure, and she did well until August 19 when she developed sudden onset of upper abdominal pain again. It was severe. She then presented to the emergency room, where she had a CT scan of the abdomen that revealed changes consistent with the recent laparoscopic cholecystectomy. She had some elevation of the liver enzymes with ALT of 394, alk phosphatase of 170 and a normal bilirubin. The patient underwent a cholangio MRCP subsequent to that admission that revealed no gallstones, no choledocholithiasis. The patient's liver chemistries trended down. She insisted on going home and was then subsequently discharged home to be followed up as an outpatient. Dr. Kelsi Sorenson was consulted, saw the patient and was planning to follow her up as an outpatient for the possibility of having to perform an ERCP in the event that she had a retained stone. Twelve hours after that discharge, she returned back to the emergency room. At that time, she underwent a repeat CT scan of the abdomen and pelvis that revealed increasing fluid in the fossa and gutter consistent with a bile leak. The patient then on August 23, 2017, underwent a diagnostic laparoscopy, laparoscopic suture-ligation of a gallbladder bed fossa accessory duct and peritoneal irrigation with drainage of the abdominal cavity in the right upper quadrant. Postoperatively she did well. Her pain resolved. She had a Henry-Phoenix drain that never drained any bilious fluid. All of her output was serosanguineous and then more recently serous. Her liver chemistries normalized postoperatively with normal liver function tests on August 26, 2017, normal amylase and lipase, and white count was normal. The patient the day following the laparoscopy underwent ERCP and attempted common bile duct stenting, but the ampulla could not be canalized. This was performed by Dr. Kelsi Sorenson. The patient postoperatively was kept n.p.o., then her diet advanced. She was given intravenous antibiotics. Her pain resolved completely by the time of discharge. The Henry-Phoenix drain was draining serous fluid. The patient is going to be discharged home to be followed up as an outpatient. She will be referred to a tertiary care facility with Dr. Madsen for followup ERCP and possibly stenting of the common bile duct due to the accessory bile duct leak. She was discharged home on Levaquin 500 mg p.o. daily for a week. She was instructed to resume her Tylenol No. 3 as needed for pain. The patient was given instructions, and she agreed to follow up as an outpatient with Dr. Madsen and with us in the office next week for removal of the Henry-Phoenix drain. ABDOUL SHEFFIELD MD Job#: [id number] EV cc: KELSI SORENSON MD Dictated By: ABDOUL SHEFFIELD MD Transcribed By: [facility] on 08/26/17 <Electronically signed by ABDOUL SHEFFIELD MD>08/26/17 1610 Procedures Procedure Status Date Provider(s) LAPAROSCOPIC CHOLECYSTECTOMY Completed 08/16/17 ABDOUL SHEFFIELD MD Laparoscopic cholecystectomy Completed 08/23/17 GIL SHEFFIELD MD ERCP (endoscopic retrograde cholangiopancreatography) Completed 08/23/17 KELSI SORENSON MD US gallbladder Active 08/13/17 ABDOUL SHEFFIELD MD Computed tomography of abdomen and pelvis with contrast Active 08/19/17 DESTINEE STEVENS MD Magnetic resonance cholangiopancreatography (MRCP) without contrast Active DESTINEE STEVENS MD Computed tomography of abdomen and pelvis with contrast Active 08/22/17 GIL SHEFFIELD MD Encounters Encounter Location Arrival/Admit Date Discharge/Depart Date Attending Provider Discharged [facility]patient [facility] 08/22/17 8:43am 08/27/17 12:17pm ABDOUL SHEFFIELD MD Discharged Inpatient [facility] 08/19/17 7:22pm 08/21/17 1:03pm ABDOUL SHEFFIELD MD Registered Surgical Day Care [facility] 08/16/17 8:13am ABDOUL SHEFFIELD MD Registered Clinic [facility] 08/13/17 12:25pm ABDOUL SHEFFIELD MD
[2017-10-03] MEDS ORDERED: SODIUM CHLORIDE 0.9% 1000ML 1,000 ML IV SCH ×2 (13:15→13:45)
[2017-10-03] MEDS ORDERED: ONDANSETRON HCL 4 MG ORAL DISINTEGRATING TAB PO ONE (13:30)
[2017-10-03 13:40] LABS: BASOPHILS % 0.4 % (0.0-1.0); EOSINOPHILS # (AUTO) 0.2 (0.0-0.4); EOSINOPHILS % 1.6 % (0.0-6.0); HEMATOCRIT 41.5 % (34.2-44.1); HEMOGLOBIN 14.2 g/dL (12.0-16.0); LYMPHOCYTES # (AUTO) 1.9 (1.0-3.2); LYMPHOCYTES % 20.4 % (18.0-39.1); MEAN CORPUSCULAR HEMOGLOBIN 30.8 pg (28-32); MEAN CORPUSCULAR HGB CONC 34.2 g/dL (31-35); MONOCYTES # (AUTO) 0.7 (0.2-0.8); MONOCYTES % 7.1 % (4.4-11.3); NEUTROPHILS # (AUTO) 6.6 (2.1-6.9); NEUTROPHILS % 70.3 % (38.7-80.0); PLATELET COUNT 327 x10e3/uL (140-360); RED BLOOD COUNT 4.61 x10e6/uL (3.6-5.1); RED CELL DISTRIBUTION WIDTH 12.9 % (11.7-14.4)
[2017-10-03 13:47] LABS: COLOR,URINE YELLOW (YELLOW)
[2017-10-03 13:48] LABS: BILIRUBIN,URINE NEGATIVE (NEGATIVE); CLARITY,URINE CLEAR (CLEAR); KETONES,URINE NEGATIVE (NEGATIVE); LEUKOCYTE ESTERASE ,URINE NEGATIVE (NEGATIVE); NITRITE,URINE NEGATIVE (NEGATIVE); PROTEIN,URINE DIPSTICK NEGATIVE (NEGATIVE); URINE UROBILINOGEN 0.2 mg/dL (0.2 - 1)
[2017-10-03 13:59] LABS: ALANINE AMINOTRANSFERASE 25 IU/L (0-55); ALBUMIN 3.8 g/dL (3.5-5.0); ALBUMIN/GLOBULIN RATIO 1.2 (0.8-2.0); ALKALINE PHOSPHATASE 73 IU/L (40-150); AMYLASE 26 U/L (25-125); ANION GAP 11.6 mmol/L (8-16); BLOOD UREA NITROGEN < 5 mg/dL (7-26); CARBON DIOXIDE 25 mmol/L (22-29); CHLORIDE 103 mmol/L (98-107); CREATININE, SERUM 0.67 mg/dL (0.57-1.11); EST GLOMERULAR FILTRATION RATE > 60 ML/MIN (60-); GLUCOSE 94 mg/dL (74-118); LIPASE 8 U/L (8-78); POTASSIUM 3.6 mmol/L (3.5-5.1); SODIUM 136 mmol/L (136-145)
[2017-10-03 14:00] LABS: BUN/CREATININE RATIO 7 (6-25)
[2017-10-03 14:00] LABS: EPITHELIAL CELLS,URINE FEW /LPF
--- NOTE | 2017-10-03 15:50 | Diagnostic Imaging Report ---
EXAM: CT Abdomen and Pelvis WITH contrast INDICATION: \S\abdominal pain, post ERCP with stents in pancreas. ERCP on 09/28/2017. Increasing abdominal pain for a few days. Cholecystectomy in August 2017. COMPARISON: CT abdomen and pelvis 08/22/2017. MRCP 08/20/2017. CT abdomen pelvis CT 10/02/2018. TECHNIQUE: Abdomen and pelvis were scanned utilizing a multidetector helical scanner from the lung base to the pubic symphysis after administration of IV contrast. Coronal and sagittal reformations were obtained. Routine protocol was performed. Scan was performed when during portal venous phase. IV CONTRAST: 100 mL of Isovue 370 ORAL CONTRAST: Water COMPLICATIONS: None RADIATION DOSE: Total DLP: 757.38 mGy*cm Estimated effective dose: (DLP x 0.015 x size factor) mSv CTDIvol has been reviewed. It is below the limits set by the Radiation Protocol Committee (RPC). FINDINGS: LINES and TUBES: Common bile duct stent and pancreatic duct stent are in place. LOWER THORAX: Unremarkable HEPATOBILIARY: No focal hepatic lesions. No biliary ductal dilation. Mild pneumobilia. GALLBLADDER: There are cholecystectomy clips. SPLEEN: No splenomegaly. PANCREAS: No focal masses or ductal dilatation. ADRENALS: No adrenal nodules KIDNEYS/URETERS: Kidneys enhance symmetrically. No hydronephrosis. No cystic or solid mass lesions. No stones. GI TRACT: No abnormal distention, wall thickening, or evidence of bowel obstruction. Appendix is normal. PELVIC ORGANS/BLADDER: Unremarkable. LYMPH NODES: No lymphadenopathy. VESSELS: Unremarkable. PERITONEUM / RETROPERITONEUM: Trace free fluid in the deep pelvis. Residual fluid/inflammatory changes around the pete hepatis. BONES: Unremarkable. SOFT TISSUES: Unremarkable. IMPRESSION: 1. Residual fluid/post operative changes around the pete hepatis. No acute abnormalities identified. 2. Cholecystectomy with common bile duct stent in pancreatic duct stent in place. Signed by: Dr. Luis Sosa M.D. on 10/03/2017 3:46 PM
[2017-10-03] MEDS ORDERED: MORPHINE SULFATE 4 MG/ML SYR IV STA (15:55)
[2017-10-03] MEDS ORDERED: ONDANSETRON HCL 4 MG ORAL DISINTEGRATING TAB SL NR (16:00)
[2017-10-03] MEDS ORDERED: MORPHINE SULFATE 2 MG/ML SYR IV NR (16:15)
[2017-10-03] MEDS ORDERED: SODIUM CHLORIDE 0.9% 50ML 50 ML ONE (17:09)
[2017-10-03] MEDS ORDERED: IOPAMIDOL 370 MG/ML 200 ML INFUS..BTL INJ ONE (17:10)
[2017-10-03 19:07] VITALS: BP 121/72
== END 2017-10-03 17:15 | disposition home or self-care (01) ==
LOC: ER 12:56
DX: R10.84 Generalized abdominal pain (principal); R11.0 Nausea; R19.7 Diarrhea, unspecified; F41.9 Anxiety disorder, unspecified
CPT/HCPCS: 36415; 74177; 80053; 81001; 81025; 82150; 83690; 85025; 99284; J2270; J7030; Q9967

== ENCOUNTER 2017-10-17 14:06 | Emergency (ER) | payer OTHER ==
[~2017-10-17] VITALS: Ht 160 cm; Wt 86.2 kg
--- OUTSIDE RECORDS SUMMARY | 2017-10-17 14:09 | XMS REPORT | Continuity of Care Document ---
Author Author [facility] Organization 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 No 08/22/17 10:36am If yes, is advance directive on file with [facility]? No 08/19/17 10:41pm If not on file with [facility] will patient provide a copy? No 08/19/17 10:41pm Do you have a Directive to Physician? No 10/03/17 1:40pm Do you have a Medical Power of Accountant Certified Public? No 10/03/17 1:40pm Do you have an out of hospital Do Not Resuscitate Order? No 10/03/17 1:40pm Do you have any special needs we should be aware of? No 10/03/17 1:40pm Do you have a support person here with you today? No 10/03/17 1:40pm Did patient receive Notice of Privacy Practices? Yes 10/03/17 1:40pm Did patient receive patient rights and responsibilities? Yes 10/03/17 1:40pm Problems Medical Problem Onset Date Status Abdominal [...] Applicable Smoking Status Start Date Stop Date Never Smoker Hospital Discharge Instructions No hospital discharge instruction information available. Plan of Care Discharge Date 10/03/17 5:15pm Disposition HOME, SELF-CARE Condition at Discharge Stable Instructions/Education Provided Abdominal Pain - Adult Forms Provided Work/School Excuse Prescriptions See Medication Section Referrals ELIANE CAMACHO DO Address: [address] [address] [place] [address] KELSI SORENSON MD Address: [address] [place] [address] [address] [place], [place] [id number] Additional Instructions/Education PLAN: 1) Discharged to home. 2) Follow up with Dr Sorenson on Wednesday10-04-18 for recheck. Please call in the morning to make the appointment. 3) Take Tylenol #3, 1-2 every 6 hours as needed for pain. 4) Take Zofran 8mg ODT every 8 hours as needed for nausea or vomiting. 5) Avoid excessive physical activity. 6) Return to the emergency room if you have worsening pain, fever over 101, vomiting, bloody stool or any other problems. Functional Status No functional status information available. Allergies, Adverse Reactions, Alerts No known allergies. Immunizations No immunization information available. Vital Signs Acute Vital Signs Vital Response Date/Time Temperature (Fahrenheit) 98.1 degrees F (97.6 - 99.5) 08/27/2017 11:30am Pulse Pulse Rate (adult) 74 bpm (60 - 90) 10/03/2017 7:07pm Respiratory Rate 20 bpm (12 - 24) 10/03/2017 7:07pm Blood Pressure 121/72 mm Hg 10/03/2017 7:07pm Height 5 ft 3 in 10/03/2017 1:07pm Weight 200 lb 10/03/2017 1:07pm Body Mass Index 35.4 kg/m^2 10/03/2017 1:07pm Results Laboratory Results Test Name Result Units Flags Reference Collection Date/Time Result Date/ Time Comments Lactic Acid Level 10.0 MG/DL 4.5-19.8 08/19/2017 4:20pm 08/19/2017 5: 15pm Prothrombin Time 12.3 seconds 11.9-14.5 08/22/2017 5:00am [...] seconds 23.8-35.5 08/22/2017 5: 00am 08/22/2017 6:42am Magnesium Level 1.9 MG/DL 1.3-2.1 08/22/2017 5:00am 08/22/2017 7:12am Creatine Kinase 32 IU/L 29-168 08/22/2017 5:00am 08/22/2017 7:12am Creatine Kinase MB 0.40 ng/mL 0-5.0 08/22/2017 5:00am 08/22/2017 7: 12am Troponin I < 0.001 ng/mL 0-0.300 08/22/2017 5:00am 08/22/2017 7:12am White Blood Count 9.34 x10e3/uL 4.8-10.8 10/03/2017 1:10/03/2017 1 :43pm Red Blood Count 4.61 x10e6/uL 3.6-5.1 10/03/2017 1:10/03/2017 1: 43pm Hemoglobin 14.2 g/dL 12.0-16.0 10/03/2017 1:10/03/2017 1:43pm Hematocrit 41.5 % 34.2-44.1 10/03/2017 1:10/03/2017 1:43pm Mean Corpuscular Volume 90.0 fL 81-99 10/03/2017 1:10/03/2017 1: 43pm Mean Corpuscular Hemoglobin 30.8 pg 28-32 10/03/2017 1:10/03/2017 1:43pm Mean Corpuscular Hemoglobin Concent 34.2 g/dL 31-35 10/03/2017 1:10/03/2017 1:43pm Red Cell Distribution Width 12.9 % 11.7-14.4 10/03/2017 1:2017 1:43pm Platelet Count 327 x10e3/uL 140-360 10/03/2017 1:10/03/2017 1: 43pm Neutrophils (%) (Auto) 70.3 % 38.7-80.0 10/03/2017 1:10/03/2017 1: 43pm Lymphocytes (%) (Auto) 20.4 % 18.0-39.1 10/03/2017 1:10/03/2017 1: 43pm Monocytes (%) (Auto) 7.1 % 4.4-11.3 10/03/2017 1:10/03/2017 1: 43pm Eosinophils (%) (Auto) 1.6 % 0.0-6.0 10/03/2017 1:25pm 10/03/2017 1: 43pm Basophils (%) (Auto) 0.4 % 0.0-1.0 10/03/2017 1:25pm 10/03/2017 1:43pm IM GRANULOCYTES % 0.2 % 0.0-1.0 10/03/2017 1:25pm 10/03/2017 1:43pm Neutrophils # (Auto) 6.6 2.1-6.9 10/03/2017 1:25pm 10/03/2017 1:43pm Lymphocytes # (Auto) 1.9 1.0-3.2 10/03/2017 1:25pm 10/03/2017 1:43pm Monocytes # (Auto) 0.7 0.2-0.8 10/03/2017 1:pm 10/03/2017 1:43pm Eosinophils # (Auto) 0.2 0.0-0.4 10/03/2017 1:25pm 10/03/2017 1:43pm Basophils # (Auto) 0.0 0.0-0.1 10/03/2017 1:pm 10/03/2017 1:43pm Absolute Immature Granulocyte (auto 0.02 x10e3/uL 0-0.1 10/03/2017 1: 25pm 10/03/2017 1:43pm Urine Color YELLOW YELLOW 10/03/2017 1:36pm 10/03/2017 1:49pm Urine Clarity CLEAR CLEAR 10/03/2017 1:36pm 10/03/2017 1:49pm Urine Specific [place] 1.005 L 1.010-1.025 10/03/2017 1:36pm 2017 1:49pm Urine pH 6 5 - 7 10/03/2017 1:36pm 10/03/2017 1:49pm Urine Leukocyte Esterase NEGATIVE NEGATIVE 10/03/2017 1:36pm 2017 1:49pm Urine Nitrite NEGATIVE NEGATIVE 10/03/2017 1:36pm 10/03/2017 1:49pm Urine Protein NEGATIVE NEGATIVE 10/03/2017 1:36pm 10/03/2017 1:49pm Urine Glucose (UA) NEGATIVE NEGATIVE 10/03/2017 1:36pm 10/03/2017 1: 49pm Urine Ketones NEGATIVE NEGATIVE 10/03/2017 1:36pm 10/03/2017 1:49pm Urine Urobilinogen 0.2 mg/dL 0.2 - 1 10/03/2017 1:36pm 10/03/2017 1: 49pm Urine Bilirubin NEGATIVE NEGATIVE 10/03/2017 1:36pm 10/03/2017 1: 49pm Urine Blood NEGATIVE NEGATIVE 10/03/2017 1:36pm 10/03/2017 1:49pm Urine WBC NONE /HPF 0-5 10/03/2017 1:36pm 10/03/2017 2:00pm Urine RBC NONE /HPF 0-5 10/03/2017 1:36pm 10/03/2017 2:00pm Urine Bacteria NONE /HPF NONE 10/03/2017 1:36pm 10/03/2017 2:00pm Urine Epithelial Cells FEW /LPF NONE 10/03/2017 1:36pm 10/03/2017 2: 00pm Urine Test NEGATIVE NEGATIVE 10/03/2017 1:37pm 10/03/2017 1 :50pm Sodium Level 136 mmol/L 136-145 10/03/2017 1:10/03/2017 2:00pm Potassium Level 3.6 mmol/L 3.5-5.1 10/03/2017 1:10/03/2017 2:00pm Chloride Level 103 mmol/L 98-107 10/03/2017 1:10/03/2017 2:00pm Carbon Dioxide Level 25 mmol/L 22-29 10/03/2017 1:10/03/2017 2: 00pm Anion Gap 11.6 mmol/L 8-16 10/03/2017 1:10/03/2017 2:00pm Blood Urea Nitrogen < 5 mg/dL L 7-26 10/03/2017 1:10/03/2017 2: 00pm Creatinine 0.67 mg/dL 0.57-1.11 10/03/2017 1:10/03/2017 2:00pm BUN/Creatinine Ratio 7 6-25 10/03/2017 1:10/03/2017 2:00pm Estimat Glomerular Filtration Rate > 60 ML/MIN 60- 10/03/2017 1: 2:00pm Ranges were taken from the National Kidney Disease Education Program and the National Kidney Foundation literature. Reference ranges: 60 or greater: Normal 16-59 (for 3 consecutive months): Chronic kidney disease 15 or less: Kidney failure Glucose Level 94 mg/dL 74-118 10/03/2017 1:25pm 10/03/2017 2:00pm Calcium Level 10.0 mg/dL 8.4-10.2 10/03/2017 1:pm 10/03/2017 2:00pm Total Bilirubin 0.4 mg/dL 0.2-1.2 10/03/2017 1:pm 10/03/2017 2:00pm Aspartate Amino Transf (AST/SGOT) 10 IU/L 5-34 10/03/2017 1:pm 2017 2:00pm Alanine Aminotransferase (ALT/SGPT) 25 IU/L 0-55 10/03/2017 1:pm 2:00pm Total Protein 7.0 g/dL 6.5-8.1 10/03/2017 1:pm 10/03/2017 2:00pm Albumin 3.8 g/dL 3.5-5.0 10/03/2017 1:10/03/2017 2:00pm Globulin 3.2 g/dL 2.3-3.5 10/03/2017 1:10/03/2017 2:00pm Albumin/Globulin Ratio 1.2 0.8-2.0 10/03/2017 1:pm 10/03/2017 2: 00pm Alkaline Phosphatase 73 IU/L 40-150 10/03/2017 1:pm 10/03/2017 2: 00pm Amylase Level 26 U/L 25-125 10/03/2017 1:pm 10/03/2017 2:00pm Lipase 8 U/L 8-78 10/03/2017 1:25pm 10/03/2017 2:00pm Microbiology Results Procedure Source Organism/Result Collection Date/Time Result Date/Time Result Status Blood Culture Blood NO GROWTH AFTER 5 DAYS, FINAL REPORT 08/22/2017 8:00am 08/27/2017 9:19am Final Procedures Procedure Status Date Provider(s) LAPAROSCOPIC CHOLECYSTECTOMY Completed 08/16/17 ABDOUL ORNELAS MD OCCLUSION OF COMMON BILE DUCT, PERC ENDO APPROACH Completed 08/23/17 GIL ORNELAS MD DRAINAGE OF PERITON CAV WITH DRAIN DEV, PERC ENDO APPROACH Completed GIL ORNELAS MD DILATION OF COMMON BILE DUCT, ENDO Completed 08/23/17 KELSI SORENSON MD FLUOROSCOPY OF BILE DUCTS USING LOW OSMOLAR CONTRAST Completed 08/23/17 KELSI SORENSON MD US gallbladder Active 08/13/17 ABDOUL ORNELAS MD Computed tomography of abdomen and pelvis with contrast Active 08/19/17 DESTINEE STEVENS MD Magnetic resonance cholangiopancreatography (MRCP) without contrast Active DESTINEE STEVENS MD Computed tomography of abdomen and pelvis with contrast Active 08/22/17 GIL ORNELAS MD Computed tomography of abdomen and pelvis with contrast Active 10/03/17 THELMA NEWTON Encounters Encounter Location Arrival/Admit Date Discharge/Depart Date Attending Provider Departed Emergency Room [facility] 10/03/17 12:56pm 10/03 5:15pm DESTINEE WELLS MD Discharged Inpatient [facility] 08/22/17 8:43am 08/27/17 12:17pm ABDOUL ORNELAS MD Discharged Inpatient [facility] 08/19/17 7:22pm 08/21/17 1:03pm ABDOUL ORNELAS MD Registered Surgical Day Care [facility] 08/16/17 8:13am ABDOUL ORNELAS MD Registered Clinic [facility] 08/13/17 12:25pm ABDOUL ORNELAS MD
--- OUTSIDE RECORDS SUMMARY | 2017-10-17 14:09 | XMS REPORT | Clinical Summary ---
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 Role Phone PCP Unavailable Allergies [...] Anesthesia Gastroenterology Kali Ch MD Event after 10/16/2016 Social History Tobacco Use Types Packs/Day Years [...] Not on file Implants Implanted Type Area Instructor Creeler Device Expiration Model / Identifier Date Serial / Lot Stent Bili Duodenal [id number] Stents-Per [employer] 2019 3433 / - [id number] ipheral [id number] Implanted: Qty: 1 on 09/28/2017 by [id number] / Shayna Lin MD [id number] Advanix Pancreatic Stent [employer] 10/30/2018 [id number] Implanted: Qty: 1 on 09/28/2017 by / Shayna Lin MD / [id number] Procedures Procedure Name Priority Date/Time Associated Diagnosis Comments ERCP,PANCREATIC STENT 09/28/2017 Bile leak 1:30 PM CDT Special Needs (C-ARM) ERCP,BILIARY STENT 09/28/2017 Bile leak 1:30 PM CDT Special Needs (C-ARM) PROCEDURE W/ C-ARM 09/28/2017 Bile leak 1:30 PM CDT Special Needs (C-ARM) ERCP,PAPILLOTOMY 09/28/2017 Bile leak 1:30 PM CDT Special Needs (C-ARM) after 10/16/2016 Results * REPORT OF PROCEDURE - ENDOSCOPY [...] seconds. Signed: Corey Lora MD Report Verified Date/Time:09/29/2017 07:52:59 Reading Location: [facility] Radiology Reading Room Procedure Note Interface, External [...] Report Verified Date/Time: 09/29/2017 07:52:59 Reading Location: [facility] Radiology Reading Room * POCT , urine (09/28/2017 11:41 AM) Component Value Ref Range Test Urine, POC Negative Control line present?, Yes POC Background clear?, POC Yes UPT Cassette Lot #, POC [id number] UPT Cassette Expiration 05/23/2019 Date, POC after 10/16/2016
[2017-10-17] MEDS ORDERED: SODIUM CHLORIDE 0.9% 1000ML 1,000 ML IV STA (14:28)
[2017-10-17] MEDS ORDERED: ASPIRIN 81 MG CHEW TAB PO ONE (14:30)
[2017-10-17 14:36] LABS: BASOPHILS # (AUTO) 0.1 (0.0-0.1); BASOPHILS % 0.9 % (0.0-1.0); EOSINOPHILS # (AUTO) 0.3 (0.0-0.4); EOSINOPHILS % 4.1 % (0.0-6.0); HEMATOCRIT 42.6 % (34.2-44.1); HEMOGLOBIN 14.9 g/dL (12.0-16.0); LYMPHOCYTES # (AUTO) 2.5 (1.0-3.2); MEAN CORPUSCULAR HEMOGLOBIN 30.8 pg (28-32); MONOCYTES # (AUTO) 0.7 (0.2-0.8); MONOCYTES % 8.2 % (4.4-11.3); NEUTROPHILS # (AUTO) 4.4 (2.1-6.9); NEUTROPHILS % 55.5 % (38.7-80.0); PLATELET COUNT 344 x10e3/uL (140-360); RED BLOOD COUNT 4.84 x10e6/uL (3.6-5.1); RED CELL DISTRIBUTION WIDTH 12.5 % (11.7-14.4)
[2017-10-17] MEDS ORDERED: MORPHINE SULFATE 2 MG/ML SYR ONE (14:40)
[2017-10-17 14:42] LABS: BILIRUBIN,URINE NEGATIVE (NEGATIVE); CLARITY,URINE CLEAR (CLEAR); COLOR,URINE YELLOW (YELLOW); KETONES,URINE NEGATIVE (NEGATIVE); LEUKOCYTE ESTERASE ,URINE NEGATIVE (NEGATIVE); NITRITE,URINE NEGATIVE (NEGATIVE); PREGNANCY TEST, URINE NEGATIVE (NEGATIVE); PROTEIN,URINE DIPSTICK NEGATIVE (NEGATIVE); URINE UROBILINOGEN 0.2 mg/dL (0.2 - 1)
[2017-10-17 14:45] LABS: BACTERIA,URINE FEW /HPF; EPITHELIAL CELLS,URINE FEW /LPF; RBC,URINE 0-5 /HPF (0-5); WBC,URINE (MAN) 0-5 /HPF (0-5)
[2017-10-17 14:52] LABS: ALANINE AMINOTRANSFERASE 20 IU/L (0-55); ALBUMIN 4.3 g/dL (3.5-5.0); ALBUMIN/GLOBULIN RATIO 1.5 (0.8-2.0); ALKALINE PHOSPHATASE 69 IU/L (40-150); ANION GAP 14.2 mmol/L (8-16); BLOOD UREA NITROGEN 9 mg/dL (7-26); BUN/CREATININE RATIO 13 (6-25); CARBON DIOXIDE 21 mmol/L (22-29); CHLORIDE 107 mmol/L (98-107); CREATINE KINASE 50 IU/L (29-168); CREATININE, SERUM 0.71 mg/dL (0.57-1.11); EST GLOMERULAR FILTRATION RATE > 60 ML/MIN (60-); GLUCOSE 93 mg/dL (74-118); LIPASE 25 U/L (8-78); POTASSIUM 4.2 mmol/L (3.5-5.1); SODIUM 138 mmol/L (136-145)
[2017-10-17] MEDS ORDERED: ONDANSETRON HCL 4 MG ORAL DISINTEGRATING TAB PO ONE ×2 (15:00→19:00)
[2017-10-17] MEDS ORDERED: MORPHINE SULFATE 4 MG/ML SYR IV ONE (15:00)
--- NOTE | 2017-10-17 15:28 | Diagnostic Imaging Report ---
EXAMINATION: CHEST SINGLE (PORTABLE) INDICATION: \S\ERMD ORDER \[id number] \S\[id number] \S\Y COMPARISON: None FINDINGS: AP view TUBES and LINES: None. LUNGS: Lungs are well inflated. Left basilar airspace opacity. There is no evidence of pulmonary edema. PLEURA: Small right pleural effusion. No left pleural effusion. No pneumothorax. HEART AND MEDIASTINUM: The cardiomediastinal silhouette is unremarkable. BONES AND SOFT TISSUES: No acute osseous lesion. Soft tissues are unremarkable. UPPER ABDOMEN: No free air under the diaphragm. IMPRESSION: Small right pleural effusion with adjacent opacity likely representing atelectasis. Underlying pneumonia not excluded. Signed by: DR. Oren Morse MD on 10/17/2017 3:24 PM
[2017-10-17] MEDS ORDERED: HYDROMORPHONE 2MG/ML INJ IV ONE ×2 (15:30→19:00)
--- NOTE | 2017-10-17 16:44 | Diagnostic Imaging Report ---
EXAM: CT Abdomen and Pelvis WITH contrast INDICATION: \S\r/o post op infection \[id number] \S\[id number] COMPARISON: CT 10/03/2017 TECHNIQUE: Abdomen and pelvis were scanned utilizing a multidetector helical scanner from the lung base to the pubic symphysis after administration of IV contrast. Coronal and sagittal reformations were obtained. Routine protocol was performed. Scan was performed when during portal venous phase. IV CONTRAST: 100 mL of Isovue-370 ORAL CONTRAST: Water COMPLICATIONS: None RADIATION DOSE: Total DLP: 684.6 mGy*cm Estimated effective dose: (DLP x 0.015 x size factor) mSv CTDIvol has been reviewed. It is below the limits set by the Radiation Protocol Committee (RPC). FINDINGS: LINES and TUBES: Common bile duct stent in place. The pancreatic stent is longer visualized. LOWER THORAX: Mild bibasilar atelectasis. HEPATOBILIARY: No focal hepatic lesions. No biliary ductal dilation. Previous pneumobilia no longer visualized. GALLBLADDER: There are cholecystectomy clips. No wall thickening. SPLEEN: No splenomegaly. PANCREAS: No focal masses or ductal dilatation. ADRENALS: No adrenal nodules KIDNEYS/URETERS: Kidneys enhance symmetrically. No hydronephrosis. No cystic or solid mass lesions. No stones. GI TRACT: No abnormal distention, wall thickening, or evidence of bowel obstruction. Appendix is normal. PELVIC ORGANS/BLADDER: Unremarkable. LYMPH NODES: No lymphadenopathy. VESSELS: There is mild atherosclerotic disease in the aorta and major arterial branches. PERITONEUM / RETROPERITONEUM: Trace free fluid in the deep pelvis. Slightly decreased fluid/inflammatory changes around the pete hepatis. BONES: Unremarkable. SOFT TISSUES: Unremarkable. IMPRESSION: 1. Common bile duct stent remains in place. Lack of pneumobilia within the liver could suggest early tube malfunction. No intrahepatic biliary ductal dilatation to otherwise suggest occlusion. Consider correlation with LFTs. 2. Slightly decreased postoperative changes of the pete hepatis. Signed by: DR. Oren Morse MD on 10/17/2017 4:41 PM
[2017-10-17] MEDS ORDERED: SODIUM CHLORIDE 0.9% 50ML 50 ML ONE (18:00)
[2017-10-17] MEDS ORDERED: IOPAMIDOL 370 MG/ML 200 ML INFUS..BTL INJ ONE (18:00)
== END 2017-10-17 18:38 | disposition short-term general hospital (02) ==
LOC: ER 14:06
DX: R10.11 Right upper quadrant pain (principal); R10.12 Left upper quadrant pain; R10.13 Epigastric pain; R11.0 Nausea; R19.7 Diarrhea, unspecified
CPT/HCPCS: 93005; 99284; J1170; J2270; J7030; Q9967

== ENCOUNTER 2020-01-01 21:01 | Emergency (ER) | payer OTHER ==
[~2020-01-01] VITALS: Ht 160 cm; Wt 86.2 kg
[2020-01-01] MEDS ORDERED: ASPIRIN 81 MG CHEW TAB PO ONE (21:45)
[2020-01-01 21:46] LABS: BASOPHILS # (AUTO) 0.1 (0.0-0.1); BASOPHILS % 0.5 % (0.0-1.0); EOSINOPHILS # (AUTO) 0.2 (0.0-0.4); EOSINOPHILS % 1.7 % (0.0-6.0); HEMATOCRIT 40.4 % (34.2-44.1); HEMOGLOBIN 13.6 g/dL (12.0-16.0); LYMPHOCYTES # (AUTO) 1.9 (1.0-3.2); LYMPHOCYTES % 14.4 % (18.0-39.1); MEAN CORPUSCULAR HEMOGLOBIN 30.3 pg (28-32); MEAN CORPUSCULAR HGB CONC 33.7 g/dL (31-35); MONOCYTES # (AUTO) 0.8 (0.2-0.8); MONOCYTES % 6.5 % (4.4-11.3); NEUTROPHILS # (AUTO) 9.8 (2.1-6.9); NEUTROPHILS % 76.4 % (38.7-80.0); PLATELET COUNT 322 x10e3/uL (140-360); RED BLOOD COUNT 4.49 x10e6/uL (3.6-5.1); RED CELL DISTRIBUTION WIDTH 12.9 % (11.7-14.4)
[2020-01-01] MEDS ORDERED: KETOROLAC TROMETHAMINE 30 MG/ML VIAL IV STA (21:53)
[2020-01-01 21:58] LABS: INR 0.82; PARTIAL THROMBOPLASTIN TIME 28.3 seconds (23.8-35.5); PROTHROMBIN TIME 11.7 seconds (11.9-14.5)
[2020-01-01] MEDS ORDERED: KETOROLAC TROMETHAMINE 60 MG/2 ML VIAL IM ONE (22:00)
[2020-01-01] MEDS ORDERED: DIAZEPAM 5 MG TAB PO PRN (22:00)
[2020-01-01 22:05] LABS: ALANINE AMINOTRANSFERASE 20 IU/L (0-55); ALBUMIN 3.9 g/dL (3.5-5.0); ALBUMIN/GLOBULIN RATIO 1.6 (0.8-2.0); ALKALINE PHOSPHATASE 54 IU/L (40-150); ANION GAP 11.7 mmol/L (8-16); BLOOD UREA NITROGEN 9 mg/dL (7-26); BUN/CREATININE RATIO 10 (6-25); CALCIUM 9.1 mg/dL (8.4-10.2); CARBON DIOXIDE 24 mmol/L (22-29); CHLORIDE 106 mmol/L (98-107); CREATINE KINASE 66 IU/L (29-168); CREATININE, SERUM 0.88 mg/dL (0.57-1.11); EST GLOMERULAR FILTRATION RATE > 60 ML/MIN (60-); GLUCOSE 123 mg/dL (74-118); POTASSIUM 3.7 mmol/L (3.5-5.1); SODIUM 138 mmol/L (136-145)
--- NOTE | 2020-01-01 22:06 | Emergency Department Note ---
History of Present Illnes History of Present Illness Chief Complaint: Chest Pain History of Present Illness This is a 39 year old female arrives to the ED with complaints of right-sided chest pain worse with motion for several days. . Historian: Patient Arrival Mode: Car Onset (how long ago): day(s) Severity: mild Timing of current episode: intermittent Progression: worsening Past Medical/Family History Physician Review I have reviewed the patient's past medical and family history. Any updates have been documented here. Past Medical History Recent Fever: No Clinical Suspicion of Infectio: No New/Unexplained Change in Ment: No Past Medical History: Anxiety Other Medical History: ANXIETY Past Surgical History: Cholecysctectomy Other Surgery: ERCP with stent placement Bile leak repair Social History Smoking Cessation: Current every day smoker Counseling Performed: Yes Alcohol Use: Social Any Illegal Drug Use: No Other Last Tetanus: UTD Any Pre-Existing Lines (PICC,: No Review of Systems Review of Systems Constitutional: Reports no symptoms EENTM: Reports no symptoms Cardiovascular: Reports no symptoms Respiratory: Reports no symptoms Gastrointestinal: Reports no symptoms Genitourinary: Reports no symptoms Musculoskeletal: Reports as per HPI, Reports back pain Integumentary: Reports no symptoms Neurological: Reports no symptoms Psychological: Reports no symptoms Endocrine: Reports no symptoms Hematological/Lymphatic: Reports no symptoms Physical Exam Related Data Allergies: Coded Allergies: Penicillins (Verified Allergy, Unknown, 01/01/20) latex (Verified Allergy, Unknown, skin rash, 10/17/17) Uncoded Allergies: ADHESIVES (Allergy, Unknown, burning sensation to skin, 10/17/17) Triage Vital Signs Vital Signs Date Time Temp Pulse Resp B/P (MAP) Pulse Ox O2 Delivery O2 Flow Rate FiO2 01/01/20 21:25 98.4 92 20 153/76 95 Room Air Physical Exam CONSTITUTIONAL Constitutional: Present well-developed, Present well-nourished HENT HENT: Present normocephalic, Present atraumatic, Present oropharynx clear/moist, Present nose normal HENT L/R: Present left ext ear normal, Present right ext ear normal EYES Eyes: Reports PERRL, Reports conjunctivae normal NECK Neck: Present ROM normal PULMONARY Pulmonary: Present effort normal, Present breath sounds normal CARDIOVASCULAR Cardiovascular: Present regular rhythm, Present heart sounds normal, Present capillary refill normal, Present normal rate GASTROINTESTINAL Abdominal: Present soft, Present nontender, Present bowel sounds normal GENITOURINARY Genitourinary: Present exam deferred SKIN Skin: Present warm, Present dry MUSCULOSKELETAL Musculoskeletal: Present ROM normal, Present tenderness (no deformity, no skin break noted, reproducible tenderness noted over medial aspect of right scapula) NEUROLOGICAL Neurological: Present alert, Present oriented x 3, Present no gross motor or sensory deficits PSYCHOLOGICAL Psychological: Present mood/affect normal, Present judgement normal Results Laboratory Result Diagram: 01/01/20 2124 Laboratory Laboratory Tests Test 01/01/20 21:24 White Blood Count 12.89 x10e3/uL (4.8-10.8) Red Blood Count 4.49 x10e6/uL (3.6-5.1) Hemoglobin 13.6 g/dL (12.0-16.0) Hematocrit 40.4 % (34.2-44.1) Mean Corpuscular Volume 90.0 fL (81-99) Mean Corpuscular Hemoglobin 30.3 pg (28-32) Mean Corpuscular Hemoglobin Concent 33.7 g/dL (31-35) Red Cell Distribution Width 12.9 % (11.7-14.4) Platelet Count 322 x10e3/uL (140-360) Neutrophils (%) (Auto) 76.4 % (38.7-80.0) Lymphocytes (%) (Auto) 14.4 % (18.0-39.1) Monocytes (%) (Auto) 6.5 % (4.4-11.3) Eosinophils (%) (Auto) 1.7 % (0.0-6.0) Basophils (%) (Auto) 0.5 % (0.0-1.0) Neutrophils # (Auto) 9.8 (2.1-6.9) Lymphocytes # (Auto) 1.9 (1.0-3.2) Monocytes # (Auto) 0.8 (0.2-0.8) Eosinophils # (Auto) 0.2 (0.0-0.4) Basophils # (Auto) 0.1 (0.0-0.1) Absolute Immature Granulocyte (auto 0.07 x10e3/uL (0-0.1) Lab results reviewed: Yes Imaging Imaging results reviewed: Yes Procedures 12 Lead ECG Interpretation ECG Interpretation : ECG: ECG 1 Rhythm: sinus rhythm Rate: normal QRS axis: normal ST segments normal: Yes Clinical Impression: normal ECG Assessment & Plan Medical Decision Making MDM 39-year-old well-appearing female arrives to the ED with reproducible right- sided shoulder pain, no skin break noted. Patient's pain was reproducible with pinpoint tenderness noted over medial aspect of right scapula. Spoke to patient with physical therapy exercises. Pain was controlled patient stable for discharge. Assessment & Plan Final Impression: (1) Musculoskeletal back pain Depart Disposition: HOME, SELF-CARE Last Vital Signs Date Time Temp Pulse Resp B/P (MAP) Pulse Ox O2 Delivery O2 Flow Rate FiO2 01/01/20 21:37 92 22 132/78 97 Room Air 01/01/20 21:25 98.4 Home Meds Reported Medications Acetaminophen/Codeine* (TYLENOL # 3*) 1 Ea Tab, 1 PO Q6HR PRN for ABDOMINAL PAIN 08/22/17 Escitalopram Oxalate (LEXAPRO) 10 Mg Tablet, 10 MG PO DAILY, #30 TAB 08/16/17 Medications in the ED Aspirin 81 mg PRN ONCE PO ; Start 01/01/20 at 21:45; Stop 01/01/20 at 21:46 Ketorolac Tromethamine 60 mg ONCE ONCE IM ; Start 01/01/20 at 22:00; Stop 01/01/20 at 22:01; Status UNV Diazepam 5 mg ONCE PRN PO ANXIETY; Start 01/01/20 at 22:00; Stop 01/08/20 at 21:59; Status UNV JENNIFER BE DO Jan 01, 2020 22:06
--- NOTE | 2020-01-01 22:48 | Diagnostic Imaging Report ---
EXAMINATION: CHEST SINGLE (PORTABLE) INDICATION: ^CHEST PAIN ^Y COMPARISON: 10/17/2017 FINDINGS: AP view TUBES and LINES: None. LUNGS: Lungs are well inflated. Left midlung linear opacity PLEURA: No pleural effusion or pneumothorax. HEART AND MEDIASTINUM: The cardiomediastinal silhouette is unremarkable. BONES AND SOFT TISSUES: No acute osseous lesion. Soft tissues are unremarkable. UPPER ABDOMEN: No free air under the diaphragm. IMPRESSION: Left midlung linear opacity, probably atelectasis/scarring. Developing pneumonia cannot be entirely excluded in the appropriate clinical context. Otherwise, unremarkable chest x-ray. Signed by: Dr. Regan Rojas MD on 01/01/2020 10:45 PM
[2020-01-01] MEDS ORDERED: LIDOCAINE 4% PATCH TP ONE (23:00)
[2020-01-01] MEDS ORDERED: HYDROCODONE/APAP 10MG-325MG TAB PO ONE (23:00)
[2020-01-01 23:15] VITALS: BP 107/65
--- OUTSIDE RECORDS SUMMARY | 2020-01-02 00:03 | XMS REPORT | Clinical Summary ---
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 Adhesive Tape 09/27/2017 Burned skin. Latex 09/27/2017 Medications End Date Status Medication Sig Dispensed Refills Start Date Active escitalopram oxalate Take 10 mg by 0 (LEXAPRO) 10 MG tablet mouth nightly. Active traMADol (ULTRAM) 50 mg Take 1 tablet 30 tablet 0 tablet (50 mg total) 8 by mouth every 6 (six) hours as needed for Pain. Max Daily Amount: 200 mg Active Problems Problem Noted Date Generalized abdominal pain 10/18/2017 Abdominal pain 10/17/2017 Social History Date Tobacco Use Types Packs/Day Years Used Current Every Day Smoker 0.5 25 Smokeless Tobacco: Never Used Tobacco Cessation: Ready to Quit: No Comments: to be given on day of procedure. Alcohol Use Drinks/Week oz/Week Comments Yes occasionally Sex Assigned at Date Recorded Not on file Industry Job Start Date Occupation Not on file Not on file Not on file Travel End Travel History Travel Start No recent travel history available. Last Filed Vital Signs Not on file Plan of Treatment Not on file Implants Device Identifier Shelf Expiration Date Model / Serial / L ot Implanted Type Area Manufactur er 10/30/2018 [id number] / / [id number] Advanix Pancreatic Stent [employer] Implanted: Qty: 1 on 09/28/2017 by SCI:Shayna Roque MD Results Not on fileafter 01/01/2019 Insurance Payer Benefit Subscriber ID Type Phone Address Plan / Group [employer] - [employer] CARE AET[employer] xxxxxxxxx HMO/POS SELECT US ACCESS Advance Directives For more information, please contact: [address] [address] Date Inactivated Comments Code Status Date Activated 10/19/2017 10:02 PM Full Code 10/17/2017 9:52 PM This code status was determined by: Patient
--- OUTSIDE RECORDS SUMMARY | 2020-01-02 00:04 | XMS REPORT | Continuity of Care Document ---
Author Author [facility] t Organization [facility] Address [address] [place] [address] Phone Unavailable Care Team Providers Care Supervisor Knitting Name Role Phone ELIANE CAMACHO DO PCP Jazzy BE Attphys Unavailable TIRUKKOVESPINOZA, ALEXANDRA Attphys Unavailable Jesse WELLS Attphys Unavailable CECI, ABDOUL Attphys Unavailable TIRUKKOVALLTOM, ALEXANDRA Admphys Unavailable CECI, ABDOUL Admphys Unavailable Payers Payer Name Policy Type Policy Number Effective Date Expiration Date Jazzy Marsh o [id number] 2017 00:00:00 [facility] Problems Condition Name Condition Details Condition Category Status Onset Date Resolution Date Last Treatment Date Treating Clinician Comments Source Generalized abdominal pain Generalized abdominal pain Disease Active 2017-10-18 00:00:00 [facility] Abdominal pain Abdominal pain Disease Active 2017-10-17 00:00:00 [facility] Common bile duct calculus Common bile duct stone Problem Active [facility] Leukocytosis Leukocytosis Problem Active [facility] Postoperative pain Post-op pain Problem Active [facility] Allergies, Adverse Reactions, Alerts Allergy Name Allergy Type Status Severity Reaction(s) Onset Date Inacti ve Date Treating Clinician Comments Source Latex Allergy to Substance Active skin rash 2017-10-17 00:00:00 [facility] ADHESIVES Allergy to Substance Active burning sensati on to skin 2017-10-17 00:00:00 [facility] Adhesive Tape Propensity to adverse reactions Active 08-10-06 00:00:00 [facility]ed [facility]. [facility] Latex Propensity to adverse reactions Active 00:00:00 Burned skin. [facility] Social History Social Habit Start Date Stop Date Quantity Comments Source Sex Assigned At [facility] Cigarettes smoked current (pack per day) - Reported 00:00:00 2017-10-19 00:00:00 [facility] Cigarette pack-years 2017-10-19 00:00:00 2017-10-19 00:00:00 [facility] Tobacco Comment 2017-09-27 00:00:00 2017-09-27 00:00:00 to be gi eliot on day of procedure. [facility] Alcohol Comment 2017-09-27 00:00:00 2017-09-27 00:00:00 occasionally [facility] Smoking Status Start Date Stop Date Source Current every day smoker 2017-10-19 00:00:00 [facility] Medications Ordered Medication Name Filled Medication Name Start Date Stop Da te Current Medication? Ordering Clinician Indication Dosage Frequency Signature (SIG) Comments Components Source traMADol (ULTRAM) 50 mg tablet 2017-10-19 00:00:00 Yes 50mg Take 1 tablet (50 mg total) by mouth every 6 (six) hours as needed for Pain. Max Daily Amount: 200 mg [facility] escitalopram oxalate (LEXAPRO) 10 MG tablet 2017-09-27 10:05:49 Yes 10mg QD Take 10 mg by mouth nightly. [facility] Acetaminophen/Codeine Phosphate (Tylenol # 3*) 1 Ea Ta b Acetaminophen/Codeine Phosphate (Tylenol # 3*) 1 Ea Tab Yes 1 Every 6 Hours as needed for Abdominal Pain [facility] Escitalopram Oxalate (Lexapro) 10 Mg Tablet Escitalopr am Oxalate (Lexapro) 10 Mg Tablet Yes 10 Daily [facility] Dicyclomine Hcl (Bentyl) 10 Mg/1 Ml Ampul, 10 Mg Intra eliot Dicyclomine Hcl (Bentyl) 10 Mg/1 Ml Ampul, 10 Mg Intraven 2017-08-22 00:00:00 No 10 Four Times Daily [facility] Levofloxacin (Levaquin) 500 Mg Tablet, 500 Mg Oral Lev ofloxacin (Levaquin) 500 Mg Tablet, 500 Mg Oral 2017-08-22 00:00:00 No 500 D aily [facility] Procedures Procedure Date / Time Performed Performing Clinician [facility] e Computed tomography of abdomen and pelvis with contrast 2017 00:00:00 IVY GARDNER [facility] Computed tomography of abdomen and pelvis with contrast 2017 00:00:00 THELMA NEWTON [facility] OCCLUSION OF COMMON BILE DUCT, PERC ENDO APPROACH 2017-08-23 00:00:00 GIL SHEFFIELD [facility] DRAINAGE OF PERITON CAV WITH DRAIN DEV, [facility] ENDO APPROACH 2 00:00:00 GIL SHEFFIELD [facility] DILATION OF COMMON BILE DUCT, ENDO 2017-08-23 00:00:00 Lori MALONEY [facility] FLUOROSCOPY OF BILE DUCTS USING LOW OSMOLAR CONTRAST 2017-08 00:00:00 KELSI MALONEY [facility] Computed tomography of abdomen and pelvis with contrast 2017 00:00:00 GIL SHEFFIELD [facility] Magnetic resonance cholangiopancreatography (MRCP) wit hout contrast 2017-08-20 00:00:00 DESTINEE STEVENS [facility] Computed tomography of abdomen and pelvis with contrast 2017 00:00:00 DESTINEE STEVENS [facility] LAPAROSCOPIC CHOLECYSTECTOMY 2017-08-16 00:00:00 MELINDA SHEFFIELD [facility] US gallbladder 2017-08-13 00:00:00 ABDOUL SHEFFIELD [facility] Encounters Start Date/Time End Date[facility] ID Source 2017-10-17 14:06:00 2017-10-17 18:38:00 Departed Emergency Room 1 [facility] [id number] [facility] 2017-10-03 12:56:00 2017-10-03 17:15:00 Departed Emergency Room 1 DESTINEE WELLS [facility] [id number] [facility] 2017-08-22 08:43:00 2017-08-27 12:17:00 [id number] 2017-08-19 19:22:00 2017-08-21 13:03:00 Discharged Inpatient ER CECI [facility] [id number] [facility] 2017-08-16 08:13:00 2017-08-16 08:13:00 Registered Surgical Day Care [facility] [id number] [facility] 2017-08-13 12:25:00 2017-08-13 12:25:00 Registered Clinic EL CECI [facility] [id number] [facility] Results Test Description Test Time Test Comments Results Result Comments Source CHEST SINGLE (PORTABLE) 2020-01-01 22:40:00 [place] [address] Patient Name: DARÍO BARAJAS MR #: [id number] : 1980 Age/Sex: 39/F Req #: [id number] Adm Physician: Ordered by: JENNIFER BE DO Report #: [id number] Location: ER Room/Bed: Procedure: [id number] DX/CHEST SINGLE (PORTABLE) Exam Date: 01/01/20 Exam Time: 2139 REPORT STATUS: Signed EXAMINATION: CHEST SINGLE (PORTABLE) INDICATION: CHEST PAIN Y COMPARISON: 10/17/2017 FINDINGS: AP view TUBES and LINES: None. LUNGS: Lungs are well inflated. Left midlung linear opacity PLEURA: No pleural effusion or pneumothorax. HEART AND MEDIASTINUM: The cardiomediastinal silhouette is unremarkable. BONES AND SOFT TISSUES: No acute osseous lesion. Soft tissues are unremarkable. UPPER ABDOMEN: No free air under the diaphragm. IMPRESSION: Left midlung linear opacity, probably atelectasis/scarring. Developing pneumonia cannot be entirely excluded in the appropriate clinical context. Otherwise, unremarkable chest x-ray. Signed by: Dr. Regan Mendoza MD on 01/01/2020 10:45 PM Dictated By: REGAN MENDOZA MD 44 Transcribed By: CHARU on 01/01/202244 COPY TO: JENNIFER BE DO [place], ERCP 2017-10-21 08:16:00 INTRA OP IMAGINGReason for e xam:->ABDOMINAL PAIN FINAL REPORT ERCP 4 views 10/21/2017 8:15 AM CLINICAL HISTORY: Instrument localization COMPARISON: None available IMPRESSION: Please correlate imaging report findings with the procedure note prepared by Dr. Tompkins, as an intra-procedure imaging consultation was not requested. Reported fluoroscopy time: 55.0 seconds. Signed: Corey Ohara Verified Date/Time: 10/21/2017 08:16:11 Reading Location: [address] Neuro Reading Room EN, URINE 2017-10-19 12:06:00 Test Item TEST URINE (BEAKER) (test code = 583) Negative CBC W/PLT COUNT & AUTO [id number] 06:46:00* Test Item Value Reference Range Interpretation Comments WHITE BLOOD CELL COUNT (BEAKER) (test code = 775) 7.8 K/ L 3.5- 10.5 RED BLOOD CELL COUNT (BEAKER) (test code = 761) 4.17 M/ L 3.93-5 .22 HEMOGLOBIN (BEAKER) (test code = 410) 12.7 GM/DL 11.2-15.7 HEMATOCRIT (BEAKER) (test code = 411) 38.7 % 34.1-44.9 MEAN CORPUSCULAR VOLUME (BEAKER) (test code = 753) 92.8 fL 79. 4-94.8 MEAN CORPUSCULAR HEMOGLOBIN (BEAKER) (test code = 751) 30.5 pg 25.6-32.2 MEAN CORPUSCULAR HEMOGLOBIN CONC (BEAKER) (test code = 752) 32.8 GM/DL 32.2-35.5 RED CELL DISTRIBUTION WIDTH (BEAKER) (test code = 412) 12.6 % 11.7-14.4 PLATELET COUNT (BEAKER) (test code = 756) 297 K/CU MM 150-450 MEAN PLATELET VOLUME (BEAKER) (test code = 754) 9.1 fL 9.4-12 .3 L NUCLEATED RED BLOOD CELLS (BEAKER) (test code = 413) 0 /100 WBC 0 -0 NEUTROPHILS RELATIVE PERCENT (BEAKER) (test code = 429) 57 % LYMPHOCYTES RELATIVE PERCENT (BEAKER) (test code = 430) 30 % MONOCYTES RELATIVE PERCENT (BEAKER) (test code = 431) 7 % EOSINOPHILS RELATIVE PERCENT (BEAKER) (test code = 432) 5 % BASOPHILS RELATIVE PERCENT (BEAKER) (test code = 437) 1 % NEUTROPHILS ABSOLUTE COUNT (BEAKER) (test code = 670) 4.43 K/ L 1.56-6.13 LYMPHOCYTES ABSOLUTE COUNT (BEAKER) (test code = 414) 2.35 K/ L 1.18-3.74 MONOCYTES ABSOLUTE COUNT (BEAKER) (test code = 415) 0.52 K/ L 0. 24-0.36 H EOSINOPHILS ABSOLUTE COUNT (BEAKER) (test code = 416) 0.40 K/ L 0.04-0.36 H BASOPHILS ABSOLUTE COUNT (BEAKER) (test code = 417) 0.06 K/ L 0. 01-0.08 IMMATURE GRANULOCYTES-RELATIVE PERCENT (BEAKER) (test code = 2801) 0 % 0-1 LIPID [id number] 05:49:00* Test Item Value Reference Range Interpretation Comments TRIGLYCERIDES (BEAKER) (test code = 540) 250 mg/dL CHOLESTEROL (BEAKER) (test code = 631) 168 mg/dL HDL CHOLESTEROL (BEAKER) (test code = 976) 29 mg/dL LDL CHOLESTEROL CALCULATED (BEAKER) (test code = 633) 89 mg/dL Triglyceride Reference Range: Low Risk <150 Borderline 150-199 High Risk 200-499 Very High Risk >=500Cholesterol Reference Range: Low Risk <200 Borderline 200-239 High Risk >240HDL Cholesterol Reference Range: Low Risk >=60 High Risk <40LDL Cholesterol Reference Range: Optimal <100 Near Optimal 100-129 Borderline 130-159 High 160-189 Very High >=190 BASIC METABOLIC [id number] 05:49:00* Test Item Value Reference Range Interpretation Comments SODIUM (BEAKER) (test code = 381) 141 meq/L 136-145 POTASSIUM (BEAKER) (test code = 379) 3.7 meq/L 3.5-5.1 CHLORIDE (BEAKER) (test code = 382) 111 meq/L 98-107 H CO2 (BEAKER) (test code = 355) 21 meq/L 22-29 L BLOOD UREA NITROGEN (BEAKER) (test code = 354) 11 mg/dL 7-21 CREATININE (BEAKER) (test code = 358) 0.60 mg/dL 0.57-1.25 GLUCOSE RANDOM (BEAKER) (test code = 652) 94 mg/dL 70-105 CALCIUM (BEAKER) (test code = 697) 9.0 mg/dL 8.4-10.2 EGFR (BEAKER) (test code = 1092) 112 mL/min/1.73 sq m ESTIMATED GFR IS NOT ACCURATE CREATININE CLEARANCE IN PREDICTING GLOMERULAR FILTRATION RATE. ESTIMATED GFR IS NOT APPLICABLE FOR DIALYSIS PATIENTS. Creatine Kinase [id number] 14:58:00* Test Item Value Reference Range Interpretation Comments Creatine Kinase MB (test code = 84279-6) 0.40 0-5.0 [facility] CenterTroponin [id number] 14:58:00* Test Item Value Reference Range Interpretation Comments Troponin I (test code = BSC0918) 0.006 0-0.300 [facility] Zvstn3599-32-46 14:52:00* Test Item Value Reference Range Interpretation Comments Sodium Level (test code = 2951-2) 138 136-145 [facility] CenterPotassium Pmmnt6034-78-51 14:52:00* Test Item Value Reference Range Interpretation Comments Potassium Level (test code = 2823-3) 4.2 3.5-5.1 [facility] CenterChloride Lhnyt4232-27-81 14:52:00* Test Item Value Reference Range Interpretation Comments Chloride Level (test code = 2075-0) 107 98-107 [facility] CenterCarbon Dioxide [id number] 14:52:00* Test Item Value Reference Range Interpretation Comments Carbon Dioxide Level (test code = 2028-9) 21 22-29 L [facility] CenterAnion Gcb8667-00-07 14:52:00* Test Item Value Reference Range Interpretation Comments Anion Gap (test code = 70387-0) 14.2 8-16 [facility] CenterBlood Urea Nfusaxaz6851-53-59 14:52:00* Test Item Value Reference Range Interpretation Comments Blood Urea Nitrogen (test code = 3094-0) 9 7-26 [facility] CenterCreatinine2018-05-27 14:52:00* Test Item Value Reference Range Interpretation Comments Creatinine (test code = 2160-0) 0.71 0.57-1.11 [facility] CenterBUN/Creatinine Viawc6565-38-79 14:52:00* Test Item Value Reference Range Interpretation Comments BUN/Creatinine Ratio (test code = 3097-3) 13 6-25 [facility] CenterEstimat Glomerular Filtration Rate 2017-10-17 14:52:00* Test Item Value Reference Range Interpretation Comments Estimat Glomerular Filtration Rate (test code = 30715-7) 60- >60 Ranges were taken from the National Kidney Disease Education Program and the [facility] literature.Reference ranges:60 or greater: Zddadg85-59 ( for 3 consecutive months): Chronic kidney disease 15 or less: Kidney failureLamb Healthcare CenterGlucose Bgxsg6022-88-48 14:52:00* Test Item Value Reference Range Interpretation Comments Glucose Level (test code = XWK7590) 93 74-118 [facility] CenterCalcium Thtks9559-56-56 14:52:00* Test Item Value Reference Range Interpretation Comments Calcium Level (test code = 86787-2) 10.0 8.4-10.2 [facility] CenterTotal Exwdqkurs9868-90-19 14:52:00* Test Item Value Reference Range Interpretation Comments Total Bilirubin (test code = 1975-2) 0.4 0.2-1.2 [facility] CenterAspartate Amino Transf (AST/SGOT) 2017-10-17 14:52:00* Test Item Value Reference Range Interpretation Comments Aspartate Amino Transf (AST/SGOT) (test code = Aspartate Amino Transf (AST/SGOT)) 13 5-34 [facility] CenterAlanine Aminotransferase (ALT/SGPT) 2017-10-17 14:52:00* Test Item Value Reference Range Interpretation Comments Alanine Aminotransferase (ALT/SGPT) (test code = 1742-6) 20 0-55 [facility] CenterTotal Brwhmhb2635-56-18 14:52:00* Test Item Value Reference Range Interpretation Comments Total Protein (test code = 2885-2) 7.1 6.5-8.1 [facility] CenterAlbumin2018-05-27 14:52:00* Test Item Value Reference Range Interpretation Comments Albumin (test code = 1751-7) 4.3 3.5-5.0 [facility] CenterGlobulin2018-05-27 14:52:00* Test Item Value Reference Range Interpretation Comments Globulin (test code = 11319-2) 2.8 2.3-3.5 [facility] CenterAlbumin/Globulin Gwajw7224-23-01 14:52:00 * Test Item Value Reference Range Interpretation Comments Albumin/Globulin Ratio (test code = 1759-0) 1.5 0.8-2.0 [facility] CenterAlkaline Qkzmtgoxdyk6651-53-97 14:52:00* Test Item Value Reference Range Interpretation Comments Alkaline Phosphatase (test code = 6768-6) 69 40-150 [facility] CenterCreatine Jfflqs8072-77-55 14:52:00* Test Item Value Reference Range Interpretation Comments Creatine Kinase (test code = 2157-6) 50 29-168 [facility] CenterLipase2018-05-27 14:52:00* Test Item Value Reference Range Interpretation Comments Lipase (test code = 3040-3) 25 8-78 [facility] CenterUrine [id number] 14:45:00* Test Item Value Reference Range Interpretation Comments Urine WBC (test code = 5821-4) 0-5 0-5 [facility] CenterUrine [id number] 14:45:00* Test Item Value Reference Range Interpretation Comments Urine RBC (test code = 84415-5) 0-5 0-5 [facility] Bjgbwbbb7209-23-83 14:45:00* Test Item Value Reference Range Interpretation Comments Urine Bacteria (test code = 76922-0) FEW NONE [facility] CenterUrine Epithelial Sajqk4675-96-62 14:45:00 * Test Item Value Reference Range Interpretation Comments Urine Epithelial Cells (test code = 57095-3) FEW NONE [facility] CenterUrine Ploor6160-12-18 14:42:00* Test Item Value Reference Range Interpretation Comments Urine Color (test code = 5778-6) YELLOW YELLOW [facility] CenterUrine Mdegqwi0824-62-50 14:42:00* Test Item Value Reference Range Interpretation Comments Urine Clarity (test code = 38408-9) CLEAR CLEAR [facility] CenterUrine Specific Kllyrwy7662-06-28 14:42:00 * Test Item Value Reference Range Interpretation Comments Urine Specific Saucier (test code = 5811-5) 1.020 1.010-1.02 5 [facility] CenterUrine [id number] 14:42:00* Test Item Value Reference Range Interpretation Comments Urine pH (test code = 11657-4) 7 5-7 [facility] CenterUrine Leukocyte Ptpgwilq5082-98-68 14:42:00* Test Item Value Reference Range Interpretation Comments Urine Leukocyte Esterase (test code = 5799-2) NEGATIVE NEGATIVE [facility] Pxsqndo9625-46-39 14:42:00* Test Item Value Reference Range Interpretation Comments Urine Nitrite (test code = 11253-4) NEGATIVE NEGATIVE [facility] CenterUrine Zhhjjkf4441-27-38 14:42:00* Test Item Value Reference Range Interpretation Comments Urine Protein (test code = 5804-0) NEGATIVE NEGATIVE [facility] CenterUrine Glucose (UA)2017-10-17 14:42:00* Test Item Value Reference Range Interpretation Comments Urine Glucose (UA) (test code = 2349-9) NEGATIVE NEGATIVE [facility] CenterUrine Xdiasiq1286-65-89 14:42:00* Test Item Value Reference Range Interpretation Comments Urine Ketones (test code = 93073-5) NEGATIVE NEGATIVE [facility] CenterUrine Ziedqxkemnyy5820-41-58 14:42:00* Test Item Value Reference Range Interpretation Comments Urine Urobilinogen (test code = 85246-0) 0.2 0.2-1 [facility] CenterUrine Mtcvgsilj8618-68-66 14:42:00* Test Item Value Reference Range Interpretation Comments Urine Bilirubin (test code = 1978-6) NEGATIVE NEGATIVE [facility] CenterUrine Rhcfp3534-01-61 14:42:00* Test Item Value Reference Range Interpretation Comments Urine Blood (test code = 74610-3) NEGATIVE NEGATIVE [facility] CenterUrine Ehws5730-18-91 14:42:00* Test Item Value Reference Range Interpretation Comments Urine Test (test code = 2106-3) NEGATIVE NEGATIVE [facility] CenterWhite Blood Mdotp9103-44-25 14:39:00* Test Item Value Reference Range Interpretation Comments White Blood Count (test code = 6690-2) 7.97 4.8-10.8 [facility] CenterRed Blood Ndtvx8642-11-69 14:39:00* Test Item Value Reference Range Interpretation Comments Red Blood Count (test code = 789-8) 4.84 3.6-5.1 [facility] CenterHemoglobin2018-05-27 14:39:00* Test Item Value Reference Range Interpretation Comments Hemoglobin (test code = 13223-1) 14.9 12.0-16.0 [facility] CenterHematocrit2018-05-27 14:39:00* Test Item Value Reference Range Interpretation Comments Hematocrit (test code = 4544-3) 42.6 34.2-44.1 [facility] CenterMean Corpuscular Myakns8975-03-15 14:39:00* Test Item Value Reference Range Interpretation Comments Mean Corpuscular Volume (test code = 787-2) 88.0 81-99 [facility] CenterMean Corpuscular Anomcddsvw3964-33-13 14:39:00* Test Item Value Reference Range Interpretation Comments Mean Corpuscular Hemoglobin (test code = 785-6) 30.8 28-32 [facility] CenterMean Corpuscular Hemoglobin Concent 2017-10-17 14:39:00* Test Item Value Reference Range Interpretation Comments Mean Corpuscular Hemoglobin Concent (test code = 786-4) 35.0 31-35 [facility] CenterRed Cell Distribution Xlxjs9152-25-71 14:39:00* Test Item Value Reference Range Interpretation Comments Red Cell Distribution Width (test code = 95057-6) 12.5 11.7 -14.4 [facility] CenterPlatelet Cxzzn4271-47-81 14:39:00* Test Item Value Reference Range Interpretation Comments Platelet Count (test code = 777-3) 344 140-360 [facility] CenterNeutrophils (%) (Auto)2017-10-17 14:39:00 * Test Item Value Reference Range Interpretation Comments Neutrophils (%) (Auto) (test code = 39218-8) 55.5 38.7-80.0 [facility] CenterLymphocytes (%) (Auto)2017-10-17 14:39:00 * Test Item Value Reference Range Interpretation Comments Lymphocytes (%) (Auto) (test code = 736-9) 31.0 18.0-39.1 [facility] CenterMonocytes (%) (Auto)2017-10-17 14:39:00* Test Item Value Reference Range Interpretation Comments Monocytes (%) (Auto) (test code = 5905-5) 8.2 4.4-11.3 [facility] CenterEosinophils (%) (Auto)2017-10-17 14:39:00 * Test Item Value Reference Range Interpretation Comments Eosinophils (%) (Auto) (test code = 713-8) 4.1 0.0-6.0 [facility] CenterBasophils (%) (Auto)2017-10-17 14:39:00* Test Item Value Reference Range Interpretation Comments Basophils (%) (Auto) (test code = 706-2) 0.9 0.0-1.0 [facility] CenterIM GRANULOCYTES %2017-10-17 14:39:00* Test Item Value Reference Range Interpretation Comments IM GRANULOCYTES % (test code = IM GRANULOCYTES %) 0.3 0.0- 1.0 [facility] CenterNeutrophils # (Auto)2017-10-17 14:39:00* Test Item Value Reference Range Interpretation Comments Neutrophils # (Auto) (test code = 751-8) 4.4 2.1-6.9 [facility] CenterLymphocytes # (Auto)2017-10-17 14:39:00* Test Item Value Reference Range Interpretation Comments Lymphocytes # (Auto) (test code = 67850-8) 2.5 1.0-3.2 [facility] CenterMonocytes # (Auto)2017-10-17 14:39:00* Test Item Value Reference Range Interpretation Comments Monocytes # (Auto) (test code = 742-7) 0.7 0.2-0.8 [facility] CenterEosinophils # (Auto)2017-10-17 14:39:00* Test Item Value Reference Range Interpretation Comments Eosinophils # (Auto) (test code = 711-2) 0.3 0.0-0.4 [facility] CenterBasophils # (Auto)2017-10-17 14:39:00* Test Item Value Reference Range Interpretation Comments Basophils # (Auto) (test code = 704-7) 0.1 0.0-0.1 [facility] CenterAbsolute Immature Granulocyte (auto 2017-10-17 14:39:00* Test Item Value Reference Range Interpretation Comments Absolute Immature Granulocyte (auto (erica t code = Absolute Immature Granulocyte (auto) 0.02 0-0.1 [facility] CenterUrine [id number] 14:00:00* Test Item Value Reference Range Interpretation Comments Urine WBC (test code = 5821-4) NONE 0-5 [facility] CenterUrine [id number] 14:00:00* Test Item Value Reference Range Interpretation Comments Urine RBC (test code = 57951-0) NONE 0-5 [facility] CenterUrine Rfwuxuki9441-30-05 14:00:00* Test Item Value Reference Range Interpretation Comments Urine Bacteria (test code = 30190-3) NONE NONE [facility] CenterUrine Epithelial Jlymp7772-63-10 14:00:00 * Test Item Value Reference Range Interpretation Comments Urine Epithelial Cells (test code = 08242-7) FEW NONE [facility] Mndey6562-19-47 14:00:00* Test Item Value Reference Range Interpretation Comments Sodium Level (test code = 2951-2) 136 136-145 [facility] CenterPotassium Pqsor7892-46-73 14:00:00* Test Item Value Reference Range Interpretation Comments Potassium Level (test code = 2823-3) 3.6 3.5-5.1 [facility] CenterChloride Ngafb1022-07-00 14:00:00* Test Item Value Reference Range Interpretation Comments Chloride Level (test code = 2075-0) 103 98-107 [facility] CenterCarbon Dioxide Jitdx1563-67-58 14:00:00* Test Item Value Reference Range Interpretation Comments Carbon Dioxide Level (test code = 2028-9) 25 22-29 [facility] CenterAnion Sar6512-68-33 14:00:00* Test Item Value Reference Range Interpretation Comments Anion Gap (test code = 75833-7) 11.6 8-16 [facility] CenterBlood Urea Jxmjrgpm6587-66-03 14:00:00* Test Item Value Reference Range Interpretation Comments Blood Urea Nitrogen (test code = 3094-0) -5 7-26 L [facility] CenterCreatinine2018-05-13 14:00:00* Test Item Value Reference Range Interpretation Comments Creatinine (test code = 2160-0) 0.67 0.57-1.11 [facility] CenterBUN/Creatinine Aobbb2454-22-24 14:00:00* Test Item Value Reference Range Interpretation Comments BUN/Creatinine Ratio (test code = 3097-3) 7 6-25 [facility] CenterEstimat Glomerular Filtration Rate 2017-10-03 14:00:00* Test Item Value Reference Range Interpretation Comments Estimat Glomerular Filtration Rate (test code = 38924-8) 60- >60 Ranges were taken from the National Kidney Disease Education Program and the [facility] Kidney Foundation literature.Reference ranges:60 or greater: Skmzhd23-23 ( for 3 consecutive months): Chronic kidney disease 15 or less: Kidney failureCH[facility] DallasGlucose Khnob6791-42-19 14:00:00* Test Item Value Reference Range Interpretation Comments Glucose Level (test code = COM5643) 94 74-118 [facility] CenterCalcium Dtejc3266-12-61 14:00:00* Test Item Value Reference Range Interpretation Comments Calcium Level (test code = 71786-3) 10.0 8.4-10.2 [facility] CenterTotal Zklbbkzwd8797-78-52 14:00:00* Test Item Value Reference Range Interpretation Comments Total Bilirubin (test code = 1975-2) 0.4 0.2-1.2 [facility] CenterAspartate Amino Transf (AST/SGOT) 2017-10-03 14:00:00* Test Item Value Reference Range Interpretation Comments Aspartate Amino Transf (AST/SGOT) (test code = Aspartate Amino Transf (AST/SGOT)) 10 5-34 [facility] CenterAlanine Aminotransferase (ALT/SGPT) 2017-10-03 14:00:00* Test Item Value Reference Range Interpretation Comments Alanine Aminotransferase (ALT/SGPT) (test code = 1742-6) 25 0-55 [facility] CenterTotal Lgrogzg7262-17-85 14:00:00* Test Item Value Reference Range Interpretation Comments Total Protein (test code = 2885-2) 7.0 6.5-8.1 [facility] CenterAlbumin2018-05-13 14:00:00* Test Item Value Reference Range Interpretation Comments Albumin (test code = 1751-7) 3.8 3.5-5.0 [facility] CenterGlobulin2018-05-13 14:00:00* Test Item Value Reference Range Interpretation Comments Globulin (test code = 53869-6) 3.2 2.3-3.5 [facility] CenterAlbumin/Globulin Msozo7715-27-53 14:00:00 * Test Item Value Reference Range Interpretation Comments Albumin/Globulin Ratio (test code = 1759-0) 1.2 0.8-2.0 [facility] CenterAlkaline Hxhkordafry8129-21-81 14:00:00* Test Item Value Reference Range Interpretation Comments Alkaline Phosphatase (test code = 6768-6) 73 40-150 [facility] CenterAmylase Islzy4720-83-13 14:00:00* Test Item Value Reference Range Interpretation Comments Amylase Level (test code = 1798-8) 26 25-125 [facility] CenterLipase2018-05-13 14:00:00* Test Item Value Reference Range Interpretation Comments Lipase (test code = 3040-3) 8 8-78 [facility] CenterAmylase Qdvdu0585-94-81 14:00:00* Test Item Value Reference Range Interpretation Comments Amylase Level (test code = 1798-8) 26 25-125 [facility] CenterUrine Ahim4073-21-88 13:50:00* Test Item Value Reference Range Interpretation Comments Urine Test (test code = 2106-3) NEGATIVE NEGATIVE [facility] CenterUrine Kscho7378-87-91 13:49:00* Test Item Value Reference Range Interpretation Comments Urine Color (test code = 5778-6) YELLOW YELLOW [facility] CenterUrine Vwhasgl1711-68-21 13:49:00* Test Item Value Reference Range Interpretation Comments Urine Clarity (test code = 06232-3) CLEAR CLEAR [facility] CenterUrine Specific Vinhvwg1536-83-85 13:49:00 * Test Item Value Reference Range Interpretation Comments Urine Specific [place] (test code = 5811-5) 1.005 1.010-1.02 5 L [facility] CenterUrine cK3889-25-39 13:49:00* Test Item Value Reference Range Interpretation Comments Urine pH (test code = 58272-4) 6 5-7 [facility] CenterUrine Leukocyte Xsgvsyln9107-68-07 13:49:00* Test Item Value Reference Range Interpretation Comments Urine Leukocyte Esterase (test code = 5799-2) NEGATIVE NEGATIVE [facility] Wopqpei2759-50-99 13:49:00* Test Item Value Reference Range Interpretation Comments Urine Nitrite (test code = 03844-4) NEGATIVE NEGATIVE [facility] Uxigmde9469-38-92 13:49:00* Test Item Value Reference Range Interpretation Comments Urine Protein (test code = 5804-0) NEGATIVE NEGATIVE [facility] Glucose (UA)2017-10-03 13:49:00* Test Item Value Reference Range Interpretation Comments Urine Glucose (UA) (test code = 2349-9) NEGATIVE NEGATIVE [facility] CenterU[facility] Ircnekd7156-36-34 13:49:00* Test Item Value Reference Range Interpretation Comments Urine Ketones (test code = 02172-0) NEGATIVE NEGATIVE [facility] Jhaymlzkjlas6554-82-48 13:49:00* Test Item Value Reference Range Interpretation Comments Urine Urobilinogen (test code = 20193-5) 0.2 0.2-1 [facility] CenterU[facility] Zbsanwmqw6588-33-30 13:49:00* Test Item Value Reference Range Interpretation Comments Urine Bilirubin (test code = 1978-6) NEGATIVE NEGATIVE [facility] CenterUrine Zwojg7704-27-90 13:49:00* Test Item Value Reference Range Interpretation Comments Urine Blood (test code = 47087-1) NEGATIVE NEGATIVE [facility] CenterWhite Blood Pnywh1062-97-12 13:43:00* Test Item Value Reference Range Interpretation Comments White Blood Count (test code = 6690-2) 9.34 4.8-10.8 [facility] CenterRed Blood Dpuii8895-40-87 13:43:00* Test Item Value Reference Range Interpretation Comments Red Blood Count (test code = 789-8) 4.61 3.6-5.1 [facility] CenterHemoglobin2018-05-13 13:43:00* Test Item Value Reference Range Interpretation Comments Hemoglobin (test code = 76142-5) 14.2 12.0-16.0 [facility] CenterHematocrit2018-05-13 13:43:00* Test Item Value Reference Range Interpretation Comments Hematocrit (test code = 4544-3) 41.5 34.2-44.1 [facility] CenterMean Corpuscular Jqegow0452-34-21 13:43:00* Test Item Value Reference Range Interpretation Comments Mean Corpuscular Volume (test code = 787-2) 90.0 81-99 [facility] CenterMean Corpuscular Dbhsuugcsu5343-22-77 13:43:00* Test Item Value Reference Range Interpretation Comments Mean Corpuscular Hemoglobin (test code = 785-6) 30.8 28-32 [facility] CenterMean Corpuscular Hemoglobin Concent 2017-10-03 13:43:00* Test Item Value Reference Range Interpretation Comments Mean Corpuscular Hemoglobin Concent (test code = 786-4) 34.2 31-35 [facility] CenterRed Cell Distribution Qrdtx7815-38-43 13:43:00* Test Item Value Reference Range Interpretation Comments Red Cell Distribution Width (test code = 29401-2) 12.9 11.7 -14.4 [facility] CenterPlatelet Jjzfb1116-22-06 13:43:00* Test Item Value Reference Range Interpretation Comments Platelet Count (test code = 777-3) 327 140-360 [facility] CenterNeutrophils (%) (Auto)2017-10-03 13:43:00 * Test Item Value Reference Range Interpretation Comments Neutrophils (%) (Auto) (test code = 90986-1) 70.3 38.7-80.0 [facility] CenterLymphocytes (%) (Auto)2017-10-03 13:43:00 * Test Item Value Reference Range Interpretation Comments Lymphocytes (%) (Auto) (test code = 736-9) 20.4 18.0-39.1 [facility] CenterMonocytes (%) (Auto)2017-10-03 13:43:00* Test Item Value Reference Range Interpretation Comments Monocytes (%) (Auto) (test code = 5905-5) 7.1 4.4-11.3 [facility] CenterEosinophils (%) (Auto)2017-10-03 13:43:00 * Test Item Value Reference Range Interpretation Comments Eosinophils (%) (Auto) (test code = 713-8) 1.6 0.0-6.0 [facility] CenterBasophils (%) (Auto)2017-10-03 13:43:00* Test Item Value Reference Range Interpretation Comments Basophils (%) (Auto) (test code = 706-2) 0.4 0.0-1.0 [facility] CenterIM GRANULOCYTES %2017-10-03 13:43:00* Test Item Value Reference Range Interpretation Comments IM GRANULOCYTES % (test code = IM GRANULOCYTES %) 0.2 0.0- 1.0 [facility] CenterNeutrophils # (Auto)2017-10-03 13:43:00* Test Item Value Reference Range Interpretation Comments Neutrophils # (Auto) (test code = 751-8) 6.6 2.1-6.9 [facility] CenterLymphocytes # (Auto)2017-10-03 13:43:00* Test Item Value Reference Range Interpretation Comments Lymphocytes # (Auto) (test code = 30741-7) 1.9 1.0-3.2 [facility] CenterMonocytes # (Auto)2017-10-03 13:43:00* Test Item Value Reference Range Interpretation Comments Monocytes # (Auto) (test code = 742-7) 0.7 0.2-0.8 [facility] CenterEosinophils # (Auto)2017-10-03 13:43:00* Test Item Value Reference Range Interpretation Comments Eosinophils # (Auto) (test code = 711-2) 0.2 0.0-0.4 [facility] CenterBasophils # (Auto)2017-10-03 13:43:00* Test Item Value Reference Range Interpretation Comments Basophils # (Auto) (test code = 704-7) 0.0 0.0-0.1 [facility] CenterAbsolute Immature Granulocyte (auto 2017-10-03 13:43:00* Test Item Value Reference Range Interpretation Comments Absolute Immature Granulocyte (auto (erica t code = Absolute Immature Granulocyte (auto) 0.02 0-0.1 [facility] CenterFL, IVTC0971-82-35 07:52:00Reason for exam:->Bile leakIs the patient ?->NoWhen was patient's last menstrual cycle?->08/29/17INAL REPORT ERCP 8 views 09/28/2017 at 1624 CLINICAL HISTORY: Instrument localization COMPARISON: None available IMPRESSION: Please correlate imaging report findings with the procedure note prepared by Dr. Lin, as an intra-procedure imaging consultation was not requested. Reported fluoroscopy time: 1 minute, 39 seconds. Signed: Corey Ohara Verified Date/Time: 09/29/2017 07:52:59 Reading Location: [facility] Radiology Reading Room Blood Ksfxory7560-45-90 09:19:00* Test Item Value Reference Range Interpretation Comments Blood Culture (test code = 27724313) NO GROWTH AFTER 5 DAYS, FINAL REPORT [facility] CenterBlood Yuhhwxs1218-26-55 09:19:00* Test Item Value Reference Range Interpretation Comments Blood Culture (test code = 92099079) NO GROWTH AFTER 5 DAYS, [facility] Danggff5287[facility]42-33 09:19:00* Test Item Value Reference Range Interpretation Comments Blood Culture (test code = 80892640) NO GROWTH AFTER 5 DAYS, [facility]PORT [facility] Dmmnx8052-85-11 07:31:00* Test Item Value Reference Range Interpretation Comments Sodium Level (test code = 2951-2) 139 136-145 [facility] CenterPotassium Mckdt2068-98-52 07:31:00* Test Item Value Reference Range Interpretation Comments Potassium Level (test code = 2823-3) 3.7 3.5-5.1 [facility] CenterChloride Etjhl6435-22-82 07:31:00* Test Item Value Reference Range Interpretation Comments Chloride Level (test code = 2075-0) 108 98-107 H [facility] CenterCarbon Dioxide Tsqxc8433-10-19 07:31:00* Test Item Value Reference Range Interpretation Comments Carbon Dioxide Level (test code = 2028-9) 25 22-29 [facility] CenterAnion Nem2127-30-22 07:31:00* Test Item Value Reference Range Interpretation Comments Anion Gap (test code = 87713-6) 9.7 8-16 [facility] CenterBlood Urea Zeiutras6183-26-27 07:31:00* Test Item Value Reference Range Interpretation Comments Blood Urea Nitrogen (test code = 3094-0) 11 7-26 [facility] CenterCreatinine2018-04-05 07:31:00* Test Item Value Reference Range Interpretation Comments Creatinine (test code = 2160-0) 0.68 0.57-1.11 [facility] CenterBUN/Creatinine Oaikl9938-05-26 07:31:00* Test Item Value Reference Range Interpretation Comments BUN/Creatinine Ratio (test code = 3097-3) 16 6-25 [facility] CenterEstimat Glomerular Filtration Rate 2017-08-26 07:31:00* Test Item Value Reference Range Interpretation Comments Estimat Glomerular Filtration Rate (test code = 70295-1) 60- >60 Ranges were taken from the National Kidney Disease Education Program and the [facility] literature.Reference ranges:60 or greater: Awcosb83-10 ( for 3 consecutive months): Chronic kidney disease 15 or less: Kidney failureLamb Healthcare CenterGlucose Ohwve5243-13-71 07:31:00* Test Item Value Reference Range Interpretation Comments Glucose Level (test code = ZBH2073) 100 74-118 [facility] CenterCalcium Iewif3978-86-41 07:31:00* Test Item Value Reference Range Interpretation Comments Calcium Level (test code = 16925-5) 8.7 8.4-10.2 [facility] CenterTotal Xfrbtbfbt2958-04-79 07:31:00* Test Item Value Reference Range Interpretation Comments Total Bilirubin (test code = 1975-2) 0.5 0.2-1.2 [facility] CenterAspartate Amino Transf (AST/SGOT) 2017-08-26 07:31:00* Test Item Value Reference Range Interpretation Comments Aspartate Amino Transf (AST/SGOT) (test code = Aspartate Amino Transf (AST/SGOT)) 10 5-34 [facility] CenterAlanine Aminotransferase (ALT/SGPT) 2017-08-26 07:31:00* Test Item Value Reference Range Interpretation Comments Alanine Aminotransferase (ALT/SGPT) (test code = 1742-6) 48 0-55 [facility] CenterTotal Erkmgex7744-08-43 07:31:00* Test Item Value Reference Range Interpretation Comments Total Protein (test code = 2885-2) 4.9 6.5-8.1 L [facility] CenterAlbumin2018-04-05 07:31:00* Test Item Value Reference Range Interpretation Comments Albumin (test code = 1751-7) 2.5 3.5-5.0 L [facility] CenterGlobulin2018-04-05 07:31:00* Test Item Value Reference Range Interpretation Comments Globulin (test code = 69399-1) 2.4 2.3-3.5 [facility] CenterAlbumin/Globulin Ahikw4256-09-27 07:31:00 * Test Item Value Reference Range Interpretation Comments Albumin/Globulin Ratio (test code = 1759-0) 1.0 0.8-2.0 [facility] CenterAlkaline Ectpazdolwz1090-36-46 07:31:00* Test Item Value Reference Range Interpretation Comments Alkaline Phosphatase (test code = 6768-6) 99 40-150 [facility] CenterAmylase Ywgou5781-28-95 07:31:00* Test Item Value Reference Range Interpretation Comments Amylase Level (test code = 1798-8) 23 25-125 L [facility] CenterWhite Blood Nnxpk7178-44-37 07:14:00* Test Item Value Reference Range Interpretation Comments White Blood Count (test code = 6690-2) 5.83 4.8-10.8 [facility] CenterRed Blood Yyous3339-04-03 07:14:00* Test Item Value Reference Range Interpretation Comments Red Blood Count (test code = 789-8) 3.18 3.6-5.1 L [facility] CenterHemoglobin2018-04-05 07:14:00* Test Item Value Reference Range Interpretation Comments Hemoglobin (test code = 96017-7) 9.8 12.0-16.0 L [facility] CenterHematocrit2018-04-05 07:14:00* Test Item Value Reference Range Interpretation Comments Hematocrit (test code = 4544-3) 29.2 34.2-44.1 L [facility] CenterMean Corpuscular Bpgixx2795-12-98 07:14:00* Test Item Value Reference Range Interpretation Comments Mean Corpuscular Volume (test code = 787-2) 91.8 81-99 [facility] CenterMean Corpuscular Kusjtwmkea8474-74-95 07:14:00* Test Item Value Reference Range Interpretation Comments Mean Corpuscular Hemoglobin (test code = 785-6) 30.8 28-32 [facility] CenterMean Corpuscular Hemoglobin Concent 2017-08-26 07:14:00* Test Item Value Reference Range Interpretation Comments Mean Corpuscular Hemoglobin Concent (test code = 786-4) 33.6 31-35 [facility] CenterRed Cell Distribution Gmgna4888-07-06 07:14:00* Test Item Value Reference Range Interpretation Comments Red Cell Distribution Width (test code = 12590-8) 12.1 11.7 -14.4 [facility] CenterPlatelet Zuwcw6523-29-22 07:14:00* Test Item Value Reference Range Interpretation Comments Platelet Count (test code = 777-3) 336 140-360 [facility] CenterNeutrophils (%) (Auto)2017-08-26 07:14:00 * Test Item Value Reference Range Interpretation Comments Neutrophils (%) (Auto) (test code = 23524-2) 56.9 38.7-80.0 [facility] CenterLymphocytes (%) (Auto)2017-08-26 07:14:00 * Test Item Value Reference Range Interpretation Comments Lymphocytes (%) (Auto) (test code = 736-9) 27.4 18.0-39.1 [facility] CenterMonocytes (%) (Auto)2017-08-26 07:14:00* Test Item Value Reference Range Interpretation Comments Monocytes (%) (Auto) (test code = 5905-5) 9.6 4.4-11.3 [facility] CenterEosinophils (%) (Auto)2017-08-26 07:14:00 * Test Item Value Reference Range Interpretation Comments Eosinophils (%) (Auto) (test code = 713-8) 5.0 0.0-6.0 [facility] CenterBasophils (%) (Auto)2017-08-26 07:14:00* Test Item Value Reference Range Interpretation Comments Basophils (%) (Auto) (test code = 706-2) 0.9 0.0-1.0 [facility] CenterIM GRANULOCYTES %2017-08-26 07:14:00* Test Item Value Reference Range Interpretation Comments IM GRANULOCYTES % (test code = IM GRANULOCYTES %) 0.2 0.0- 1.0 [facility] CenterNeutrophils # (Auto)2017-08-26 07:14:00* Test Item Value Reference Range Interpretation Comments Neutrophils # (Auto) (test code = 751-8) 3.3 2.1-6.9 [facility] CenterLymphocytes # (Auto)2017-08-26 07:14:00* Test Item Value Reference Range Interpretation Comments Lymphocytes # (Auto) (test code = 16586-0) 1.6 1.0-3.2 [facility] CenterMonocytes # (Auto)2017-08-26 07:14:00* Test Item Value Reference Range Interpretation Comments Monocytes # (Auto) (test code = 742-7) 0.6 0.2-0.8 [facility] CenterEosinophils # (Auto)2017-08-26 07:14:00* Test Item Value Reference Range Interpretation Comments Eosinophils # (Auto) (test code = 711-2) 0.3 0.0-0.4 [facility] CenterBasophils # (Auto)2017-08-26 07:14:00* Test Item Value Reference Range Interpretation Comments Basophils # (Auto) (test code = 704-7) 0.1 0.0-0.1 [facility] CenterAbsolute Immature Granulocyte (auto 2017-08-26 07:14:00* Test Item Value Reference Range Interpretation Comments Absolute Immature Granulocyte (auto (erica t code = Absolute Immature Granulocyte (auto) 0.01 0-0.1 [facility] CenterUrine MJP9977-67-41 07:45:00* Test Item Value Reference Range Interpretation Comments Urine WBC (test code = 5821-4) 0-5 0-5 [facility] CenterUrine FNE0947-94-82 07:45:00* Test Item Value Reference Range Interpretation Comments Urine RBC (test code = 24989-8) 0-5 0-5 [facility] CenterUrine Kjvnyyvv4464-06-33 07:45:00* Test Item Value Reference Range Interpretation Comments Urine Bacteria (test code = 60311-9) MODERATE NONE H [facility] CenterUrine Epithelial Ozfvl5943-10-06 07:45:00 * Test Item Value Reference Range Interpretation Comments Urine Epithelial Cells (test code = 26058-7) MANY NONE [facility] CenterUrine Mdxps1837-62-01 07:33:00* Test Item Value Reference Range Interpretation Comments Urine Color (test code = 5778-6) KB YELLOW [facility] CenterUrine Ybaysmk9171-79-59 07:33:00* Test Item Value Reference Range Interpretation Comments Urine Clarity (test code = 34455-3) HAZY CLEAR [facility] CenterUrine Specific Sgyrcbp5656-16-49 07:33:00 * Test Item Value Reference Range Interpretation Comments Urine Specific [place] (test code = 5811-5) 1.020 1.010-1.02 5 [facility] CenterUrine mA9253-63-94 07:33:00* Test Item Value Reference Range Interpretation Comments Urine pH (test code = 34799-8) 7 5-7 [facility] Leukocyte Vksxttby7073-19-77 07:33:00* Test Item Value Reference Range Interpretation Comments Urine Leukocyte Esterase (test code = 5799-2) NEGATIVE NEGATIVE [facility] Cenaeqz1553-03-07 07:33:00* Test Item Value Reference Range Interpretation Comments Urine Nitrite (test code = 10090-0) NEGATIVE NEGATIVE [facility] Micdxxi6486-06-52 07:33:00* Test Item Value Reference Range Interpretation Comments Urine Protein (test code = 5804-0) NEGATIVE NEGATIVE [facility] Glucose (UA)2017-08-22 07:33:00* Test Item Value Reference Range Interpretation Comments Urine Glucose (UA) (test code = 2349-9) NEGATIVE NEGATIVE [facility] Phawuhi8375-16-65 07:33:00* Test Item Value Reference Range Interpretation Comments Urine Ketones (test code = 01597-8) NEGATIVE NEGATIVE [facility] Hkhxsqchcqka5843-28-59 07:33:00* Test Item Value Reference Range Interpretation Comments Urine Urobilinogen (test code = 17136-6) 0.2 0.2-1 [facility] Qxhjqivhv2398-21-05 07:33:00* Test Item Value Reference Range Interpretation Comments Urine Bilirubin (test code = 1978-6) NEGATIVE NEGATIVE [facility] Ieczd7634-71-85 07:33:00* Test Item Value Reference Range Interpretation Comments Urine Blood (test code = 30370-3) TRACE NEGATIVE H [facility] CenterMagnesium Tgxdx3400-73-12 07:12:00* Test Item Value Reference Range Interpretation Comments Magnesium Level (test code = 76570-1) 1.9 1.3-2.1 [facility] CenterCreatine Nglpsf4997-16-82 07:12:00* Test Item Value Reference Range Interpretation Comments Creatine Kinase (test code = 2157-6) 32 29-168 [facility] CenterCreatine Kinase TF7667-66-54 07:12:00* Test Item Value Reference Range Interpretation Comments Creatine Kinase MB (test code = 21548-1) 0.40 0-5.0 [facility] CenterTroponin V7098-10-28 07:12:00* Test Item Value Reference Range Interpretation Comments Troponin I (test code = LGG9809) -0.001 0-0.300 [facility] CenterLipase2018-04-01 07:12:00* Test Item Value Reference Range Interpretation Comments Lipase (test code = 3040-3) 38 8-78 [facility] CenterMagnesium Oxchn2751-74-89 07:12:00* Test Item Value Reference Range Interpretation Comments Magnesium Level (test code = 07303-3) 1.9 1.3-2.1 [facility] CenterCreatine Jujpth6037-89-34 07:12:00* Test Item Value Reference Range Interpretation Comments Creatine Kinase (test code = 2157-6) 32 29-168 [facility] CenterCreatine Kinase YO6685-73-51 07:12:00* Test Item Value Reference Range Interpretation Comments Creatine Kinase MB (test code = 74481-6) 0.40 0-5.0 [facility] CenterTroponin U7509-97-20 07:12:00* Test Item Value Reference Range Interpretation Comments Troponin I (test code = MVG6353) -0.001 0-0.300 [facility] CenterMagnesium Fvxuf5823-10-26 07:12:00* Test Item Value Reference Range Interpretation Comments Magnesium Level (test code = 12533-1) 1.9 1.3-2.1 [facility] CenterProthrombin Lhbi9651-20-65 06:42:00* Test Item Value Reference Range Interpretation Comments Prothrombin Time (test code = 5902-2) 12.3 11.9-14.5 [facility] CenterProthromb Time International Ratio 2017-08-22 06:42:00* Test Item Value Reference Range Interpretation Comments Prothromb Time International Ratio (test code = 6301-6) 0.99 Oral Anticoagulant Therapy INR Values:1. Low Intensity Therapy 1.5 - 2.02 . Moderate Intensity Therapy 2.0 - 3.03. High Intensity Therapy(1) 2.5 - 3. 54. High Intensity Therapy(2) 3.0 - 4.05. Panic Value INR > 5.0 [facility] CenterActivated Partial Thromboplast Time 2017-08-22 06:42:00* Test Item Value Reference Range Interpretation Comments Activated Partial Thromboplast Time (test code = 35473-9) 31.9 23.8-35.5 [facility] CenterProthrombin Ojiy8803-61-26 06:42:00* Test Item Value Reference Range Interpretation Comments Prothrombin Time (test code = 5902-2) 12.3 11.9-14.5 [facility] CenterProthromb Time International Ratio 2017-08-22 06:42:00* Test Item Value Reference Range Interpretation Comments Prothromb Time International Ratio (test code = 6301-6) 0.99 Oral Anticoagulant Therapy INR Values:1. Low Intensity Therapy 1.5 - 2.02 . Moderate Intensity Therapy 2.0 - 3.03. High Intensity Therapy(1) 2.5 - 3. 54. High Intensity Therapy(2) 3.0 - 4.05. Panic Value INR > 5.0 [facility] CenterActivated Partial Thromboplast Time 2017-08-22 06:42:00* Test Item Value Reference Range Interpretation Comments Activated Partial Thromboplast Time (test code = 78513-1) 31.9 23.8-35.5 [facility] CenterProthrombin Bnfb0779-12-45 06:42:00* Test Item Value Reference Range Interpretation Comments Prothrombin Time (test code = 5902-2) 12.3 11.9-14.5 [facility] CenterProthromb Time International Ratio 2017-08-22 06:42:00* Test Item Value Reference Range Interpretation Comments Prothromb Time International Ratio (test code = 6301-6) 0.99 Oral Anticoagulant Therapy INR Values:1. Low Intensity Therapy 1.5 - 2.02 . Moderate Intensity Therapy 2.0 - 3.03. High Intensity Therapy(1) 2.5 - 3. 54. High Intensity Therapy(2) 3.0 - 4.05. Panic Value INR > 5.0 [facility] CenterActivated Partial Thromboplast Time 2017-08-22 06:42:00* Test Item Value Reference Range Interpretation Comments Activated Partial Thromboplast Time (test code = 63500-0) 31.9 23.8-35.5 [facility] Ibpsc2026-75-42 08:01:00* Test Item Value Reference Range Interpretation Comments Sodium Level (test code = 2951-2) 139 136-145 [facility] CenterPotassium Ozhhc5395-55-45 08:01:00* Test Item Value Reference Range Interpretation Comments Potassium Level (test code = 2823-3) 3.7 3.5-5.1 [facility] CenterChloride Sdpmz9385-09-27 08:01:00* Test Item Value Reference Range Interpretation Comments Chloride Level (test code = 2075-0) 108 98-107 H [facility] CenterCarbon Dioxide Ahoyd4839-54-84 08:01:00* Test Item Value Reference Range Interpretation Comments Carbon Dioxide Level (test code = 2028-9) 25 22-29 [facility] CenterAnion Pma9813-52-54 08:01:00* Test Item Value Reference Range Interpretation Comments Anion Gap (test code = 78496-0) 9.7 8-16 [facility] CenterBlood Urea Uuqyivpu7681-27-57 08:01:00* Test Item Value Reference Range Interpretation Comments Blood Urea Nitrogen (test code = 3094-0) 10 7-26 [facility] CenterCreatinine2018-03-31 08:01:00* Test Item Value Reference Range Interpretation Comments Creatinine (test code = 2160-0) 0.64 0.57-1.11 [facility] CenterBUN/Creatinine Prlmm0123-49-69 08:01:00* Test Item Value Reference Range Interpretation Comments BUN/Creatinine Ratio (test code = 3097-3) 16 6-25 [facility] CenterEstimat Glomerular Filtration Rate 2017-08-21 08:01:00* Test Item Value Reference Range Interpretation Comments Estimat Glomerular Filtration Rate (test code = 09994-4) 60- >60 Ranges were taken from the National Kidney Disease Education Program and the [facility] literature.Reference ranges:60 or greater: Vgkchs76-23 ( for 3 consecutive months): Chronic kidney disease 15 or less: Kidney failureCHI Texas Health Presbyterian DallasGlucose Jbsjc4928-89-74 08:01:00* Test Item Value Reference Range Interpretation Comments Glucose Level (test code = KWR5251) 114 74-118 [facility] CenterCalcium Nnapc6223-19-11 08:01:00* Test Item Value Reference Range Interpretation Comments Calcium Level (test code = 26538-8) 8.9 8.4-10.2 [facility] CenterTotal Tbbohwpuh2153-02-06 08:01:00* Test Item Value Reference Range Interpretation Comments Total Bilirubin (test code = 1975-2) 0.3 0.2-1.2 [facility] CenterAspartate Amino Transf (AST/SGOT) 2017-08-21 08:01:00* Test Item Value Reference Range Interpretation Comments Aspartate Amino Transf (AST/SGOT) (test code = Aspartate Amino Transf (AST/SGOT)) 16 5-34 [facility] CenterAlanine Aminotransferase (ALT/SGPT) 2017-08-21 08:01:00* Test Item Value Reference Range Interpretation Comments Alanine Aminotransferase (ALT/SGPT) (test code = 1742-6) 229 0-55 H [facility] CenterTotal Tbvbdoh9461-17-88 08:01:00* Test Item Value Reference Range Interpretation Comments Total Protein (test code = 2885-2) 5.4 6.5-8.1 L [facility] CenterAlbumin2018-03-31 08:01:00* Test Item Value Reference Range Interpretation Comments Albumin (test code = 1751-7) 3.0 3.5-5.0 L [facility] CenterGlobulin2018-03-31 08:01:00* Test Item Value Reference Range Interpretation Comments Globulin (test code = 81665-2) 2.4 2.3-3.5 [facility] CenterAlbumin/Globulin Kfldx0214-21-50 08:01:00 * Test Item Value Reference Range Interpretation Comments Albumin/Globulin Ratio (test code = 1759-0) 1.3 0.8-2.0 [facility] CenterAlkaline Gdcilutckfs3876-31-67 08:01:00* Test Item Value Reference Range Interpretation Comments Alkaline Phosphatase (test code = 6768-6) 145 40-150 [facility] CenterWhite Blood Lxsri1655-71-89 07:44:00* Test Item Value Reference Range Interpretation Comments White Blood Count (test code = 6690-2) 8.33 4.8-10.8 [facility] CenterRed Blood Nxquw5719-51-19 07:44:00* Test Item Value Reference Range Interpretation Comments Red Blood Count (test code = 789-8) 3.81 3.6-5.1 [facility] CenterHemoglobin2018-03-31 07:44:00* Test Item Value Reference Range Interpretation Comments Hemoglobin (test code = 58559-8) 11.8 12.0-16.0 L [facility] CenterHematocrit2018-03-31 07:44:00* Test Item Value Reference Range Interpretation Comments Hematocrit (test code = 4544-3) 35.2 34.2-44.1 [facility] CenterMean Corpuscular Gxswtx5882-51-00 07:44:00* Test Item Value Reference Range Interpretation Comments Mean Corpuscular Volume (test code = 787-2) 92.4 81-99 [facility] CenterMean Corpuscular Ldsqleuabx8655-68-19 07:44:00* Test Item Value Reference Range Interpretation Comments Mean Corpuscular Hemoglobin (test code = 785-6) 31.0 28-32 [facility] CenterMean Corpuscular Hemoglobin Concent 2017-08-21 07:44:00* Test Item Value Reference Range Interpretation Comments Mean Corpuscular Hemoglobin Concent (test code = 786-4) 33.5 31-35 [facility] CenterRed Cell Distribution Czmvu1858-83-38 07:44:00* Test Item Value Reference Range Interpretation Comments Red Cell Distribution Width (test code = 23541-5) 12.5 11.7 -14.4 [facility] CenterPlatelet Fsxdk7110-96-50 07:44:00* Test Item Value Reference Range Interpretation Comments Platelet Count (test code = 777-3) 278 140-360 [facility] CenterNeutrophils (%) (Auto)2017-08-21 07:44:00 * Test Item Value Reference Range Interpretation Comments Neutrophils (%) (Auto) (test code = 98091-0) 61.3 38.7-80.0 [facility] CenterLymphocytes (%) (Auto)2017-08-21 07:44:00 * Test Item Value Reference Range Interpretation Comments Lymphocytes (%) (Auto) (test code = 736-9) 24.6 18.0-39.1 [facility] CenterMonocytes (%) (Auto)2017-08-21 07:44:00* Test Item Value Reference Range Interpretation Comments Monocytes (%) (Auto) (test code = 5905-5) 8.4 4.4-11.3 [facility] CenterEosinophils (%) (Auto)2017-08-21 07:44:00 * Test Item Value Reference Range Interpretation Comments Eosinophils (%) (Auto) (test code = 713-8) 4.9 0.0-6.0 [facility] CenterBasophils (%) (Auto)2017-08-21 07:44:00* Test Item Value Reference Range Interpretation Comments Basophils (%) (Auto) (test code = 706-2) 0.6 0.0-1.0 [facility] CenterIM GRANULOCYTES %2017-08-21 07:44:00* Test Item Value Reference Range Interpretation Comments IM GRANULOCYTES % (test code = IM GRANULOCYTES %) 0.2 0.0- 1.0 [facility] CenterNeutrophils # (Auto)2017-08-21 07:44:00* Test Item Value Reference Range Interpretation Comments Neutrophils # (Auto) (test code = 751-8) 5.1 2.1-6.9 [facility] CenterLymphocytes # (Auto)2017-08-21 07:44:00* Test Item Value Reference Range Interpretation Comments Lymphocytes # (Auto) (test code = 94451-5) 2.1 1.0-3.2 [facility] CenterMonocytes # (Auto)2017-08-21 07:44:00* Test Item Value Reference Range Interpretation Comments Monocytes # (Auto) (test code = 742-7) 0.7 0.2-0.8 [facility] CenterEosinophils # (Auto)2017-08-21 07:44:00* Test Item Value Reference Range Interpretation Comments Eosinophils # (Auto) (test code = 711-2) 0.4 0.0-0.4 [facility] CenterBasophils # (Auto)2017-08-21 07:44:00* Test Item Value Reference Range Interpretation Comments Basophils # (Auto) (test code = 704-7) 0.1 0.0-0.1 [facility] CenterAbsolute Immature Granulocyte (auto 2017-08-21 07:44:00* Test Item Value Reference Range Interpretation Comments Absolute Immature Granulocyte (auto (erica t code = Absolute Immature Granulocyte (auto) 0.02 0-0.1 [facility] CenterBlood Gwwqbtt7209-21-91 16:43:00* Test Item Value Reference Range Interpretation Comments Blood Culture (test code = 81380121) NO GROWTH AFTER 24 HOURS [facility] CenterCreatine Kinase GB7531-23-26 17:37:00* Test Item Value Reference Range Interpretation Comments Creatine Kinase MB (test code = 02715-9) 0.30 0-5.0 [facility] CenterTroponin Q7770-93-37 17:37:00* Test Item Value Reference Range Interpretation Comments Troponin I (test code = LKQ0815) -0.001 0-0.300 [facility] CenterCreatine Qktccd4114-26-45 17:29:00* Test Item Value Reference Range Interpretation Comments Creatine Kinase (test code = 2157-6) 63 29-168 [facility] CenterLactic Acid Qtdyp1215-24-20 17:15:00* Test Item Value Reference Range Interpretation Comments Lactic Acid Level (test code = Lactic Acid Level) 10.0 4.5- 19.8 [facility] CenterLactic Acid Wrkxy2640-30-11 17:15:00* Test Item Value Reference Range Interpretation Comments Lactic Acid Level (test code = Lactic Acid Level) 10.0 4.5- 19.8 [facility] CenterLactic Acid Mmnvr1273-19-76 17:15:00* Test Item Value Reference Range Interpretation Comments Lactic Acid Level (test code = Lactic Acid Level) 10.0 4.5- 19.8 [facility] CenterLactic Acid Jtbdo5773-46-69 17:15:00* Test Item Value Reference Range Interpretation Comments Lactic Acid Level (test code = Lactic Acid Level) 10.0 4.5- 19.8 [facility] CenterUrine KVK3244-83-64 16:40:00* Test Item Value Reference Range Interpretation Comments Urine WBC (test code = 5821-4) 0-5 0-5 [facility] CenterUrine ERB6028-14-70 16:40:00* Test Item Value Reference Range Interpretation Comments Urine RBC (test code = 66455-7) 0-5 0-5 [facility] CenterUrine Znpyjgut2954-06-57 16:40:00* Test Item Value Reference Range Interpretation Comments Urine Bacteria (test code = 22230-4) FEW NONE [facility] CenterUrine Epithelial Uqtcj9316-66-63 16:40:00 * Test Item Value Reference Range Interpretation Comments Urine Epithelial Cells (test code = 15282-0) MANY NONE [facility] CenterAmylase Ecabs5805-42-29 16:40:00* Test Item Value Reference Range Interpretation Comments Amylase Level (test code = 1798-8) 28 25-125 [facility] CenterLipase2018-03-29 16:40:00* Test Item Value Reference Range Interpretation Comments Lipase (test code = 3040-3) 16 8-78 [facility] CenterUrine Rntb6161-60-27 16:30:00* Test Item Value Reference Range Interpretation Comments Urine Test (test code = 2106-3) NEGATIVE NEGATIVE [facility] CenterUrine Flcg0861-82-24 16:30:00* Test Item Value Reference Range Interpretation Comments Urine Test (test code = 2106-3) NEGATIVE NEGATIVE [facility] CenterUrine Ixepa0368-95-04 16:28:00* Test Item Value Reference Range Interpretation Comments Urine Color (test code = 5778-6) YELLOW YELLOW [facility] CenterUrine Ayfnqbf4088-52-06 16:28:00* Test Item Value Reference Range Interpretation Comments Urine Clarity (test code = 60346-6) SL CLOUDY CLEAR [facility] CenterUrine Specific Cwvmtcn3942-63-92 16:28:00 * Test Item Value Reference Range Interpretation Comments Urine Specific [place]ier (test code = 5811-5) 1.015 1.010-1.02 5 [facility] CenterUrine kA4374-02-92 16:28:00* Test Item Value Reference Range Interpretation Comments Urine pH (test code = 45774-2) 8 5-7 H [facility] CenterUrine Leukocyte Xqvwiifr1979 16:28:00* Test Item Value Reference Range Interpretation Comments Urine Leukocyte Esterase (test code = 5799-2) NEGATIVE NEGATIVE [facility] CenterUrine Mvdminb7557-72-96 16:28:00* Test Item Value Reference Range Interpretation Comments Urine Nitrite (test code = 57279-0) NEGATIVE NEGATIVE [facility] CenterUrine Nezviuo9588-38-06 16:28:00* Test Item Value Reference Range Interpretation Comments Urine Protein (test code = 5804-0) NEGATIVE NEGATIVE [facility] CenterUrine Glucose (UA)2017-08-19 16:28:00* Test Item Value Reference Range Interpretation Comments Urine Glucose (UA) (test code = 2349-9) NEGATIVE NEGATIVE [facility] CenterUrine Qduclfi7894-52-30 16:28:00* Test Item Value Reference Range Interpretation Comments Urine Ketones (test code = 49682-5) NEGATIVE NEGATIVE [facility] CenterUrine Dduorsvhihlc9128-74-31 16:28:00* Test Item Value Reference Range Interpretation Comments Urine Urobilinogen (test code = 86090-2) 0.2 0.2-1 [facility] CenterUrine Fntidbuyz4449-91-32 16:28:00* Test Item Value Reference Range Interpretation Comments Urine Bilirubin (test code = 1978-6) NEGATIVE NEGATIVE [facility] CenterUrine Nivjb8475-38-32 16:28:00* Test Item Value Reference Range Interpretation Comments Urine Blood (test code = 76333-2) 4+ NEGATIVE H [facility] CenterCT [facility]PELVIS W [place] [address] Patient Name: DARÍO BARAJAS MR #: [id number] : 1980 Age/Sex: 37/F Req #: [id number] Adm Physician: Ordered by: IVY GARDNER KEY BED INSTALLER Report #: [id number] Location: ER Room/Bed: Procedure: [id number] CT/CT ABDOMEN/PELVIS W Exam Date: 10/17/17 Exam Time: 1520 REPORT STA TUS: Signed EXAM: CT Abdomen and Pelvis WITH contrast INDICATION: COMPARISON: CT 10/03/2017 TECHNIQUE: Abdomen and pelvis were scanned utilizing a multidetector helical scanner from the lung base to the pubic symp hysis after administration of IV contrast. Coronal and sagittal reformations w ere obtained. Routine protocol was performed. Scan was performed when during p ortal venous phase. IV CONTRAST: 100 mL of Isovue-370 ORAL CON TRAST: Water COMPLICATIONS: None RADIATION DOSE: To yun DLP: 684.6 mGy*cm Estimated effective dose: (DLP x 0.015 x size facto r) mSv CTDIvol has been reviewed. It is below the limits set by the Radia tion Protocol Committee (RPC). FINDINGS: LINES and TUBES: Common maricruz e duct stent in place. The pancreatic stent is longer visualized. LOWER T HORAX: Mild bibasilar atelectasis. HEPATOBILIARY: No focal hepatic le sions. No biliary ductal dilation. Previous pneumobilia no longer visualized. GALLBLADDER: There are cholecystectomy clips. No wall thickening. SPL EEN: No splenomegaly. PANCREAS: No focal masses or ductal dilatation. ADRENALS: No adrenal nodules KIDNEYS/URETERS: Kidneys enhance symmet rically. No hydronephrosis. No cystic or solid mass lesions. No stones. GI TRACT: No abnormal distention, wall thickening, or evidence of bowel obstr uction. Appendix is normal. PELVIC ORGANS/BLADDER: Unremarkable. LYMPH NODES: No lymphadenopathy. VESSELS: There is mild atherosclerotic di sease in the aorta and major arterial branches. PERITONEUM / RETROPERITON EUM: Trace free fluid in the deep pelvis. Slightly decreased fluid/inflammator y changes around the pete hepatis. BONES: Unremarkable. SOFT TISSUES: Unremarkable. IMPRESSION: 1. Common bile duct stent remains in place. Lack of pneumobilia within the liver could suggest early tube malf unction. No intrahepatic biliary ductal dilatation to otherwise suggest occlus ion. Consider correlation with LFTs. 2. Slightly decreased postoperative farrar ges of the pete hepatis. Signed by: DR. Oren Conklin MD on 10/17/2017 4: 41 PM Dictated By: OREN CONKLIN MD 1641 Transcribed By: CHARU on 10/17/17 1641 COPY TO: IVY GARDNER KEY BED INSTALLER CHEST SINGLE (PORTABLE) [place] [address] Patient Name: DARÍO BARAJAS MR #: [id number] : 1980 Age/Sex: 37/F Req #: [id number] Adm Physician: Ordered by: IVY GARDNER KEY BED INSTALLER Report #: [id number] Location: ER Room/Bed: Procedure: [id number] DX/CHEST SINGLE (PORTAB LE) Exam Date: 10/17/17 Exam Time: 1450 REPORT STATUS: Signed EXAMINATION: CHEST SINGLE (PORTABLE) INDICATION: COMPARISON: None FINDINGS: AP view TUBES and LINES: None. LUNGS: Lungs are well inflated. Left basilar airspace opacity. There is no evidence of pulmonary edema. PLEURA: Small right pleural effusion. No left pleural effusion. No pneumothorax. HEART AND M EDIASTINUM: The cardiomediastinal silhouette is unremarkable. BONES AN D SOFT TISSUES: No acute osseous lesion. Soft tissues are unremarkable. UPPER ABDOMEN: No free air under the diaphragm. IMPRESSION: Small r ight pleural effusion with adjacent opacity likely representing atelectasis. U nderlying pneumonia not excluded. Signed by: DR. Oren Conklin MD on 3:24 PM Dictated By: OREN CONKLIN MD 1524 Transcribed By: CHARU on 10/17/17 1524 COPY TO: IVY GARDNER KEY BED INSTALLER CT ABDOMEN/PELVIS [place] [address] Patient Name: DARÍO BARAJAS MR #: [id number] : 1980 Age/Sex: 37/F Req #: [id number] Adm Physician: Ordered by: THELMA NEWTON Report #: [id number] Location: ER Room/Bed: Procedure: [id number] CT/CT ABDOMEN/PELVIS W Exam Date: 10/03/17 Exam Time: 1453 REPORT STATUS: Signed EXAM: CT Abdomen and Pelvis WITH contrast INDICATION: S abdominal pain, post ERCP with stents in pancreas. ERCP on 09/28/2017. Incre asing abdominal pain for a few days. Cholecystectomy in August 2017. COMPARIS ON: CT abdomen and pelvis 08/22/2017. MRCP 08/20/2017. CT abdomen pelvis CT 2017. TECHNIQUE: Abdomen and pelvis were scanned utilizing a multidetector [facility] ical scanner from the lung base to the pubic symphysis after administration of IV contrast. Coronal and sagittal reformations were obtained. Routine protocol was performed. Scan was performed when during portal venous phase. IV CONTRAST: 100 mL of Isovue 370 ORAL CONTRAST: Water COMPLICATIONS: None RADIATION DOSE: Total DLP: 757.38 mGy*cm Estimated effective dose: (DLP x 0.015 x size factor) mSv CTDIvol has be en reviewed. It is below the limits set by the Radiation Protocol Committee (R PC). FINDINGS: LINES and TUBES: Common bile duct stent and pancreatic duct stent are in place. LOWER THORAX: Unremarkable HEPATOBILIARY: No focal hepatic lesions. No biliary ductal dilation. Mild pneumobilia. GALLBLADDER: There are cholecystectomy clips. SPLEEN: No splenomegaly. PANCREAS: No focal masses or ductal dilatation. ADRENALS: No adr enal nodules KIDNEYS/URETERS: Kidneys enhance symmetrically. No hydron ephrosis. No cystic or solid mass lesions. No stones. GI TRACT: No abnor mal distention, wall thickening, or evidence of bowel obstruction. Appen amos is normal. PELVIC ORGANS/BLADDER: Unremarkable. LYMPH NODES: No ly mphadenopathy. VESSELS: Unremarkable. PERITONEUM / RETROPERITONEUM: Tr emperatriz free fluid in the deep pelvis. Residual fluid/inflammatory changes around the pete hepatis. BONES: Unremarkable. SOFT TISSUES: Unremarkable. IMPRESSION: 1. Residual fluid/post operative changes around t he pete hepatis. No acute abnormalities identified. 2. Cholecystectomy wit h common bile duct stent in pancreatic duct stent in place. Signed by: Dr Jasmyne Bradley M.D. on 10/03/2017 3:46 PM Dictated By: LUIS BRADLEY MD [facility] Signed By: LUIS BRADLEY MD on 10/03/17 154 Transcribed By: CHARU on 10/03/171545 COPY TO: THELMA NEWTON CT ABDOMEN/PELVIS W [place] [address] Patient Name: DARÍO BARAJAS MR #: [id number] : 1980 Age/Sex: 37/F Req #: [id number] Adm Physician: ABDOUL SHEFFIELD MD Ordered by: GIL SHEFFIELD MD Report #: [id number] Location: MED/SURG Room/Bed: [facility] Procedure: [id number] CT/CT ABDOMEN/PELVIS W Exam Date: 08/22/17 Exam Time: 2251 REPORT STATUS: Signed EXAM: CT ABDOMEN/PELVIS W DATE: 08/22/2017 10:34 PM INDICATION: S (R) LOWER ANTERIOR ABD PAIN, 03/02 NEW ONSET, IV CONTRAST COMPARISON: CT 08/19/2017, MRI 08/20/2017 TECHNIQUE: e abdomen and pelvis were scanned using a multidetector helical scanner. Coron al and sagittal reformations were obtained. Routine protocol performed. IV C ontrast: 100 ml Isovue 370 FINDINGS: LOWER THORAX: New small right greate r than left pleural effusions with increasing basilar opacity, likely atelecta sis LIVER/BILIARY/PERITONEUM: Status post cholecystectomy. There is mild ce ntral intrahepatic and extrahepatic biliary ductal dilation. Radiopaque densit y seen on prior is lateral to the distal common bile duct (coronal image 48) o n current study. There is increasing moderate perihepatic fluid and fluid in t he gallbladder fossa. Small to moderate fluid tracks into the right paracolic gutter and pelvis. SPLEEN: Unremarkable PANCREAS: Unremarkable ADR ENALS: No nodules KIDNEYS: Symmetric perfusion. No enhancing masses. No hydron ephrosis. GI TRACT: Moderate colonic dilation which is also filled with s tool contents and oral contrast from prior study. Normal appendix. VESSEL S: Mild atherosclerotic changes. LYMPH NODES: No lymphadenopathy REPRODUC TIVE ORGANS/BLADDER: Unremarkable SOFT TISSUES: Unremarkable BONES: No adame spicious bone lesions. IMPRESSION: 1. Increasing moderate perihepatic and gallbladder fossa fluid most compatible with a bile/cystic duct leak. 2. Co lonic ileus. Findings discussed with Dr. Sheffield at the time of the study . Signed by: Dr Becka Yanez MD on 08/22/2017 11:34 PM Dictated B y: BECKA YANEZ MD 33 Transcribed By: CHARU on 08/22/174 COPY TO: GIL SHEFFIELD MD ABDOMEN COMP INCL UPR or DECUB [place] [address] Patient Name: DARÍO BARAJAS MR #: [id number] : 1980 Age/Sex: 37/F Req #: [id number] Adm Physician: Ordered by: JAMIE JOHNSON MD Report #: [id number] Location: ER Room/Bed: Procedure: [id number] DX/ABDOMEN COMP INCL UPR or DECUB Exam Date: 08/22/17 Exam Time: 0511 R EPORT STATUS: Signed ABDOMEN COMP INCL UPR or DECUB Clinical history: La paroscopic cholecystectomy, abdominal pain Technique: AP view abdomen Compar rangel: None Findings: Limited by portable technique. Clips and wally ove rlie the right upper abdomen. Moderate stool intermixed with contrast is seen in the colon. Mottled lucencies over the pelvis, presumably intraluminal dino nts/stool. No evidence of free air. Impression: Nonobstructive bowel gas pattern with moderate stool burden. Signed by: Dr Becka Yanez MD on 08/22 5:46 AM Dictated By: BECKA YANEZ MD 5 Transcribed By: CHARU on 08/22/17545 COPY TO: JAMIE JOHNSON MD MRI MRCP WO [place] [address] Patient Name: DARÍO BARAJAS MR #: [id number] : 1980 Age/Sex: 37/F Req #: [id number] Adm Physician: ABDOUL SHEFFIELD MD Ordered by: DESTINEE STEVENS MD Report #: [id number] Location: MED/SURG Room/Bed: [facility] Procedure: [id number] MRI/MRI MRCP WO Exam Date: Exam Time: REPORT STATUS: Signed PROCEDURE: MRCP WITHOUT CONTRAST TECHNIQUE: Mu ltisequence multiplanar MRCP images were obtained of the abdomen without admi nistration contrast. COMPARISON: CT 08/19/2017 INDICATIONS: Not pro vided. FINDINGS: LACK OF GADOLINIUM DECREASES SENSITIVITY FOR DETECT ION OF INTRA-ABDOMINAL PATHOLOGY. LIVER: Normal signal and contour. No focal signal abnormalities. BILIARY: Cholecystectomy with fluid and strandin g within the surgical bed. No ductal dilatation or filling defect. Calcificat ions are difficult to visualize with MRI. Previous punctate density in the pancreatic head on CT is not seen as a filling defect on the current MRI sug gesting this represents a parenchymal, CBD wall, or vascular calcification. PANCREAS: No mass or ductal dilatation. SPLEEN: No splenomegaly. ADRENA LS: No nodules. KIDNEYS: No hydronephrosis or mass in the imaged portion of th e kidneys. PERITONEUM / RETROPERITONEUM: Trace perihepatic free fluid. LYMPH NODES: No upper abdominal lymphadenopathy. VESSELS: Unremarkable. BONES AND SOFT TISSUES: No suspicious marrow signal abnormalities. T2 hype rintense edema in the epigastric fat deep to an area of dephasing from skin s taples. IMPRESSION: 1. No intrahepatic or extrahepatic biliary ductal d ilatation. No evidence of choledocholithiasis. 2. Cholecystectomy with post -operative stranding and fluid in the surgical bed. Dictated by : Oren Conklin M.D. on 08/20/2017 at 13:08 Electronically approved by: Oren Conklin M.D. on 08/20/2017 at 13:08 Dictated By: ANSELMO CONKLIN MD 1308 Transcr ibed By: ROSENDA on 08/20/17 1308 COPY TO: DESTINEE STEVENS MD CT ABDOMEN/PELVIS [place] [address] Patient Name: DARÍO BARAJAS MR #: [id number] : 1980 Age/Sex: 37/F Req #: [id number] Adm Physician: Ordered by: DESTINEE STEVENS MD Report #: [id number] Location: ER Room/Bed: Procedure: [id number] CT/CT ABDOMEN/PELVIS [place] Date: 08/19/17 Exam Time: 1820 REPORT STATU S: Signed PROCEDURE: CT ABDOMEN AND PELVIS WITH CONTRAST TECHNIQUE: The abdomen and pelvis were scanned utilizing a multidetector helical scanner from the diaphragm to the lesser trochanter after the IV administration of 1 00 cc of Isovue 370 and the oral administration of Gastrografin mixture. Jose nal and sagittal multiplanar reformations were obtained. COMPARISON: No ne. INDICATIONS: ADB PAIN POST CHOLECYSCTECOTMY. Umbilical pain that radiates straight back. Onset around 2:30. FINDINGS: LOWER THORAX: Sabrina l. HEPATOBILIARY: No focal hepatic lesions. No biliary ductal dilatation. Common bile duct measures 0.6 cm. 0.6 cm hypodensity adjacent to the dist al common bile duct near the ampulla of Vater. On the sagittal and coronal im ages this is abutting the duct but does not appear to be intraluminal. Postoperative changes of a cholecystectomy with mild inflammatory changes and trace fluid adjacent to the liver. SPLEEN: No splenomegaly. PANCREAS: No focal masses or ductal dilatation. ADRENALS: No adrenal nodules. KIDNE YS/URETERS: No hydronephrosis, stones, or solid mass lesions. PELVIC ORGANS/BL ADDER: Unremarkable. PERITONEUM / RETROPERITONEUM: Trace free fluid in the deep pelvis. LYMPH NODES: No lymphadenopathy. VESSELS: Unremarkable. GI TRACT: No distention or wall thickening. BONES AND SOFT TISSUES:. Fat s tranding around the umbilicus related to laparoscopic approach. Several overl quintin skin wally consistent with arthroscopic port insertion.. IMPRESS ION: 1. New postoperative changes of cholecystectomy with postoperative changes in the cholecystectomy bed with trace of free fluid adjacent to the right hepatic lobe anteriorly. 2. 0.6 cm hyperdensity in the pancreatic head a nd ampulla Vater abutting the common bile duct. This may represent a stone wi thin the common bile duct. However, on several images it appears to abut the duct and is not within the duct. 3. Otherwise, no acute abnormalities ident ified. Dictated by: Luis Bradley M.D. on 08/19/2017 at 18:52 [place] [facility] approved by: Luis Bradley M.D. on 08/19/2017 at 18:52 Dictated By: LUIS BRADLEY MD 51 Transcrib ed By: ROSENDA on 08/19/171851 COPY TO: DESTINEE STEVENS MD US GALLBLADDER [place] [id number] [place] [id number] Patient Name: DARÍO BARAJAS MR #: [id number] : 1980 Age/Sex: 37/F Req #: [id number] Adm Physician: Ordered by: ABDOUL SHEFFIELD MD Report #: [id number] Location: US Room/Bed: Procedure: [id number] US/US GALLBLADDER Exa m Date: Exam Time: REPORT STATUS: Signed P ROCEDURE: US GALLBLADDER COMPARISON: None. INDICATIONS: ABDOMI NAL PAIN FINDINGS: LIVER: Size: 17.2 cm in the right midclavi cular line, enlarged Appearance: Increased echogenicity, smooth contour Ma ss: No focal masses GALLBLADDER: Stones/Sludge: Stones and sludge Appearance: Wall is thickened measuring 5 mm. No pericholecystic fluid or hydrops. Sonographic Qureshi's Sign: Negative BILE DUCTS: I ntrahepatic Ducts: No dilation Extrahepatic Ducts: Common bile duct measur es 0.9 cm, mildly dilated PANCREAS: Visualized portions of the neck and proximal body are normal. RIGHT KIDNEY: Size: 11.3 cm in length Ech ogenicity: Normal Collecting System: No hydronephrosis Stone: None C yst/Mass: None VESSELS: Aorta: Visualized portions are normal. Inf erior Vena Cava: Visualized portions are normal. Main Portal Vein: 1.3 cm, normal size with hepatopetal flow. FREE FLUID: No ascites or pleural ef fusions. CONCLUSION: Cholelithiasis with mild gallbladder wall th ickening but without sonographic Qurehsi's sign. Findings are suspicious for a cute cholecystitis. Mildly dilated common bile duct measuring 9 mm whi ch raises concern for choledocholithiasis. Consider MRCP for further evaluati on. Findings discussed with Dr. Sheffield on 08/13/2017 at 2:55 pm. Dictated by: Oren Conklin M.D. on 08/13/2017 at 14:44 Elec tronically approved by: Oren Conklin M.D. on 08/13/2017 at 14:59 Dictated By: OREN CONKLIN MD [id number] Transcribed By: ROSENDA on 08/13/17 145 COPY TO: ABDOUL ROGEL MD
== END 2020-01-01 23:20 | disposition home or self-care (01) ==
LOC: ER 21:27
DX: M25.511 Pain in right shoulder (principal); M54.9 Dorsalgia, unspecified; F41.9 Anxiety disorder, unspecified
CPT/HCPCS: 36415; 71045; 80053; 82550; 82553; 83880; 84484; 85025; 85610; 85730; 93005; 99284; J1885